=== PATIENT | female | born 1990 | race Caucasian/White ===

== ENCOUNTER 2019-12-15 12:15 | Inpatient (IN) | payer MEDICAID, SELFPAY ==
[2019-12-15] VITALS (44 sets, daily range): BP systolic 103–138; BP diastolic 57–97; PULSE 55–189; RESP 16; TEMP 36.6–37.8; O2SAT 84–100; BMI 25.1
--- NOTE | 2019-12-15 | PLAC_PTH ---
PATIENT: KYLE HILL LOC: WP U#:[id number] AGE/SX: 29/F ROOM: WP019 RE12/15/[address]: Dr. Steffany Ruano MD : 1990 BED: 1 DIS: 12/17/2019 SPEC #: [id number] RECD: 12/15/19 22:14 STATUS: CRISTIANE LAVERNE #: [id number] RADHA: 12/15/19 00:[address]: Steffany Ruano DEPT: SURGICAL PATHOLOGY RECD BY: Jose Raul Ocasio ENTERED: 12/16/19 12:04 SP TYPE: PLACENTA OTHR DR: No Primary Care Phys Tissues: Placenta, NOS Procedures: Surgery Specimen Level V HEADER OPERATION: Vaginal delivery PRE-OP DIAGNOSIS: Growth restriction of fetus TISSUE SUBMITTED: Placenta MICROSCOPIC DIAGNOSIS Reilly placenta (294 gm): Umbilical cord - trivascular with no inflammation. Placental membranes - no evidence of inflammation. Placental disc - Chichi-Lito change and intervillous congestion. AM:alexandra 12/17/19 MICROSCOPIC DESCRIPTION Slides are reviewed. GROSS DESCRIPTION SPECIMEN: PLACENTA / CLINICAL INFORMATION: A. Weight: 2.33 kg B. Gestational Age: 38 weeks C. Sex: Male PLACENTAL WEIGHT (POST FIXATION): 294 gm PLACENTAL DIMENSIONS: 17 x 12 x 2.5 cm PLACENTAL SHAPE: Usual ovoid, received in two fragments PLACENTAL WEIGHT FOR GESTATIONAL AGE: Under 10th percentile MEMBRANES - Present A. Insertion: Marginal B. Site of rupture from edge: At edge of placental disc C. Color of membrane: Machado-gabriel D. Abnormalities: None UMBILICAL CORD - Present A. Color: Machado-gabriel B. Insertion: Eccentric and received in two parts C. Length: 35 cm D. Diameter: 1 cm E. Number of vessels: Three F. Abnormalities: None PLACENTAL DISC - Present A. Color of surface: Machado-gabriel B. surface abnormalities: None C. Maternal cotyledons: Intact with minimal tears D. Attached retro placental clot: No clot E. Cut surface: Dark red and spongy F. Lesions: None G. Separate clot: 4.5 x 5 x 1 cm SECTIONS SUBMITTED: 1. Umbilical cord ( end notched) 2. Umbilical cord, placental end 3. Membrane roll 4. Placental disc, and maternal surfaces 5. Placental disc, and maternal surfaces 6. Placental disc, and maternal surfaces AM:alexandra 12/16/19 TC:5 CPT: 39896
[2019-12-15] MEDS: Lactated Ringers 1,000 ML 999 ML IV (12:45)
[2019-12-15] MEDS: Oxytocin 30 units/NS 500 ml 30 UNITS/500 ML IV.SOLN IV (13:15)
[2019-12-15 13:34] LABS: Absolute Lymphocyte Count 1.96 X10^3/uL (0.83-4.51); Absolute Neutrophil Count 11.1 X10^3/uL (2.0-7.7); Basophil# 0.05 X10^3/uL; Basophil% 0.3 % (0-1); Eosinophil# 0.17 X10^3/uL; Eosinophils% 1.2 % (0-5); Hematocrit 38.7 % (37-47); Hemoglobin 12.6 g/dL (12.0-15.0); Lymphocyte # 1.96 X10^3/ul (4.0); Lymphocyte % 13.5 % (19-41); Mean Corp Hgb Conc 32.6 g/dL (32-36); Mean Corpuscular Hgb 30.6 pg (27.0-32.0); Mean Corpuscular Volume 93.9 fL (81-99); Mean Platelet Vol. 11.4 fl (6.2-12.0); Monocyte# 0.94 X10^3/uL; Monocyte% 6.5 % (0-10); NRBC Flagged by Analyzer 0 % (0-5); Neutrophil # 11.09 X10^3/uL (2.7-7.7); Neutrophil % 76.7 % (47-70); Platelet Count 177 K/mm3 (150-450); RBC Distribution Width CV 14.3 % (11.6-14.6); RBC Distribution Width SD 48.9 fl (35.1-43.9); Red Blood Count 4.12 M/mm3 (4.2-5.4); White Blood Count 14.5 K/mm3 (4.4-11.0)
[2019-12-15 13:51] LABS: Amphetamine Urine VISTA NEGATIVE (<1000 ng/mL); Barbiturate Urine VISTA NEGATIVE (< 200 ng/mL); Benzodiazepine Urine VISTA NEGATIVE (< 200 ng/mL); Cocaine Urine VISTA NEGATIVE (< 300 ng/mL); Ecstacy Urine VISTA NEGATIVE (< 500 ng/mL); Methadone Urine VISTA NEGATIVE (< 300 ng/mL); PCP Urine VISTA NEGATIVE (< 25 ng/mL); THC Urine VISTA NEGATIVE (< 50 ng/mL); Vista UDS pH Range 7
[2019-12-15] MEDS: Lactated Ringers 500 ML 999 ML IV (14:40)
[2019-12-15] MEDS: fentaNYL-bupivacaine (epidural) 100 ML BAG EPIDURAL ×2 (15:44→19:52)
[2019-12-15] MEDS: Lactated Ringers 1,000 ML 200 ML IV (16:07)
--- NOTE | 2019-12-15 17:49 | PCM.HP.OB ---
History Date of Admission: 10/29/15 Final MASON: 12/29/19 Final MASON Source: US <20 weeks Gestational age: 38 Weeks and 0 Days History of this : This is a 29 year-old, 4 para 2-0-1-2 at 38 weeks gestation with intrauterine growth restriction, estimated weight approximately 6 percentile by ultrasound. She denies any vaginal bleeding or leaking of fluid. She has good movement. is complicated to date by late care, tobacco use in , history of previous small for gestational age , abnormal Pap smear. Allergies azithromycin [From Zithromax] Allergy (Verified 12/15/19 12:40) Itching sulfamethoxazole [From Bactrim] Allergy (Verified 02/18/17 15:08) Itching trimethoprim [From Bactrim] Allergy (Verified 02/18/17 15:08) Itching Smoking Status: Current every day smoker Alcohol: None Number of Fetus(es): 1 NST - FHR Rate Baby A Baseline: normal Variability:: Moderate Accelerations:: 15 x 15 Decelerations:: None NST Reactive:: Yes FHR Category:: Category I Uterine Activity:: irreg History Past Pregnancies: Past Pregnancies Delivery Date Name GA/ Weeks Outcome Route Wt Sex Labor Length Anesthesia Delivery Location Provider FOB Expected Delivery Method: Spontaneous Vaginal Review of Systems Constitutional: Denies: Chills, Fever Eyes: Denies: Blurred vision Cardiovascular: Denies: Chest Pain Respiratory: Denies: Cough, Shortness of Breath Genitourinary: Denies: Dysuria Skin: Denies: Pruritis, Rash Neurological: Denies: Blurred vision, Change in Speech Physical Exam Vitals: Vital Signs Temp Pulse BP Pulse Ox 98.0 F 60 104/67 99 12/15/19 15:58 12/15/19 17:02 12/15/19 17:00 12/15/19 17:02 General: Alert, Cooperative, No apparent distress Cardiovascular: Regular rate Lungs: Normal air movement Abdomen: Soft, Non Tender, Gravid Neurological: Cranial nerves II-XII grossly intact Estimated gestational size: Appropriate for gestational size Presentation: Cephalic Cervix Dilation (cm): 3 Station: -3 Effacement (%): 60 Assessment/Plan All Active Problems Pyelonephritis (Acute) This is a 29 year-old 4 para 2-0-1-2 at 38 weeks gestation with intrauterine growth restriction. Risk benefits and alternatives to induction were discussed with the patient her questions were answered to her satisfaction she desires to proceed. Pelvis clinically adequate to expect vaginal delivery. May have epidural as needed for pain control. Recent COVID-19 test was negative. Patient strongly desires tubal ligation before being discharged home. She understands this is permanent, irreversible risk of failure and regret. Will attempt to schedule this in the OR tomorrow if acuity of the unit does not allow it to be done tonight.
[2019-12-15] MEDS: Oxytocin 30 units/NS 500 ml 30 UNITS/500 ML IV.SOLN 334 UNITS IV (21:28)
--- NOTE | 2019-12-15 21:42 | PCM.OPRPT ---
Vaginal Delivery Maternal Presentation: Medically Indicated Induction Method of Induction: Pitocin, Amniotomy Medical Reason for Induction: - - IUGR Amniotic Membrane Rupture Type: Artificial Amniotic Fluid Description: Clear Final MASON: 12/29/19 Final MASON Source: US <20 weeks Gestational age: 38 Weeks and 0 Days Date of Procedure: 12/15/19 Pre-Operative Diagnosis: labor Post-Operative Diagnosis: same Surgery/ Procedure Performed: Spontaneous Vaginal Delivery Type of Anesthesia: Epidural Description of Procedure: A vigorous female was delivered KELI over a small first-degree perineal laceration. The remainder the infant was delivered with maternal pushing and gentle traction only in less than 15 seconds. The Pitocin infusion was initiated for active management of the third stage. The cord was clamped and cut after 1 minute. The infant was attended to by the waiting nursing staff. The placenta was delivered spontaneously and intact. The cervix and vagina were intact. Laceration was not repaired. Sponge and needle counts were correct. A vaginal sweep was completed by me. Presentation: KELI Placental Delivery Description: Spontaneous Placenta Disposition: [facility] Cord Vessel Description: 3 Vessels Cord Entanglement: None Drain: Hernandes to straight drain Estimated Blood Loss: 300 A gender: Female - Migdalia (1 minute): 8 (5 minute): 9 Episiotomy Description: None Laceration: 1st degree - perineal, < 1 cm, not repaired Medications given after delivery: IV Pitocin Complications: None
[2019-12-15 22:18] LABS: Pathology Specimen OB SEE PATHOLOGY REPORT
[2019-12-16] VITALS (18 sets, daily range): BP systolic 112–157; BP diastolic 60–91; PULSE 51–68; RESP 16–18; TEMP 36.3–37.1; O2SAT 96–100
--- NOTE | 2019-12-16 | FALS_PTH ---
PATIENT: KYLE HILL LOC: WP U#:[id number] AGE/SX: 29/F ROOM: WP019 RE12/15/[address]: Dr. Steffany Ruano MD : 1990 BED: 1 DIS: 12/17/2019 SPEC #: [id number] RECD: 12/16/19 14:36 STATUS: CRISTIANE LAVERNE #: [id number] RADHA: 12/16/19 00:[address]: Steffany Ruano DEPT: SURGICAL PATHOLOGY RECD BY: Jose Raul Ocasio ENTERED: 12/16/19 14:36 SP TYPE: FALL TUBES OTHR DR: No Primary Care Phys Tissues: Fallopian tube Procedures: Surgery Specimen Level II HEADER OPERATION: bilateral tubal occlusion PRE-OP DIAGNOSIS: Sterilization TISSUE SUBMITTED: Bilateral fallopian tubes MICROSCOPIC DIAGNOSIS Bilateral fallopian tubes, salpingectomy: Bilateral fallopian tubes including fimbrial ends, no pathologic diagnosis. CAT:alexandra 7/31/20 MICROSCOPIC DESCRIPTION Slides are reviewed. GROSS DESCRIPTION Received in fixative is one container labeled with the patient's name and designated bilateral fallopian tubes. The specimen consists of bilateral fallopian tubes including fimbrial ends measuring 7 cm in length and 0.5 cm in diameter and 8 cm in length and 0.5 cm in diameter. The fallopian tubes are not identified as right or left. Sections reveal unremarkable cut surfaces. Mathematics Academic Chair sections are submitted in two cassettes as follows: 1 - first fallopian tube, 2?-?second fallopian tube. / CAT:alexandra 12/16/19 TC:4 CPT: 95869 x2
[2019-12-16] MEDS: Acetaminophen 500 MG Tablet 1000 MG PO (03:50)
[2019-12-16] MEDS: Naproxen 250 MG Tablet 500 MG PO (05:12)
[2019-12-16 05:54] LABS: Hematocrit 35.7 % (37-47); Hemoglobin 11.9 g/dL (12.0-15.0); Mean Corp Hgb Conc 33.3 g/dL (32-36); Mean Corpuscular Hgb 30.4 pg (27.0-32.0); Mean Corpuscular Volume 91.3 fL (81-99); Platelet Count 144 K/mm3 (150-450); RBC Distribution Width CV 13.9 % (11.6-14.6); RBC Distribution Width SD 46.2 fl (35.1-43.9); Red Blood Count 3.91 M/mm3 (4.2-5.4)
[2019-12-16] MEDS: 0.9% Saline Lock 10 ML Syringe IV ×3 (07:53→12:13)
[2019-12-16] MEDS: Lactated Ringers 500 ML 999 ML IV (08:28)
--- NOTE | 2019-12-16 08:35 | NURSING ---
Ordered received for no SCDs. Pt to receive 500 cc LR IV bolus pre-op per telephone call with OR charge nurse as of 08 on 12/16/2019.
[2019-12-16] MEDS: Lactated Ringers 1,000 ML 100 ML IV ×2 (09:13→09:30)
--- NOTE | 2019-12-16 09:32 | NURSING ---
0828: Pt informed of orders received for pre-op. IV site intact and IV bolus initiated. Pre-op checklist started and completed. 0845: Report given to NUTRITIONAL YEAST SUPERVISOR, assuming care. IV observed at this time to be infiltrated. IV bolus stopped. NUTRITIONAL YEAST SUPERVISOR to change IV site per NUTRITIONAL YEAST SUPERVISOR. Pt to OR for tubal as scheduled. Baby to nursery at this time due to no support person present.
--- NOTE | 2019-12-16 10:34 | OP.PCM_ITS ---
Report of Operation Date of Procedure: 12/16/19 Pre-Operative Diagnosis: sterilization request Post-Operative Diagnosis: same Surgery/Procedure Performed:: bilateral salpingectomy Description of Surgical Findings:: normal tubes and ovaries senior technical project manager: Jackelyn Genao Type of Anesthesia:: General Anesthesiologist: Orlando Judd Special Medications: none Specimen's removed: bilateral fallopian tubes Drains: none Estimated Blood Loss (mL): 10 Fluids Replaced: 800 cc Description of Procedure: The patient was taken the operating room where she is prepped and draped in dorsal supine position. Her epidural was not adequate so general anesthetic had been initiated. A 3 cm subumbilical incision was made with the scalpel and carried through to underlying layer fascia with a scalpel. The fascia was gras ped with Allis clamps and tented up and entered sharply with a scalpel. Peritoneum was tented up between hemostats and entered with Metzenbaum scissors. The patient was tilted to the left and the right tube was identified and followed out to the fimbriated end. The LigaSure device was used to clamp, seal, and transect the tube along the antimesenteric portion to the insertion at the cornua. The tube was amputated with the cornea with the LigaSure device. The pedicles were hemostasis. Same procedure was performed on the contralateral side. The fascia was closed with 0 Vicryl suture in a running standard fashion. The skin was reapproximated with full suture in a subcuticular fashion and skin glue was placed over the incision. She was awakened taken recovery room in stable condition. All sponge and needle counts were correct. I performed the entire procedure with assistance. Grafts/Implants Used: none - Complications none - Admit VTE Documentation VTE Present on Admission: No VTE Mechan Device Prophylaxis: SCD's VTE Pharm Prophylaxis ordered?: No Reason prophylaxis not ordered:: Treatment Not Indicated
--- NOTE | 2019-12-16 19:05 | CASEMGMT ---
Social Work Assessment Labor and Delivery Unit Date of Referral: 12/16/2019 Date of Intervention: 12/16/2019 Time of Intervention: 19:05 Reason for Referral: Substance Use, positive THC early on in . History obtained from: MEDICAL RECORD, MOTHER OF BABY (MOB) Household composition: MOB, FOB-Jacques Miranda, son-Duy Miranda age 4 and Jacques?s son, Renny. Educational Status: High School Graduate Financial Status: Limited. MOB reports Jacques is currently not working and is currently admitted to ICU here at [facility]. MOB states she is on maternity leave from [employer]. Infant Supplies: MOB reports has all needed supplies for baby including clothes, crib, car seat, diapers, wipes. Childcare/Caregiver(s): MOB reports will be main caregiver for baby Migdalia ham. Transportation: MOB denies any issues with transportation Programs/Agencies Involved: S, [facility] Children Services/Legal Issues: MOB reports history of children services involvement with her first child, Ben Lindsay who is now age 9. MOB reports Ben has lived with his father for the last 3 years. Behavioral Health Issues: Mental Health History: MOB denies any history of mental health. Substance Use History: MOB reported is a ? pack a day smoker. MOB reports she and FOB do not smoke in the home. MOB admits to marijuana use early on in . MOB states care did not begin until she was 3 months into . MOB?s tox screen was negative upon admission. Baby?s urine tox screen was negative. Awaiting meconium results. Family/Social Stressors: MOB reports found FOB unresponsive last week and he is been in ICU on life support. MOB states today FOB was extubated, and she was able to speak with him. MOB states has had good support from family. Support Systems: MOB reports good support from both her family and FOB?s family. Depression/Shaken Baby/Safe Sleeping Reviewed and resources provided. ASSESSMENT: Met with MOB in room. Introduced role and reason for referral. MOB holding baby Migdalia ham upon entering the room. MOB discussed use of marijuana and believes last use was very early on in . MOB states would use marijuana recreationally and denies plan to continue use. MOB was aware of positive tox screen for THC during . MOB reports did not have care until she was 3 months along. Informed MOB will need to follow up on baby girls meconium results. MOB verbalized understanding. MOB reports is a ? pack a day smoker and states does not smoke in the home. MOB denies any other substance use. Discuss FOB?s current status as MOB reported FOB is admitted to ICU and was extubated today. MOB states was able to speak with FOB and updated on the of their daughter. MOB denies any history of mental health for self or FOB. MOB reports is not aware of any substance use for FOB. MOB reports feels safe in the home and is looking forward to going home. MOB reports good support from family. MOB denies any needs for resources and states already called WIC this day to get baby established. MOB was provided with list of resources for [facility]. Updated nursing on this worker?s assessment. Anticipate discharge tomorrow, 12/17/2019 PLAN: HOME WITH RESOURCES PROVIDED. No other services requested or indicated. -Leonarda Mccarthy, SPANISH INTERPRETER/TRANSLATOR, TENNIS BALL COVER CEMENTER
[2019-12-17 01:18] VITALS: BP 135/74; PULSE 48
[2019-12-17 01:25] VITALS: BP 135/74; PULSE 70; RESP 18; TEMP 36.6
--- NOTE | 2019-12-17 07:45 | PCM.PN.OB ---
Subjective: Patient seen at bedside. Requesting to be discharged home as soon as possible. Pain is controlled. Incision from tubal ligation is well approximated, not red or edematous. Bottle feeding infant. - Physical Exam Vitals/I&O's: Vital Signs Temp Pulse Resp BP Pulse Ox 97.9 F 70 18 135/74 H 98 12/17/19 01:25 12/17/19 01:25 12/17/19 01:25 12/17/19 01:25 12/16/19 12:51 Oxygen Flow Rate (L/min) 2 Oxygen Delivery Method Room Air Weight: 165 lb 6.4 oz Body Mass Index (BMI) 25.1 Intake and Output for Last 24 Hours 12/15/19 12/16/19 12/17/19 23:59 23:59 23:59 Intake Total 3479.75 / 3812.75 1553.00 / 1553.00 Output Total 1400 / 1400 1000 / 1000 Balance 2079.75 / 2412.75 553.00 / 553.00 General: Alert, Oriented x3 Neck: Supple Lungs: Normal air movement Cardiovascular: Regular rate Abdomen: Soft, Non Tender, Passing Flatus Skin: No rashes Neurological: Cranial nerves II-XII grossly intact Psych/Mental Status: Normal Affect, Appropriate Current Medications Acetaminophen (Tylenol) 1,000 mg PO Q8H PRN PRN PRN Reason: Pain Score 1-3/10 Last Admin: 12/16/19 03:50 Dose: 1,000 mg Documented by: Bisacodyl (Dulcolax) 10 mg RECTAL UD PRN PRN Reason: If no BM Dibucaine (Dibucaine) 1 applic TOPICAL TID PRN PRN; Protocol PRN Reason: Discomfort Hydrocortisone (Hytone) 1 applic TOPICAL TID PRN PRN; Protocol PRN Reason: Discomfort Methylergonovine Maleate (Methergine) 0.2 mg IM X1 PRN PRN Reason: Excess bleeding/uterine atony Naproxen (Naprosyn) 500 mg PO Q8H PRN PRN PRN Reason: Pain Score 1-3/10 Last Admin: 12/16/19 05:12 Dose: 500 mg Documented by: Ondansetron HCl (Zofran) 4 mg IV Q4H PRN PRN PRN Reason: Nausea Oxycodone HCl (Oxyir) 5 - 10 mg PO Q4H PRN PRN PRN Reason: Pain Score 4-10/10 Senna/Docusate Sodium (Senokot-S, Sandra-Colace) 1 - 2 tablet PO DAILY PRN PRN PRN Reason: Constipation Simethicone (Mylicon) 80 mg PO PCHS PRN PRN Reason: Indigestion/Stomach pain Sodium Chloride () 5 - 15 ml IV UD PRN PRN Reason: SALINE FLUSH Last Admin: 12/16/19 12:13 Dose: 10 ml Documented by: Medical Necessity - Tobacco Use Smoking Status: Current every day smoker Assessment/Plan All Active Problems Pyelonephritis (Acute) PPD 2 intact perinium Post op bilateral tubal ligation Routine care Discharge home today
[2019-12-17 07:51] VITALS: BP 119/62; PULSE 56; RESP 18; TEMP 37.1; O2SAT 98
[2019-12-17 07:52] VITALS: PULSE 64; O2SAT 98
--- NOTE | 2019-12-17 07:56 | DCINST_ITS ---
Discharge Diet: No Restrictions Discharge Activity: Return to Normal Activity Allergies/Adverse Reactions: Allergies azithromycin [From Zithromax] Allergy (Verified 12/15/19 12:40) Itching sulfamethoxazole [From Bactrim] Allergy (Verified 02/18/17 15:08) Itching trimethoprim [From Bactrim] Allergy (Verified 02/18/17 15:08) Itching Medications to take at Discharge Oxycodone [Oxyir] 5 - 10 mg PO Q4H PRN PRN 3 Days #8 tablet 12/17/19 The following prescriptions were given: Oxycodone [Oxyir] 5 - 10 mg PO Q4H PRN PRN 3 Days #8 tablet PRN Reason: Pain Score 4-10/10 Transmission Status: Sent to [id number] Primary Care Physician: Care Physician,No Primary [Primary Care Provider] - Test Results: Test results from this visit will be discussed in further detail at your follow- up appointment, if applicable. Proposed Discharge Date: 12/17/19
[2019-12-17 07:57] VITALS: BP 119/62; PULSE 56; RESP 18; TEMP 37.1; O2SAT 98
--- NOTE | 2019-12-17 07:58 | DCINST_ITS ---
Discharge Diet: No Restrictions Discharge Activity: Return to Normal Activity Additional Instructions: If you experience any of the following, contact your healthcare provider. * Bleeding that soaks a pad every hour for 2 hours * Fever 100.4 or higher * Unrelieved incision or abdominal pain * Swelling, redness, discharge or bleeding from your incision or episiotomy site * Your incision begins to separate * Problems urinating (including inability to urinate or burning while urinating). * Visual changes * Severe headache * Flu-like symptoms * Pain or redness in one of both of your breasts * Pain, warmth, tenderness or swelling in your legs, especially the calf area * Frequent nausea and vomiting * Symptoms of depression or anxiety If you experience any of the following, call 911 or go to the nearest Emergency Room. * Chest pain * Problems breathing * Seizure activity * Partial or complete paralysis of a body part, slurred speech, weakness or drooping of the face, or a sudden inability to walk or hold your balance Allergies/Adverse Reactions: Allergies azithromycin [From Zithromax] Allergy (Verified 12/15/19 12:40) Itching sulfamethoxazole [From Bactrim] Allergy (Verified 02/18/17 15:08) Itching trimethoprim [From Bactrim] Allergy (Verified 02/18/17 15:08) Itching Medications to take at Discharge Oxycodone [Oxyir] 5 - 10 mg PO Q4H PRN PRN 3 Days #8 tablet 12/17/19 The following prescriptions were given: Oxycodone [Oxyir] 5 - 10 mg PO Q4H PRN PRN 3 Days #8 tablet PRN Reason: Pain Score 4-10/10 Transmission Status: Sent to [id number] Please Follow Up With: Steffany Ruano MD When: 2 weeks virtual and 6 weeks in office Primary Care Physician: Care Physician,No Primary [Primary Care Provider] - Test Results: Test results from this visit will be discussed in further detail at your follow- up appointment, if applicable. Proposed Discharge Date: 12/17/19
--- NOTE | 2019-12-17 07:58 | PCM.DCVAG ---
Discharge Diet: No Restrictions Discharge Activity: Return to Normal Activity Additional Instructions: If you experience any of the following, contact your healthcare provider. Bleeding that soaks a pad every hour for 2 hours Fever 100.4 or higher Unrelieved incision or abdominal pain Swelling, redness, discharge or bleeding from your incision or episiotomy site Your incision begins to separate Problems urinating (including inability to urinate or burning while urinating). Visual changes Severe headache Flu-like symptoms Pain or redness in one of both of your breasts Pain, warmth, tenderness or swelling in your legs, especially the calf area Frequent nausea and vomiting Symptoms of depression or anxiety If you experience any of the following, call 911 or go to the nearest Emergency Room. Chest pain Problems breathing Seizure activity Partial or complete paralysis of a body part, slurred speech, weakness or drooping of the face, or a sudden inability to walk or hold your balance Allergies/Adverse Reactions: Allergies azithromycin [From Zithromax] Allergy (Verified 12/15/19 12:40) Itching sulfamethoxazole [From Bactrim] Allergy (Verified 02/18/17 15:08) Itching trimethoprim [From Bactrim] Allergy (Verified 02/18/17 15:08) Itching Medications to take at Discharge Oxycodone [Oxyir] 5 - 10 mg PO Q4H PRN PRN 3 Days #8 tablet 12/17/19 The following prescriptions were given: Oxycodone [Oxyir] 5 - 10 mg PO Q4H PRN PRN 3 Days #8 tablet PRN Reason: Pain Score 4-10/10 Transmission Status: Sent to [id number] Please Follow Up With: Steffany Ruano MD When: 2 weeks virtual and 6 weeks in office Primary Care Physician: Care Physician,No Primary [Primary Care Provider] - Test Results: Test results from this visit will be discussed in further detail at your follow-up appointment, if applicable. Proposed Discharge Date: 12/17/19
--- NOTE | 2019-12-20 10:50 | CASEMGMT ---
SOCIAL WORK Report called to Danae with [facility] regarding MOB's use of THC during and FOB's reported use of meth. Will fax meconium results once received. Radha Mccarthy, ENVIRONMENTAL HEALTH AND SAFETY MANAGER, CAGE TENDER
== END 2019-12-17 10:20 | disposition home or self-care (01) | DRG 541 ==
PROVIDERS: Obstetrics & Gynecology; Admitting Provider Obstetrics & Gynecology; Referring Provider Obstetrics & Gynecology; Visit Provider Obstetrics & Gynecology
PROC: 0UL70ZZ Occlusion of Bilateral Fallopian Tubes, Open Approach (ICD-10-PCS; principal; 2019-12-16 09:25)
DX: O36.5930 Maternal care for other known or suspected poor fetal growth, third trimester, not applicable or unspecified (principal); O70.0 First degree perineal laceration during delivery; O99.334 Smoking (tobacco) complicating childbirth; F17.200 Nicotine dependence, unspecified, uncomplicated; Z3A.38 38 weeks gestation of pregnancy; Z37.0 Single live birth; Z30.2 Encounter for sterilization
CPT/HCPCS: 59025; 59050; 80307; 85025; 85027; 86850; 86900; 86901; 87635; 88302; 88307; 94799; 99218; J7120; A4216; G0378; J2405; U0003

== ENCOUNTER 2023-10-21 09:01 | Emergency (ER) | payer MEDICAID, SELFPAY ==
[2023-10-21 09:02] VITALS: BP 115/74; PULSE 76; RESP 16; TEMP 35.9; O2SAT 100; BMI 17.4
--- NOTE | 2023-10-21 09:29 | ED.VIS.DENTA ---
HPI History of Present Illness Chief Complaint: Dental Detail of Chief Complaint: Dental pain Narrative Narrative: Patient presents with right lower dental pain that started 2 days ago. She describes some swelling to her gum. He denies fevers or chills or sweats. Patient does not have primary care physician or dentist currently. She denies any trauma to her teeth. PFSH PFSH Home Medications ?Medication ?Instructions ?Recorded ?Last Taken ?Type clindamycin HCl 300 mg capsule 300 mg PO Q6H #40 CAPSULES 10/21/23 Unknown Rx (Cleocin HCl) naproxen 500 mg tablet 500 mg PO BID #20 tabs 10/21/23 Unknown Rx Allergy/AdvReac Type Severity Reaction Status Date / Time azithromycin (From Zithromax) Allergy Itching Verified 12/15/19 12:40 sulfamethoxazole (From Allergy Itching Verified 02/18/17 15:08 Bactrim) trimethoprim (From Bactrim) Allergy Itching Verified 02/18/17 15:08 Social History Smoking Status: Current every day smoker tobacco type: cigarettes ROS ROS ED Review of Systems ROS Unobtainable: other Constitutional Constitutional ED: Reports lethargy; Denies chills, fever(s), sweats or weight loss Eyes Eyes: Denies blurry vision, change in vision or diplopia ENT ENT ED: Reports other Details: Dental pain ; Denies rhinorrhea or sore throat Cardiovascular Cardiovascular: Denies chest pain, orthopnea or racing heartbeat Respiratory/Chest Respiratory/Chest: Denies cough, dyspnea, dyspnea on exertion, orthopnea or sputum Gastrointestinal Gastrointestinal: Denies abdominal pain, diarrhea, nausea or vomiting Genitourinary Genitourinary ED: Denies dysuria, hematuria or urinary frequency Musculoskeletal Musculoskeletal: Denies arthralgias, back pain, myalgias or neck pain Integumentary Denies abscess, Abrasions or rash Neurologic Neurologic: Denies headache(s) or weakness Psychiatric Psychiatric: Denies anxiety, depression or suicidal thoughts Endocrine Endocrinology: Denies polydipsia, polyphagia or polyuria Hematologic/Lymphatic Hematologic/Lymphatic: Denies easy bleeding, easy bruising or lymphadenopathy Allergic/Immunologic Allergic/Immunologic ED: Denies mouth swelling, tongue swelling or urticaria EXAM Physical Exam Const Vital Signs: 10/21/23 09:02 Temperature 96.7 F L Temperature Source Temporal Pulse Rate 76 Respiratory Rate 16 Blood Pressure 115/74 Blood Pressure Mean 87 Pulse Ox 100 Oxygen Delivery Method Room Air Positive well nourished and well developed General Appearance ED: well developed and NAD HEENT Reports TM's clear and moist mucous membranes HEENT Narrative: Dentition-patient has tenderness palpation over right lower molar #31. I do not appreciate any gingival erythema or abscess. No trismus on exam. No facial erythema or cellulitic changes noted. normocephalic and atraumatic; Negative for trauma or tenderness Tympanic Membrane ED: Yes TM's clear Eyes PERRL and EOMs intact bilaterally General Eye ED: Negative for pale conjunctiva or scleral icterus Neck no lymphadenopathy, supple and no JVD General: Negative for tenderness Chest Wall inspection of chest normal and palpation of chest normal Chest: Negative for tenderness Resp normal respiratory effort and clear to auscultation bilaterally Effort and Inspection: Negative for respiratory distress or pain with movement Auscultation: Negative for rhonchi, wheezes or diminished lung sounds Cardio regular rate, regular rhythm, S1 normal heart sound, S2 normal heart sound and no murmurs Peripheral Pulses: pulses 2+ throughout GI normal to inspection, nondistended, normoactive bowel sounds, soft to palpation, non-tender, non-distended and no masses Back/Spine no CVA tenderness and no thoracic nor lumbar tenderness Extremity normal to inspection General Extremety ED: Negative for edema General Extremity: Negative for edema Neuro oriented x3, CN's II-XII intact bilaterally, no sensory deficits noted and gait normal Sensorium / Orientation: awake, alert, oriented to person, oriented to place and oriented to time Motor Exam: strength 5/5 throughout and strength abnormal Psych mental status grossly normal Skin no rashes or lesions noted and no wounds MDM MDM MDM Narrative Medical decision making narrative: Patient with dental pain without evidence of fever or significant swelling. Will start on clindamycin. She does have a broken and carry tooth #31 that is tender to palpation. Will give her naproxen for discomfort. Refer to dentist for follow-up. Discharge Plan Triage Chief Complaint: Dental ED Provider: Gabriel Mitchell Dx/Rx/DC Orders Clinical Impression: Pain, dental Instructions: ED Dental Pain Prescriptions: New clindamycin HCl [Cleocin HCl] 300 mg capsule 300 mg PO Q6H Qty: 40 0RF naproxen 500 mg tablet 500 mg PO BID Qty: 20 0RF Primary Care Provider: Care Physician,No Primary Referrals: Care Physician,No Primary [Primary Care Provider] - Activity Restrictions/Additional Instructions: Follow-up with the dentist at earliest possible time. Print Language: Albanian Disposition Disposition: Home, Self Care
[2023-10-21] MEDS: Clindamycin HCl 150 MG Capsule 300 MG PO (09:42)
[2023-10-21 09:46] VITALS: BP 115/75; PULSE 82; RESP 16; TEMP 36.4; O2SAT 98
== END 2023-10-21 09:47 | disposition home or self-care (01) ==
PROVIDERS: Emergency Provider Emergency Medicine; Visit Provider Emergency Medicine
DX: K08.89 Other specified disorders of teeth and supporting structures (principal); F17.210 Nicotine dependence, cigarettes, uncomplicated
CPT/HCPCS: 99282

== ENCOUNTER 2023-11-04 08:39 | Emergency (ER) | payer MEDICAID, SELFPAY ==
[2023-11-04 08:39] VITALS: BP 111/74; PULSE 62; RESP 14; TEMP 36.1; O2SAT 100; BMI 17.7
--- NOTE | 2023-11-04 08:52 | EDS_ITS ---
HPI History of Present Illness Chief Complaint: Complaint Detail of Chief Complaint: Dysuria x 3 days Informant: patient Onset/Context/Timing Onset: Days (Onset 3 days ago) Context: Sudden Onset Timing: Intermittent Quality: Burning sensation Location: Urethra Current Severity: Gone Maximum Severity: Severe Worsened by: Urination Associated Symptoms Associated Symptoms: Nausea and vomiting x 1 this morning Narrative Narrative: Patient is a 32-year-old female who presents with dysuria for the past 3 days. She denies hematuria or frequency. She states she was seen at the urgent care 1 month ago and told she does not have a bladder infection but had a yeast infection. Patient states she did have no vaginal rash or discharge or itching. She is status post bilateral salpingectomy. She has 3 kids. Patient states her menses are irregular. Last menses was last month. She has no symptoms of . Patient denies fever, chills or night sweats. She does complain of lower back pain. She states she has had problems with infections since age of 6. She has never seen a urologist. 1. She has allergy to sulfa and macrolides with itching. She denies history of STI. She denies history ovarian cyst or endometriosis. Prior similar symptoms: Yes Recent Illness/Hospitalization: Yes PFSH PFSH Home Medications ?Medication ?Instructions ?Recorded ?Last Taken ?Type clindamycin HCl 300 mg capsule 300 mg PO Q6H #40 CAPSULES 10/21/23 Unknown Rx (Cleocin HCl) naproxen 500 mg tablet 500 mg PO BID #20 tabs 10/21/23 Unknown Rx cephalexin 500 mg capsule 500 mg PO Q6 #40 CAPSULES 11/04/23 Unknown Rx phenazopyridine 200 mg tablet 200 mg PO TID 6 doses #7 tabs 11/04/23 Unknown Rx (Pyridium) Allergy/AdvReac Type Severity Reaction Status Date / Time azithromycin (From Zithromax) Allergy Itching Verified 11/04/23 08:40 sulfamethoxazole (From Allergy Itching Verified 11/04/23 08:40 Bactrim) trimethoprim (From Bactrim) Allergy Itching Verified 11/04/23 08:40 Social History (Updated 11/04/23 @ 08:[address] Matt Romero MD) household members: children Smoking Status: Current every day smoker tobacco type: cigarettes substance use type: does not use ROS ROS ED Constitutional Constitutional ED: Denies chills, fever(s), subjective or sweats Eyes Eyes: Denies blurry vision ENT ENT ED: Denies ear pain, rhinorrhea or sore throat Gastrointestinal Gastrointestinal: Reports nausea and vomiting; Denies abdominal pain, constipation, diarrhea or melena Genitourinary Genitourinary ED: Reports dysuria and LMP (females 10-50) Details: Comment: (End of last month); Denies hematuria or urinary frequency Musculoskeletal Musculoskeletal: Reports back pain Integumentary Denies rash Neurologic Neurologic: Denies weakness Hematologic/Lymphatic Hematologic/Lymphatic: Denies anemia, easy bleeding or easy bruising EXAM Physical Exam Const Vital Signs: 11/04/23 08:39 Temperature 96.9 F L Temperature Source Temporal Pulse Rate 62 Respiratory Rate 14 Blood Pressure 111/74 Blood Pressure Mean 86 Pulse Ox 100 Oxygen Delivery Method Room Air Positive well nourished and well developed General Appearance ED: well developed and NAD; Negative for pallor HEENT Reports moist mucous membranes HEENT Narrative: Head is atraumatic normocephalic. Ears normal. Nares patent. Mucosa moist. Eyes PERRL and EOMs intact bilaterally General Eye ED: Negative for pale conjunctiva or scleral icterus Resp normal respiratory effort and clear to auscultation bilaterally Cardio regular rate, regular rhythm, S1 normal heart sound, S2 normal heart sound and no murmurs GI normal to inspection, nondistended, normoactive bowel sounds, non-distended and no masses; Negative for non-tender or hepatosplenomegaly Palpation: soft and tender suprapubic Back/Spine General Back: CVA tenderness left Extremity normal to inspection Neuro oriented x3 and CN's II-XII intact bilaterally Sensorium / Orientation: alert Psych mental status grossly normal Skin no rashes or lesions noted, no wounds and skin turgor normal General Skin Exam: Negative for jaundice or pallor MDM MDM MDM Narrative Medical decision making narrative: Differential diagnosis would include STI, urinary tract infection, interstitial cystitis doubt yeast infection based on patient's symptoms and comments. Will obtain UA. History & Record Review Additional record(s) reviewed:: Prior ED visit (October 2023 for dental pain, February 2017 for acute cystitis without hematuria and October 2015 for pyelonephritis) and Prior labs Lab Data Attestation: I reviewed the patient's lab results. Lab results narrative: UA would indicate a contaminated specimen. Patient does have symptoms consistent with urinary tract infection and concern for French since she has left CVA tenderness. Will treat with cephalexin. Culture was not sent. She was referred to Dr. Lin since she does not have a urologist in town. Labs: Laboratory Results - last 24 hr 11/04/23 09:00 Urine Color Yellow Urine Clarity Cloudy Urine pH 6.0 Ur Specific [place] 1.025 Urine Protein 30 H Urine Glucose (UA) Normal Urine Ketones Negative Urine Occult Blood 25 H Urine Nitrite Negative Urine Bilirubin Negative Urine Urobilinogen Normal Ur Leukocyte Esterase 100 H Urine RBC 0-5 SEEN Urine WBC 10-25 SEEN Ur Squamous Epith Cells 10-25 SEEN Urine Bacteria 1+ Urine Mucus 1+ Discharge Plan Triage Chief Complaint: Complaint ED Provider: Matt Romero Dx/Rx/DC Orders Clinical Impression: Pyelonephritis, Nausea & vomiting Instructions: ED Pyelonephritis, Female (Adult) Prescriptions: New cephalexin 500 mg capsule 500 mg PO Q6 Qty: 40 0RF phenazopyridine [Pyridium] 200 mg tablet 200 mg PO TID Qty: 7 0RF No Action clindamycin HCl [Cleocin HCl] 300 mg capsule 300 mg PO Q6H Qty: 40 0RF naproxen 500 mg tablet 500 mg PO BID Qty: 20 0RF Primary Care Provider: Care Physician,No Primary Referrals: Ofe Lin MD [Med Staff - Active Staff] - 5-7 Days Care Physician,No Primary [Primary Care Provider] - Activity Restrictions/Additional Instructions: 1. Contact Dr. Ofe Lin's office for follow-up. Print Language: Tajik Disposition Disposition: Home, Self Care
[2023-11-04 09:06] LABS: Color, Urine Yellow (Yellow); Glucose, Dipstick Normal (Normal); Ketone-Dipstick Negative (Negative); Leukocyte Esterase-Dipstick 100 /ul (Negative); Nitrite-Dipstick Negative (Negative); Occult Blood-Urine 25 /ul (Negative); Protein-Dipstick 30 mg/dl (Negative); Specific Gravity, Urine 1.025 (1.002-1.030); Urine Bilirubin Dipstick Negative (Negative); Urine Clarity Cloudy (Clear); Urine Urobilinogen Normal (Normal)
[2023-11-04 09:14] LABS: Bacteria 1+ /hpf (None Seen); Mucous, Urine 1+ /hpf (<or=2+); Red Blood Cells-Urine 0-5 SEEN /hpf (0-5); Squamous Epithelial Cells - UA 10-25 SEEN /hpf (5-10); White Blood Cells 10-25 SEEN /hpf (0-5)
[2023-11-04] MEDS: Phenazopyridine 95 MG Tablet 190 MG PO (09:29)
[2023-11-04] MEDS: Cephalexin 500 MG Capsule PO (09:29)
== END 2023-11-04 09:33 | disposition home or self-care (01) ==
LOC: ED 09:21
PROVIDERS: Emergency Provider Emergency Medicine; Referring Provider Emergency Medicine; Visit Provider Emergency Medicine
DX: N12 Tubulo-interstitial nephritis, not specified as acute or chronic (principal); F17.210 Nicotine dependence, cigarettes, uncomplicated; R11.2 Nausea with vomiting, unspecified
CPT/HCPCS: 81001; 99283

== ENCOUNTER 2024-03-08 07:56 | Emergency (ER) | payer MEDICAID, SELFPAY ==
[2024-03-08 07:57] VITALS: BP 109/62; PULSE 80; RESP 16; TEMP 36.4; O2SAT 100; BMI 16.9
--- NOTE | 2024-03-08 08:07 | EX.ED.DYSGE1 ---
HPI History of Present Illness Chief Complaint: Complaint Informant: patient Onset/Context/Timing Onset: Month(s) Context: Gradual Onset Timing: Continuous Quality: Burning Location: Suprapubic area, right adnexal area, and right lower back Worsened by: Nothing Relieved by: Nothing Narrative Narrative: Patient presents with dysuria that has been constant for the past few months. Patient states it feels like she has burning whenever she urinates. Patient states her pain is mainly over the suprapubic and right adnexal area. Patient states it radiates into her back. Patient admits to some nausea and vomiting. Patient denies any fevers or chills. Patient states nothing makes her symptoms worse and nothing makes them better. PFSH PFSH Medical History no medical history no medical history Home Medications ?Medication ?Instructions ?Recorded ?Last Taken ?Type clindamycin HCl 300 mg capsule 300 mg PO Q6H #40 CAPSULES 10/21/23 Unknown Rx (Cleocin HCl) naproxen 500 mg tablet 500 mg PO BID #20 tabs 10/21/23 Unknown Rx cephalexin 500 mg capsule 500 mg PO Q6 #40 CAPSULES 11/04/23 Unknown Rx phenazopyridine 200 mg tablet 200 mg PO TID 6 doses #7 tabs 11/04/23 Unknown Rx (Pyridium) nitrofurantoin 100 mg PO Q12 #10 CAPSULES 03/08/24 Unknown Rx monohydrate/macrocrystals 100 mg capsule Allergy/AdvReac Type Severity Reaction Status Date / Time azithromycin (From Zithromax) Allergy Itching Verified 03/08/24 07:57 sulfamethoxazole (From Allergy Itching Verified 03/08/24 07:57 Bactrim) trimethoprim (From Bactrim) Allergy Itching Verified 03/08/24 07:57 Surgical History (Updated 03/08/24 @ 08:[address] Velasquez Shah DO) History of bilateral salpingectomy Social History household members: children Smoking Status: Current every day smoker tobacco type: cigarettes substance use type: does not use ROS ROS ED Constitutional Constitutional ED: Denies chills or fever(s) Eyes Eyes: Denies blurry vision or change in vision ENT ENT ED: Denies rhinorrhea or sore throat Cardiovascular Cardiovascular: Denies chest pain or palpitations Respiratory/Chest Respiratory/Chest: Denies cough or dyspnea Gastrointestinal Gastrointestinal: Reports nausea and vomiting Genitourinary Genitourinary ED: Reports dysuria; Denies hematuria or urinary frequency Musculoskeletal Musculoskeletal: Reports back pain; Denies neck pain Integumentary Denies abscess or rash Neurologic Neurologic: Denies headache(s) or weakness Allergic/Immunologic Allergic/Immunologic ED: Denies mouth swelling or urticaria EXAM Physical Exam Const Vital Signs: 03/08/24 07:57 Temperature 97.5 F L Temperature Source Oral Pulse Rate 80 Respiratory Rate 16 Blood Pressure 109/62 Blood Pressure Mean 77 Pulse Ox 100 Oxygen Delivery Method Room Air Positive well nourished and well developed General Appearance ED: well developed and NAD HEENT Reports moist mucous membranes Neck supple and no JVD Resp normal respiratory effort and clear to auscultation bilaterally Cardio regular rate and regular rhythm GI non-distended Palpation: soft and tender RLQ and suprapubic; Negative for guarding or rebound tenderness present Extremity normal to inspection Neuro oriented x3, CN's II-XII intact bilaterally and no sensory deficits noted Sensorium / Orientation: alert Motor Exam: strength 5/5 throughout Psych mental status grossly normal MDM MDM MDM Narrative Medical decision making narrative: Differential diagnosis includes urinary tract infection, ectopic , ovarian cyst, and pyelonephritis. Urinalysis will be obtained to assess for urinary tract infection and hematuria. Urine hCG will be obtained to assess for . Lab Data Attestation: I reviewed the patient's lab results. Lab results narrative: Urinalysis was reviewed. Leukocyte esterase was 100 with 50-100 white blood cells. Occult blood was 50 there were 0 red blood cells noted. Urine hCG was reviewed and was negative. Labs: Laboratory Results - last 24 hr 03/08/24 08:26 Urine Color Yellow Urine Clarity Sl. Cloudy Urine pH 6.0 Ur Specific [place] 1.015 Urine Protein 30 H Urine Glucose (UA) Normal Urine Ketones Negative Urine Occult Blood 50 H Urine Nitrite Negative Urine Bilirubin Negative Urine Urobilinogen Normal Ur Leukocyte Esterase 100 H Urine RBC 0 SEEN Urine WBC 50-100 SEEN Ur Squamous Epith Cells 5-10 SEEN Urine Bacteria 0 SEEN Urine Mucus 0 SEEN Urine Test Negative Treatment and Re-Evaluation :: Patient was advised of her findings. Urine culture was ordered. Patient was given a prescription for Macrobid. Patient was given her first dose here. Patient was instructed to drink plenty of fluids. Patient was instructed to follow-up with her primary care physician in 5 to 7 days for further evaluation. Patient understood and was agreeable with the plan. All questions were answered. Discharge Plan Triage Chief Complaint: Complaint ED Provider: Velasquez Shah Dx/Rx/DC Orders Clinical Impression: Urinary tract infection, Tobacco use Instructions: ED UTIs Women Prescriptions: New nitrofurantoin monohyd/m-cryst 100 mg capsule 100 mg PO Q12 Qty: 10 0RF No Action clindamycin HCl [Cleocin HCl] 300 mg capsule 300 mg PO Q6H Qty: 40 0RF naproxen 500 mg tablet 500 mg PO BID Qty: 20 0RF cephalexin 500 mg capsule 500 mg PO Q6 Qty: 40 0RF phenazopyridine [Pyridium] 200 mg tablet 200 mg PO TID Qty: 7 0RF Primary Care Provider: Care Physician,No Primary Referrals: Gary Mead MD [Med Staff - Booster Pump Operator] - 5-7 Days Care Physician,No Primary [Primary Care Provider] - Print Language: [place] African Disposition Disposition: Home, Self Care
[2024-03-08 08:31] LABS: Bacteria 0 SEEN /hpf (None Seen); Mucous, Urine 0 SEEN /hpf (<or=2+); Red Blood Cells-Urine 0 SEEN /hpf (0-5)
[2024-03-08 08:39] LABS: Color, Urine Yellow (Yellow); Glucose, Dipstick Normal (Normal); Ketone-Dipstick Negative (Negative); Leukocyte Esterase-Dipstick 100 /ul (Negative); Nitrite-Dipstick Negative (Negative); Occult Blood-Urine 50 /ul (Negative); Protein-Dipstick 30 mg/dl (Negative); Specific Gravity, Urine 1.015 (1.002-1.030); Urine Bilirubin Dipstick Negative (Negative); Urine Clarity Sl. Cloudy (Clear); Urine Urobilinogen Normal (Normal)
[2024-03-08 08:48] LABS: Squamous Epithelial Cells - UA 5-10 SEEN /hpf (5-10)
[2024-03-08 08:49] LABS: Internal QC Validated? YES +Cl - CLEAR BKGD; Pregnancy, Urine Negative Negative; White Blood Cells 50-100 SEEN /hpf (0-5)
[2024-03-08] MEDS: Nitrofurantoin Macrocrystals 100 MG Capsule PO (09:07)
== END 2024-03-08 09:08 | disposition home or self-care (01) ==
PROVIDERS: Emergency Provider Emergency Medicine; Visit Provider Emergency Medicine
DX: N39.0 Urinary tract infection, site not specified (principal); Z88.1 Allergy status to other antibiotic agents; Z88.2 Allergy status to sulfonamides; F17.210 Nicotine dependence, cigarettes, uncomplicated
CPT/HCPCS: 81001; 81025; 99282

== ENCOUNTER 2024-03-17 07:58 | Emergency (ER) | payer MEDICAID, SELFPAY ==
[2024-03-17 07:58] VITALS: BP 121/77; PULSE 68; RESP 16; TEMP 36.7; O2SAT 99; BMI 16.1
[2024-03-17 08:01] VITALS: BP 121/77; PULSE 68; RESP 16; TEMP 36.7; O2SAT 98
[2024-03-17 08:18] LABS: Mucous, Urine 0 SEEN /hpf (<or=2+)
[2024-03-17 08:36] LABS: Color, Urine Yellow (Yellow); Glucose, Dipstick Normal (Normal); Ketone-Dipstick Negative (Negative); Leukocyte Esterase-Dipstick 500 /ul (Negative); Nitrite-Dipstick Positive (Negative); Occult Blood-Urine 250 /ul (Negative); Protein-Dipstick 30 mg/dl (Negative); Specific Gravity, Urine 1.015 (1.002-1.030); Urine Clarity Sl. Cloudy (Clear); Urine Urobilinogen 4 mg/dl (Normal); Urine pH 6.5 (5.0 - 8.0)
[2024-03-17 08:37] LABS: Urine Bilirubin Dipstick 1 mg/dL (Negative)
[2024-03-17 08:44] LABS: Squamous Epithelial Cells - UA 5-10 SEEN /hpf (5-10); White Blood Cells 25-50 SEEN /hpf (0-5)
[2024-03-17 08:45] LABS: Bacteria 1+ /hpf (None Seen); Red Blood Cells-Urine 25-50 SEEN /hpf (0-5)
[2024-03-17 08:46] LABS: Internal QC Validated? YES +Cl - CLEAR BKGD; Pregnancy, Urine Negative Negative
--- NOTE | 2024-03-17 09:01 | EX.ED.DYSGE1 ---
HPI History of Present Illness Chief Complaint: Complaint Informant: patient Onset/Context/Timing Onset: Weeks Context: Gradual Onset Timing: Continuous Quality: Pressure Location: Suprapubic Worsened by: Urination Relieved by: Nothing Narrative Narrative: Patient presents with dysuria and pelvic pressure that has been getting worse over the past couple weeks. Patient was seen here recently for this. Patient was diagnosed with a urinary tract infection and was given a prescription for Macrobid. Patient states she completed the course of Macrobid. Patient states she did not feel any improvement with the Macrobid. Patient states her symptoms have gotten progressively worse. Patient admits to some subjective chills. Patient denies any fevers. Patient admits to some pain radiating into her back. Patient admits to some nausea but denies any vomiting. PFSH PFSH Medical History no medical history no medical history Home Medications ?Medication ?Instructions ?Recorded ?Last Taken ?Type clindamycin HCl 300 mg capsule 300 mg PO Q6H #40 CAPSULES 10/21/23 Unknown Rx (Cleocin HCl) naproxen 500 mg tablet 500 mg PO BID #20 tabs 10/21/23 Unknown Rx cephalexin 500 mg capsule 500 mg PO Q6 #40 CAPSULES 11/04/23 Unknown Rx nitrofurantoin 100 mg PO Q12 #10 CAPSULES 03/08/24 Unknown Rx monohydrate/macrocrystals 100 mg capsule ciprofloxacin HCl 500 mg tablet 500 mg PO BID #14 TABLETS 03/17/24 Unknown Rx phenazopyridine 200 mg tablet 200 mg PO TID 6 doses #6 tabs 03/17/24 Unknown Rx (Pyridium) Allergy/AdvReac Type Severity Reaction Status Date / Time azithromycin (From Zithromax) Allergy Itching Verified 03/17/24 07:58 sulfamethoxazole (From Allergy Itching Verified 03/17/24 07:58 Bactrim) trimethoprim (From Bactrim) Allergy Itching Verified 03/17/24 07:58 Surgical History History of bilateral salpingectomy Social History household members: children Smoking Status: Current every day smoker tobacco type: cigarettes substance use type: does not use ROS ROS ED Constitutional Constitutional ED: Reports chills and subjective; Denies fever(s) Eyes Eyes: Denies blurry vision or change in vision ENT ENT ED: Denies rhinorrhea or sore throat Cardiovascular Cardiovascular: Denies chest pain or palpitations Respiratory/Chest Respiratory/Chest: Denies cough or dyspnea Gastrointestinal Gastrointestinal: Reports nausea; Denies vomiting Genitourinary Genitourinary ED: Reports dysuria; Denies hematuria Musculoskeletal Musculoskeletal: Reports back pain; Denies neck pain Integumentary Denies abscess or rash Neurologic Neurologic: Denies headache(s) or weakness Allergic/Immunologic Allergic/Immunologic ED: Denies mouth swelling or urticaria EXAM Physical Exam Const Vital Signs: 03/17/24 07:58 03/17/24 08:01 03/17/24 09:58 Temperature 98.1 F 98.1 F Temperature Source Oral Oral Pulse Rate 68 68 54 L Respiratory Rate 16 16 16 Blood Pressure 121/77 H 121/77 H 98/66 Blood Pressure Mean 91 91 76 Pulse Ox 99 98 96 Oxygen Delivery Method Room Air Room Air Room Air 03/17/24 11:00 Temperature Temperature Source Pulse Rate 74 Respiratory Rate 15 Blood Pressure 105/62 Blood Pressure Mean 76 Pulse Ox 97 Oxygen Delivery Method Room Air Positive well nourished and well developed General Appearance ED: well developed and NAD HEENT Reports moist mucous membranes Neck supple and no JVD Resp normal respiratory effort and clear to auscultation bilaterally Cardio regular rate and regular rhythm GI non-distended Palpation: soft and tender suprapubic; Negative for guarding or rebound tenderness present Neuro oriented x3, CN's II-XII intact bilaterally and no sensory deficits noted Sensorium / Orientation: alert Motor Exam: strength 5/5 throughout Psych mental status grossly normal MDM MDM MDM Narrative Medical decision making narrative: Differential diagnosis includes urinary tract infection, pyelonephritis, sexually transmitted infection, and candidiasis. CBC will be obtained to assess for leukocytosis and anemia. Basic metabolic profile will be obtained to assess for electrolyte abnormality and renal function. Urinalysis will be obtained to assess for urinary tract infection and hematuria. Urine hCG will be obtained to assess for . GC and Chlamydia PCR will be obtained to assess for sexually transmitted infection. CT scan of the abdomen pelvis will be obtained to assess for pyelonephritis. Urine culture will be obtained to assess for urinary tract infection. Lab Data Attestation: I reviewed the patient's lab results. Lab results narrative: Urinalysis was reviewed. Leukocyte esterase was 500 with positive nitrates. There were 25-50 white blood cells and 25-50 red blood cells. Occult blood was 250. There is 1+ bacteria. Urine hCG was reviewed and was negative. CBC was reviewed and was within normal limits. Basic metabolic profile was reviewed and was within normal limits. GC and Chlamydia PCR was reviewed and was negative. Labs: Laboratory Results - last 24 hr 03/17/24 03/17/24 08:14 09:38 WBC 10.7 RBC 4.57 Hgb 13.7 Hct 42.5 MCV 93.0 MCH 30.0 MCHC 32.2 RDW Std Deviation 46.3 H RDW Coeff of Jared 13.5 Plt Count 192 MPV 9.8 Immature Gran % (Auto) 0.500 Neut % (Auto) 77.1 H Lymph % (Auto) 14.6 L [place] % (Auto) 6.3 Eos % (Auto) 1.1 Baso % (Auto) 0.4 Absolute Neuts (auto) 8.2 H Absolute Lymphs (auto) 1.56 Nucleated RBC % 0 Sodium 140 Potassium 4.2 Chloride 110 H Carbon Dioxide 27.0 Anion Gap 3 L BUN 13 Creatinine 0.80 Estim Creat Clear Calc 75.92 Est GFR (MDRD) Af Amer 106 Est GFR (MDRD) Non-Af 87 BUN/Creatinine Ratio 16.2 Glucose 84 Calcium 8.9 Urine Color Yellow Urine Clarity Sl. Cloudy Urine pH 6.5 Ur Specific [place] 1.015 Urine Protein 30 H Urine Glucose (UA) Normal Urine Ketones Negative Urine Occult Blood 250 H Urine Nitrite Positive H Urine Bilirubin 1 H Urine Urobilinogen 4 H Ur Leukocyte Esterase 500 H Urine RBC 25-50 SEEN Urine WBC 25-50 SEEN Ur Squamous Epith Cells 5-10 SEEN Urine Bacteria 1+ Urine Mucus 0 SEEN Urine Test Negative Radiography Diagnostic Testing: Clinical Impression(s) from Imaging Studies Abdomen/Pelvis CT 03/17/24 09:09 IMPRESSION: Mild stranding adjacent to the urinary bladder, may be secondary to cystitis. Bilateral L5 pars defects. Levoscoliosis of the thoracolumbar spine. Electronically Signed: Sinai Eisenberg MD at 10:28 EDT , CT scan of the abdomen pelvis was obtained. There is mild stranding adjacent to the urinary bladder secondary to cystitis. There is no acute abnormality noted. There is no free air or free fluid. This was interpreted by the radiologist was also independently reviewed by myself. Treatment and Re-Evaluation :: Patient was given a dose of Rocephin here. Patient was feeling better on reevaluation. Patient was advised of her findings. Patient was given prescription for Pyridium and ciprofloxacin. Patient was instructed to follow-up with her primary care physician in 5 to 7 days for culture results and reevaluation. 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 Patient was given a referral for a primary care physician. Patient was instructed to return if worse in any way. Patient understood and was agreeable with the plan. All questions were answered. Discharge Plan Triage Chief Complaint: Complaint ED Provider: Velasquez Shah Dx/Rx/DC Orders Clinical Impression: Urinary tract infection, Pelvic pain Instructions: ED Cystitis Female Adult Prescriptions: New ciprofloxacin HCl 500 mg tablet 500 mg PO BID Qty: 14 0RF Continued phenazopyridine [Pyridium] 200 mg tablet 200 mg PO TID Qty: 6 0RF No Action nitrofurantoin monohyd/m-cryst 100 mg capsule 100 mg PO Q12 Qty: 10 0RF clindamycin HCl [Cleocin HCl] 300 mg capsule 300 mg PO Q6H Qty: 40 0RF naproxen 500 mg tablet 500 mg PO BID Qty: 20 0RF cephalexin 500 mg capsule 500 mg PO Q6 Qty: 40 0RF Primary Care Provider: Care Physician,No Primary Referrals: Care Physician,No Primary [Primary Care Provider] - Print Language: Divehi Disposition Disposition: Home, Self Care
--- NOTE | 2024-03-17 09:09 | CT_ITS ---
INDICATION: Pelvic pain EXAMINATION: CT ABDOMEN AND PELVIS WITHOUT CONTRAST - CT Abdomen And Pelvis W/O Contrast Injection TECHNIQUE: Helically acquired images were obtained of the abdomen and pelvis without oral or IV contrast. The protocol utilizes one or more of the following dose reduction techniques: automated exposure control, adjustment of mA and/or kV according to patient size,and/or use of iterative reconstruction technique. IV Contrast dosage and agent: None. Oral contrast: None. RADIATION DOSAGE (If Supplied By Facility): CTDIvol = ( 6.05 ) mGy, DLP = ( 291.63 ) mGycm COMPARISON: No relevant prior comparison study available FINDINGS: LOWER CHEST: Lung bases are clear. No cardiomegaly or pericardial effusion. The lack of intravenous contrast limits evaluation of solid visceral organs. LIVER: Homogeneous. No focal mass. GALLBLADDER AND BILIARY TREE: No calcified gallstones. No gallbladder distension or wall edema. No intra- or extrahepatic biliary ductal dilation. PANCREAS: No focal cystic or solid mass. SPLEEN: Normal size without focal cystic or solid mass. ADRENAL GLANDS: No nodules. KIDNEYS AND URETERS: Normal renal size and position. No hydronephrosis. PERITONEUM: No ascites or free air. No other fluid collection. BOWEL: No evidence of acute appendicitis. No stomach or bowel distension. No focal inflammatory change. LYMPH NODES: No enlarged mesenteric or retroperitoneal lymph nodes. VESSELS: Aorta is non-dilated. URINARY BLADDER: There is mild stranding adjacent to the urinary bladder. REPRODUCTIVE ORGANS: No pelvic masses. ABDOMINAL WALL: No discrete abdominal or pelvic wall hernia. BONES: There is a levoscoliosis of the thoracolumbar spine. There are bilateral L5 pars defects. CT/Abdomen/Pelvis without Cont IMPRESSION: Mild stranding adjacent to the urinary bladder, may be secondary to cystitis. Bilateral L5 pars defects. Levoscoliosis of the thoracolumbar spine. Electronically Signed: Sinai Eisenberg MD at 10:28 EDT ,
[2024-03-17 09:46] LABS: Absolute Lymphocyte Count 1.56 X10^3/uL (0.83-4.51); Absolute Neutrophil Count 8.2 X10^3/uL (2.0-7.7); Basophil# 0.04 X10^3/uL; Basophil% 0.4 % (0-1); Eosinophil# 0.12 X10^3/uL; Eosinophils% 1.1 % (0-5); Hematocrit 42.5 % (37-47); Hemoglobin 13.7 g/dL (12.0-15.0); Lymphocyte # 1.56 X10^3/ul (0.83-4.51); Lymphocyte % 14.6 % (19-41); Mean Corp Hgb Conc 32.2 g/dL (32-36); Mean Platelet Vol. 9.8 fl (6.2-12.0); Monocyte# 0.67 X10^3/uL; Monocyte% 6.3 % (0-10); NRBC Flagged by Analyzer 0 % (0-5); Neutrophil # 8.24 X10^3/uL (2.7-7.7); Neutrophil % 77.1 % (47-70); Platelet Count 192 K/mm3 (150-450); RBC Distribution Width CV 13.5 % (11.6-14.6); RBC Distribution Width SD 46.3 fl (35.1-43.9); Red Blood Count 4.57 M/mm3 (4.2-5.4); White Blood Count 10.7 K/mm3 (4.4-11.0)
[2024-03-17 09:57] LABS: Anion Gap 3 (5-15); BUN 13 mg/dL (7-18); BUN/Creat Ratio 16.2 RATIO (10-20); Calcium,Total 8.9 mg/dL (8.5-10.1); Chloride 110 mmol/L (98-107); EST Glomerular Filtration Rate 87 mL/min (>60); Est Glom Filt Rate - Afr Amer 106 mL/min (>60); Estimated Creatinine Clearance 75.92 ml/min; Glucose 84 mg/dL (74-106); Potassium 4.2 mmol/L (3.5-5.1); Sodium Level 140 mmol/L (136-145)
[2024-03-17 09:58] VITALS: BP 98/66; PULSE 54; RESP 16; O2SAT 96
[2024-03-17 11:00] VITALS: BP 105/62; PULSE 74; RESP 15; O2SAT 97
[2024-03-17] MEDS: Ciprofloxacin 500 MG Tablet PO (12:16)
[2024-03-17] MEDS: Phenazopyridine 95 MG Tablet 190 MG PO (12:16)
== END 2024-03-17 12:29 | disposition home or self-care (01) ==
PROVIDERS: Emergency Medicine; Emergency Provider Emergency Medicine; Visit Provider Emergency Medicine
DX: N39.0 Urinary tract infection, site not specified (principal); R10.2 Pelvic and perineal pain; F17.210 Nicotine dependence, cigarettes, uncomplicated; Z88.2 Allergy status to sulfonamides; Z88.1 Allergy status to other antibiotic agents
CPT/HCPCS: 74176; 80048; 81001; 81025; 85025; 87077; 87086; 87088; 87186; 87491; 87591; 99283; A4216

== ENCOUNTER 2024-06-30 12:25 | Emergency (ER) | payer MEDICAID, SELFPAY ==
[2024-06-30 12:26] VITALS: BP 116/58; PULSE 72; RESP 18; TEMP 36.8; O2SAT 100; BMI 17.6
[2024-06-30 13:58] LABS: Color, Urine Yellow (Yellow); Glucose, Dipstick Normal (Normal); Ketone-Dipstick Negative (Negative); Leukocyte Esterase-Dipstick 25 /ul (Negative); Nitrite-Dipstick Negative (Negative); Occult Blood-Urine 10 /ul (Negative); Protein-Dipstick 15 mg/dl (Negative); Urine Bilirubin Dipstick Negative (Negative); Urine Clarity Sl. Cloudy (Clear); Urine Urobilinogen 1 mg/dl (Normal)
[2024-06-30 14:10] LABS: Red Blood Cells-Urine 0-5 SEEN /hpf (0-5); Squamous Epithelial Cells - UA 10-25 SEEN /hpf (5-10); White Blood Cells 5-10 SEEN /hpf (0-5)
[2024-06-30 14:11] LABS: Bacteria RARE /hpf (None Seen); Mucous, Urine 1+ /hpf (<or=2+)
--- NOTE | 2024-06-30 14:17 | ED.VIS.FEGU ---
HPI HPI - Female History of Present Illness Chief Complaint: Complaint Narrative Narrative: 33-year-old female past medical history of frequent UTIs, last being a few months ago presents with dark urine and dysuria that she has had for the last few weeks. She states that she tends to let her symptoms go for a while. She denies any fevers or chills, no nausea or vomiting. She does have low back pain but denies any flank pain. She is concerned that she may have another urinary tract infection. PFSH PFSH Home Medications ?Medication ?Instructions ?Recorded ?Last Taken ?Type clindamycin HCl 300 mg capsule 300 mg PO Q6H #40 CAPSULES 10/21/23 Unknown Rx (Cleocin HCl) naproxen 500 mg tablet 500 mg PO BID #20 tabs 10/21/23 Unknown Rx cephalexin 500 mg capsule 500 mg PO Q6 #40 CAPSULES 11/04/23 Unknown Rx nitrofurantoin 100 mg PO Q12 #10 CAPSULES 03/08/24 Unknown Rx monohydrate/macrocrystals 100 mg capsule ciprofloxacin HCl 500 mg tablet 500 mg PO BID #14 TABLETS 03/17/24 Unknown Rx phenazopyridine 200 mg tablet 200 mg PO TID 6 doses #6 tabs 03/17/24 Unknown Rx (Pyridium) Allergy/AdvReac Type Severity Reaction Status Date / Time azithromycin (From Zithromax) Allergy Itching Verified 06/30/24 12:28 sulfamethoxazole (From Allergy Itching Verified 06/30/24 12:28 Bactrim) trimethoprim (From Bactrim) Allergy Itching Verified 06/30/24 12:28 Surgical History History of bilateral salpingectomy Social History (Updated 06/30/24 @ 12:32 by Heather White) household members: children housing: house Smoking Status: Current every day smoker tobacco type: cigarettes substance use type: does not use ROS ROS ED ROS Narrative Constitutional: No fever, no chills. HEENT: No sore throat. No neck pain. No loss of vision. No rhinorrhea. Cardiovascular: No chest pain. No palpitations. No pedal edema. Respiratory: No cough, no shortness of breath. Abdominal: No abdominal pain. No nausea. No vomiting. Genitourinary: Positive dysuria. Positive dark urine. Musculoskeletal: Low back pain. No flank pain. EXAM Physical Exam Narrative Exam Narrative: Afebrile prior to vital signs noted. Nontoxic-appearing. Cardiovascular examination regular rate and rhythm. Lungs clear to auscultation bilaterally. Abdomen soft nontender with positive bowel sounds. No CVA tenderness to percussion bilaterally. Neurological examination nonfocal and nonlateralizing. Const Vital Signs: 06/30/24 12:26 06/30/24 14:26 06/30/24 14:57 Temperature 98.2 F 98.3 F Temperature Source Oral Pulse Rate 72 69 69 Respiratory Rate 18 16 Blood Pressure 116/58 L 128/36 H 128/36 H Blood Pressure Mean 77 66 66 Pulse Ox 100 99 99 Oxygen Delivery Method Room Air MDM MDM MDM Narrative Medical decision making narrative: Differential diagnosis includes but not limited to cystitis versus dysuria without infection versus pyelonephritis. I have low clinical suspicion for pyelonephritis. She is not febrile here. Additionally, she had bilateral tubal ligation and her abdomen is nontender, but protocol labs were started and UA was sent as well as urine . Review of her urinalysis shows negative ketones, occult blood at 10 with RBC 0-5, within normal limits but 5-10 WBCs. There are 10-25 squamous epithelial cells with rare bacteria and 1+ mucus. With her symptoms ongoing for a few weeks, I do feel this is probably more of a contaminated specimen. Her urine will be sent for culture. I discussed this with the patient and she is agreeable to waiting for antibiotics until urine culture results return. Urine test is negative. I feel she can be discharged and that she does not require observation or admission. Return instructions reviewed. Disposition is discharged home in stable condition. History & Record Review Discussion w/independent historian: Patient Lab Data Attestation: I reviewed the patient's lab results. Labs: Laboratory Results - last 24 hr 06/30/24 12:42 Urine Color Yellow Urine Clarity Sl. Cloudy Urine pH 6.0 Ur Specific [place] 1.020 Urine Protein 15 H Urine Glucose (UA) Normal Urine Ketones Negative Urine Occult Blood 10 H Urine Nitrite Negative Urine Bilirubin Negative Urine Urobilinogen 1 H Ur Leukocyte Esterase 25 H Urine RBC 0-5 SEEN Urine WBC 5-10 SEEN Ur Squamous Epith Cells 10-25 SEEN Urine Bacteria RARE Urine Mucus 1+ Urine Test Negative Discharge Plan Triage Chief Complaint: Complaint ED Provider: Reodica,Victor M Dx/Rx/DC Orders Clinical Impression: Dysuria, UTI symptoms Instructions: ED Dysuria, Uncertain Cause (Adult), ED Symptoms Uncertain Cause Prescriptions: No Action nitrofurantoin monohyd/m-cryst 100 mg capsule 100 mg PO Q12 Qty: 10 0RF clindamycin HCl [Cleocin HCl] 300 mg capsule 300 mg PO Q6H Qty: 40 0RF naproxen 500 mg tablet 500 mg PO BID Qty: 20 0RF cephalexin 500 mg capsule 500 mg PO Q6 Qty: 40 0RF ciprofloxacin HCl 500 mg tablet 500 mg PO BID Qty: 14 0RF phenazopyridine [Pyridium] 200 mg tablet 200 mg PO TID Qty: 6 0RF Stand Alone Forms: ED Work / School Excuse Primary Care Provider: Care Physician,No Primary Referrals: Aminata Hernandez MD [Med Staff - [employer]] - As soon as possible Care Physician,No Primary [Primary Care Provider] - Activity Restrictions/Additional Instructions: Follow-up with your primary care provider. Return with increased pain, fever, new or worsening symptoms. Print Language: Yakut Disposition Disposition: Home, Self Care
[2024-06-30 14:26] VITALS: BP 128/36; PULSE 69; O2SAT 99
[2024-06-30 14:57] VITALS: BP 128/36; PULSE 69; RESP 16; TEMP 36.8; O2SAT 99
[2024-06-30 15:33] LABS: Internal QC Validated? YES +Cl - CLEAR BKGD; Pregnancy, Urine Negative Negative
== END 2024-06-30 15:53 | disposition home or self-care (01) ==
PROVIDERS: Emergency Provider Emergency Medicine; Visit Provider Emergency Medicine
DX: R30.0 Dysuria (principal); R39.89 Other symptoms and signs involving the genitourinary system; F17.210 Nicotine dependence, cigarettes, uncomplicated; Z88.2 Allergy status to sulfonamides; Z88.1 Allergy status to other antibiotic agents; Z87.440 Personal history of urinary (tract) infections
CPT/HCPCS: 81001; 81025; 87077; 87086; 87088; 87186; 99282

== ENCOUNTER 2025-04-21 05:48 | Day surgery (SDC) | payer MEDICAID, SELFPAY ==
--- NOTE | 2025-04-19 10:29 | PCM.HP.BLA ---
History and Physical Date of Admission: 04/21/25 Expand All Collapse All Pre-Op History and Physical HPI: The patient is a 34 year old female presenting for pre-operative visit. She is scheduled for LEEP, for GLORIA 3 on 04/21/25. Procedure discussed along with risks, benefits and complications. Other alternatives discussed for management. Consent form signed? Yes. Past Medical History PAST MEDICAL HISTORY Diagnosis Date ? Abnormal Pap smear of cervix ? HSIL (high grade squamous intraepithelial lesion) on Pap smear of cervix 06/17/2018 ? 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 LIGATE FALLOPIAN TUBE 2019 ? PAST SURGICAL HISTORY OF wIsdom teeth CURRENT MEDICATIONS No current outpatient medications on file. No current facility-administered medications for this visit. ALLERGIES: Azithromycin, Bactrim [Sulfamethoxazole-Trimethoprim], Sulfamethoxazole, and Trimethoprim PERSONAL HISTORY: [Social History] [Social History] Tobacco Use ? Smoking status: Former Types: Cigarettes ? Smokeless tobacco: Never ? Tobacco comments: 4-5 cigarettes per day Vaping Use ? Vaping status: Some Days Substance Use Topics ? Alcohol use: Yes Comment: not while ? Drug use: No FAMILY HISTORY: Family History FAMILY HISTORY Problem Relation Age of Onset ? other (Cervical Cancer at age 45) Mother ? Heart disease Father REVIEW OF SYMPTOMS: negative except as noted above PHYSICAL EXAMINATION: VITALS: Blood pressure 94/58, weight 51.7 kg (114 lb), last menstrual period 03/28/2025. GENERAL: The patient is well nourished, well hydrated in no acute distress. , The patient is oriented to time, place, and person. NECK: Supple. No lynphadenopathy, normal thyroid, no thyromegaly. LUNGS: Clear to auscultation bilaterally. no wheezes, rhonchi or rales HEART: Regular rate and rhythm, Normal heart sounds, and No murmurs or gallops IMPRESSION: 34yo with CIN3 - Cervical Dysplasia PLAN: LEEP Pt has been counseled on risks/benefits and alternatives of surgery including but not limited to anesthesia, bleeding, infection, thermal injury to pelvic structures including bowel, bladder, and vessels. Pt wishes to proceed with surgery at this time. Pre and post op instructions reviewed I have reviewed and updated past medical and surgical history, medications and allergies Ami Albarado MD Office Visit on 04/12/2025 Note shared with patient
[2025-04-21] VITALS (10 sets, daily range): BP systolic 86–97; BP diastolic 52–66; PULSE 52–59; RESP 16–18; TEMP 36.3–37; O2SAT 100; BMI 17.4
--- OUTSIDE RECORDS SUMMARY | 2025-04-21 05:52 | XMS RPT_ITS | CCD ---
Author Organization [facility] ion [facility] Care Team Providers Care Tray Checker Name Role Phone AIYANA SALGUERO MD Admitting Unavailable AIYANA SALGUERO MD Primary Care Unavailable AIYANA SALGUERO MD Attending Unavailable NO, DOCTOR ON Consulting Unavailable SANIYA, DOCTOR ON Consulting Unavailable DONG MEEHAN DO Admitting Unavailable DONG MEEHAN DO Primary Care Unavailable DONG MEEHAN DO Attending Unavailable Unavailable Primary Care Provider Unavailabl e Unavailable Primary Care Provider Unavailabl e Romero, Matt Attending Unavailable Care Physician, No Primary Primary Care Unava ilable Romero, Matt Referring Unavailable Care Physician, No Primary Primary Care Unava ilable Ungur, Remus Attending Unavailable Care Physician, No Primary Primary Care Unava ilable ReVictor M almaguer Attending Unavailable Care Physician, No Primary Primary Care Unava ilable Velasquez Shah Attending Unavailable Care Physician, No Primary Primary Care Unava ilable Velasquez Shah Attending Unavailable ANIYAH BREEN Attending Unavailable CRISTIANA PARSONS Attending Unavailable CRISTIANA PARSONS Referring Unavailable VEDA LEWIS Attending Unavailable ANIYAH BREEN Attending Unavailable WING GUERRERO Attending Unavailable Allergies Allergy Classification Reported Allergen(s) Allergy Type Date of Onset Reaction(s) Facility (1 source) Azithromycin Drug Allergy [facility] Repository (1 source) Sulfamethoxazole / Trimethoprim Drug Allergy [facility] Repository (20 sources) Azithromycin; Translations: [AZITHROMYCIN] Drug Allergy 0 Hives [facility] Work Phone: (20 sources) Sulfamethoxazole / Trimethoprim; Translations: [SULFAMETHOXAZOLE-TR IMETHOPRIM] Drug Allergy 5 [facility] (1 source) Azithromycin Drug Allergy 5 [facility] Repository (2 sources) Sulfamethoxazole; Translations: [SULFAMETHOXAZOLE] Drug Allergy 4 [facility] Repository (2 sources) Trimethoprim; Translations: [TRIMETHOPRIM] Drug Allergy 4 [facility] Repository (3 sources) Sulfamethoxazole Drug Allergy 4 Itching [facility] (3 sources) Trimethoprim Drug Allergy 4 Itching [facility] Medications Current Medications Medication Drug Class(es) Dates Sig (Normalized) Sig (Original) acetaminophen 500 mg oral tablet (1 source) Start: 06-14-2023 End: 06-28-2023 take 1 tablet by mouth every six hours as needed acetaminophen (TYLENOL EXTRA STRENGTH) 500 mg tablet Take 1 tablet by mouth every 6 hours as needed for pain for up to 14 days. 56 tablet 0 06/14/2023 06/28/2023 Active Comment on above: Take 1 tablet by yvonne every 6 hours as needed for pain for up to 14 days. amoxicillin 500 mg oral capsule (1 source) Penicillin-class Antibacterial Start: 06-14-2023 End: 06-24-2023 take 1 capsule by mouth twice daily amoxicillin (AMOXIL) 500 mg capsule Indications: Strep throat Take 1 capsule by mouth two times a day for 10 days. 20 capsule 0 06/14/2023 06/24/2023 Active Comment on above: Take 1 capsule by mo [facility] two times a day for 10 days. benzonatate 100 mg oral capsule (2 sources) Non-narcotic Antitussive Start: 12-09-2024 End: 12-16-2024 take 1 capsule by mouth every eight hours as needed benzonatate (TESSALON PERLE) 100 mg capsule Take 1 capsule by mouth three times a day as needed for cough for up to 7 days. 21 capsule 12/09/2024 12/16/2024 Active fluconazole 150 mg oral tablet (7 sources) Azole Antifungal Start: 02-02-2025 End: 02-02-2025 take 1 tablet by mouth once fluconazole (DIFLUCAN) 150 mg tablet Take 1 tablet by mouth one time only for 1 dose. 1 tablet 02/02/2025 02/02/2025 Active Start: 11-12-2024 End: 11-12-2024 fluconazole (DIFLUCAN) 150 m g tablet Take 1 tablet by mouth one time only for 1 dose. If no Improvement in 72 hours take another dose. 2 tablet 11/12/2024 11/12/2024 Active Start: 02-19-2024 End: 02-19-2024 fluconazole (DIFLUCAN) 150 m g tablet Indications: Vaginal yeast infection Take 1 tablet by mouth one time only for 1 dose. Repeat in 3 days as needed. 2 tablet 02/19/2024 02/19/2024 Active Start: 01-22-2024 End: 01-23-2024 take 1 tablet by mouth once daily fluconazole (DIFLUCAN) 150 mg tablet Take 1 tablet by mouth once daily for 1 day. 1 tablet 01/22/2024 01/23/2024 Start: 09-05-2023 End: 09-06-2023 take 1 tablet by mouth once daily fluconazole (DIFLUCAN) 150 mg tablet Take 1 tablet by mouth once daily for 1 day. 1 tablet 0 09/05/2023 09/06/2023 Active Comment on above: Take 1 tablet by yvonne once daily for 1 day. metroNIDAZOLE 500 mg oral tablet (5 sources) Nitroimidazole Antimicrobial Start: 11-13-19 End: 11-20-19 take 1 tablet by mouth twice daily metroNIDAZOLE (FLAGYL) 500 mg tablet Take 1 tablet by mouth two times a day for 7 days. 14 tablet 11/12/2024 11/19/2024 Active Start: 02-19-2024 End: 02-26-2024 take 1 tablet by mouth twice daily metroNIDAZOLE (FLAGYL) 500 mg tablet Indications: BV (bacterial vaginosis) Take 1 tablet by mouth two times a day for 7 days. 14 tablet 02/19/2024 02/26/2024 Active Start: 01-23-2024 End: 01-30-2024 take 1 tablet by mouth twice daily metroNIDAZOLE (FLAGYL) 500 mg tablet Take 1 tablet by mouth two times a day for 7 days. 14 tablet 01/23/2024 01/30/2024 Active phenazopyridine hydrochloride 200 mg oral tablet (6 sources) Start: 02-02-2025 take 1 tablet by mouth every eight hours as needed phenazopyridine (PYRIDIUM) 200 mg tablet Take 1 tablet by mouth three times a day as needed. 6 tablet 02/02/2025 Active Start: 06-17-2023 End: 01-23-2024 take 1 tablet by mouth every eight hours as needed phenazopyridine (PYRIDIUM) 200 mg tablet Take 1 tablet by mouth three times a day as needed. 6 tablet 06/17/2023 01/23/2024 Discontinued Comment on above: Take 1 tablet by yvonne th three times a day as needed. Completed/Discontinued Medications Medication Drug Class(es) Dates Sig (Normalized) Sig (Original) PNV no.95/ferrous fum/folic ac ( ORAL) (6 sources) End: 01-23-2024 PNV no.95/ferrous fum/folic ac ( ORAL) Take by mouth. 01/23/2024 Discontinued PNV no.95/ferrou s fum/folic ac ( ORAL) Take by mouth. Active PNV no.95/ferrou s fum/folic ac ( ORAL) Take by mouth. 0 Active Comment on above: Take by mouth. Problems Active Problems Problem Classification Problem Date Documented Date Episodic/Chronic Contraceptive and procreative management (17 sources) Patient encounter status; Translations: [Encounter for sterilization] Onset: 07-28-2015 Resolved: 06-17-2018 05-14-2021 Episodic Genitourinary symptoms and ill-defined conditions (6 sources) Scalding pain on urination ; Translations: [Dysuria] Onset: 07-15-2024 09-04-2023 Episodic Immunizations and screening for infectious disease (2 sources) Encounter for screening for human papillomavirus (HPV); Translations: [Encounter for screening for infections with a predominantly sexual mode of transmission] Onset: 02-02-2025 Episodic Inflammatory diseases of female pelvic organs (2 sources) Bacterial vaginosis; Translations: [Acute vaginitis] 02-19-2024 Episodic Mycoses (2 sources) Candidiasis of vagina; Translations: [Vaginal yeast infection] 02-19-2024 Episodic Other female genital disorders (1 source) Vaginal discharge; Translations: [Other specified noninflammatory disorders of vagina] 01-22-2024 Episodic Other female genital disorders (1 source) Pruritus of vagina; Translations: [Other specified noninflammatory disorders of vagina] 11-11-2024 Episodic Other female genital disorders (2 sources) Other specified noninflammatory disorders of vagina; Translations: [Vaginal discharge] Onset: 11-11-2024 Episodic Other nutritional; endocrine; and metabolic disorders (1 source) Abnormal weight loss; Translations: [Losing weight] Onset: 02-21-2025 Episodic Other nutritional; endocrine; and metabolic disorders (1 source) Body mass index (BMI) 19.9 or less, adult; Translations: [Body mass index (BMI) less than 16.5] Onset: 02-21-2025 Episodic Other screening for suspected conditions (not mental disorders or infectious disease) (1 source) Encounter for screening for malignant neoplasm of cervix; Translations: [Screening for cervical cancer] Onset: 02-21-2025 Episodic Other upper respiratory infections (1 source) Acute upper respiratory infection; Translations: [Acute upper respiratory infection, unspecified] 01-22-2024 Episodic Unclassified (1 source) Derm Problem Onset: 09-08-2024 Viral infection (4 sources) Viral disease; Translations: [Viral infection, unspecified] Onset: 12-09-2024 03-31-2024 Episodic Past or Other Problems Problem Classification Problem Date Documented Date Episodic/Chronic Cancer of cervix (20 sources) High grade squamous intraepithelial lesion on cervical Papanicolaou smear; Translations: [High grade squamous intraepithelial lesion on cytologic smear of cervix (HGSIL)] Onset: 03-27-2015 Resolved: 06-17-2018 06-17-2018 Episodic Disorders of teeth and jaw (1 source) Other specified disorders of teeth and supporting structures; Translations: [Other specified disorders of teeth and supporting structures] Onset: 10-30-2023 Episodic Other complications of (19 sources) Maternal tobacco use; Translations: [Smoking (tobacco) complicating , second trimester] Onset: 03-13-2015 08-10-2019 Episodic Other complications of (19 sources) History of fourth degree perineal laceration; Translations: [Supervision of with other poor reproductive or obstetric history, second trimester] Onset: 05-24-2015 07-13-2019 Episodic Other complications of (15 sources) Venereal disease in mother complicating , childbirth AND/OR puerperium; Translations: [Other infections with a predominantly sexual mode of transmission complicating , unspecified trimester] Onset: 03-13-2015 Resolved: 06-09-2018 05-14-2021 Episodic Other complications of (15 sources) High risk ; Translations: [Supervision of other high risk pregnancies, second trimester] Onset: 03-13-2015 Resolved: 10-31-2015 10-31-2015 Episodic Residual codes; unclassified (19 sources) Past history of small for gestational age baby; Translations: [Personal history of other complications of , childbirth and the puerperium] Onset: 07-13-2019 07-13-2019 Episodic Sexually transmitted infections (not HIV or hepatitis) (19 sources) Human papillomavirus deoxyribonucleic acid test positive, high risk on cervical specimen; Translations: [Cervical high risk human papillomavirus (HPV) DNA test positive] Onset: 03-27-2015 03-27-2015 Episodic Short gestation; low weight; and growth retardation (19 sources) Gaycu-yqw-pdwve baby; Translations: [ small for gestational age, unspecified weight] Onset: 11-26-2019 11-26-2019 Episodic Results Test Name Value Interpretation Reference Range Facility [facility] ([id number]) 1990 F Date Time Provider Department 02/22/25 CRISTIANA PARSONS During your visit today, we recorded the following information about you: Patricia Forbes RN 02/22/2025 11:20 AM Signed Patient calling regarding lab results from yesterday's appointment. Reviewed positive BV result. She is questioning blood work results too if anything further needs done. She is aware CP is back in the office tomorrow and will review then. She declined wanting antibiotic today for BV, wants to wait for CP to return. YENI Christina Trisha, RN 02/22/2025 3:49 PM Signed RM reviewed +BV and antibiotic sent. Patient notified. Aware CP returns tomorrow to review blood work results and recommendations. YENI Christina Trisha, RN 02/23/2025 10:27 AM Signed CP reviewed blood work results and sent patient mychart message under 02/22/25 results follow-up encounter. Patricia Forbes RN Allergies As of Date: 02/22/2025 Noted Allergy Reaction AZITHROMYCIN 07/13/2019 4 - Hives BACTRIM (SULFAMETHOXAZOLE-TRIME TH*03/13/2015 9 - Itching SULFAMETHOXAZOLE 11/04/2023 9 - Itching TRIMETHOPRIM 11/04/2023 9 - Itching Date Reviewed: 02/21/2025 Reviewed by: Kim Manzanares LPN - Fully Assessed Reason for Visit: Results [95] Prescriptions as of 02/23/2025 - metroNIDAZOLE (FLAGYL) 500 mg tablet Take 1 tablet by mouth two times a day for 7 days. Problem List As Of Date 02/22/2025 Noted Resolved Genital warts complicating [O98.319, *03/13/2015 06/09/2018 Supervision of other high risk pregnancies, sec*03/13/2015 10/31/2015 Maternal tobacco use in second trimester (HCC) *03/13/2015 02/21/2025 Pap smear of cervix with ASCUS, cannot exclude *03/27/2015 06/17/2018 Cervical high risk HPV (human papillomavirus) t*03/27/2015 Encounter for sterilization [Z30.2] 07/28/2015 06/17/2018 HSIL (high grade squamous intraepithelial lesio*06/17/2018 02/21/2025 History of prior with SGA [Z8*07/13/2019 02/21/2025 SGA (small for gestational age) [P05.10] 11/26/2019 Body mass index (BMI) less than 16.5 [Z68.1] 02/21/2025 Losing weight [R63.4] 02/21/2025 Encounter Status:Closed by PATRICIA FORBES on 02/23/25 Normal [facility] BACTERIAL VAGINOSIS NAATon 1 0 Lactobacillus crispatus+gasseri+j ensenii + Gardnerella vaginalis + Atopobium vaginae rRNA YAIR+probe Ql (Vag fld) Detected Abnormal Not detected [facility] Comment on above: Order Comment: Speci men Type: SWABOrdering Facility: [facility] Address: [address] [place] [address] Performed By: #### B VAMP, 56236-1 ####[facility] LABCLIA [id number] [place] [address] [place] C. trachomatis+N. gonorrhoea e DNA YAIR+probe Ql (Unsp spec)on 02-21-2025 C. trachomatis rRNA YAIR+probe Ql (Unsp spec) Not detected Normal Not detected [facility] Comment on above: Order Comment: Speci men Type: SWABOrdering Facility: [facility] Address: [address] [place] [address] Performed By: #### B VAMP, 84896-2 ####[facility] LABCLIA [id number] [address] [place] N. gonorrhoeae rRNA YAIR+probe Ql (Unsp spec) Not detected Normal Not detected [facility] Comment on above: Order Comment: Speci men Type: SWABOrdering Facility: [facility] Address: [address] [place] [address] Performed By: #### B VAMP, 27411-3 ####[facility] LABCLIA [id number] [place] [address] [place] SANTOS/TRICHOMONAS NAATon 1 C. glabrata RNA YAIR+probe Ql (Vag fld) Not detected Normal Not detected [facility] Comment on above: Order Comment: Speci men Type: SWABOrdering Facility: [facility] Address: [address] [place] [address] Performed By: #### C VTV ####[facility] LABCLIA [id number] [place] [address] [place] Santos sp DNA YAIR+probe Ql (Vag fld) Not detected Normal Not detected [facility] Comment on above: Order Comment: Speci men Type: SWABOrdering Facility: [facility] Address: [address] [place] [address] Result Comment: The Santos species group target includes C. albicans, C. tropicalis, C. parapsilosis, and C. dubliniensis. Performed By: #### C VTV ####[facility] LABCLIA [id number] [address] T. vaginalis DNA YAIR+probe Ql (Unsp spec) Not detected Normal Not detected [facility] Comment on above: Order Comment: Speci men Type: SWABOrdering Facility: [facility] Address: [address] [place] [address] Performed By: #### C VTV ####[facility] LABIA [id number] [place] [address] [place] CBC W Auto Differential pane l (Bld)on 02-21-2025 Basophils (Bld) [#/Vol] 0.04 10*3/uL Normal <0.11 [facility] Comment on above: Order Comment: Speci men Type: BLOOD SPECIMENOrdering Facility: [facility] Address: [address] [place] [address] Performed By: #### 5 7021-8 ####[facility] CENTERHOLLYA [id number] [address] STATES OF [facility] Basophils/100 WBC (Bld) 0.5 % Normal [facility] Comment on above: Order Comment: Speci men Type: BLOOD SPECIMENOrdering Facility: [facility] Address: [address] [place] [address] Performed By: #### 5 7021-8 ####[facility]ENTERNCHENRIA [id number] [address] STATES [facility] Differential cell count method Nom (Bld) Auto Normal [facility] Comment on above: Order Comment: Speci men Type: BLOOD SPECIMENOrdering Facility: [facility] Address: [address] [place] [address] Performed By: #### 5 7021-8 ####[facility]ENTERHOLLYA [id number] [place] [address] [place] Eosinophils (Bld) [#/Vol] 0.19 10*3/uL Normal <0.46 [facility] Comment on above: Order Comment: Speci men Type: BLOOD SPECIMENOrdering Facility: [facility] Address: [address] [place] [address] Performed By: #### 5 7021-8 ####[facility] RIVERSIDEA [id number] [place] [address] [place] Eosinophils/100 WBC (Bld) 2.3 % Normal [facility] Comment on above: Order Comment: Speci men Type: BLOOD SPECIMENOrdering Facility: [facility] Address: [address] [place] [address] Performed By: #### 5 7021-8 ####[facility] [id number] [place] [address] [place] Erythrocyte distribution width (RBC) [Ratio] 13.2 % Normal 11.5-15.0 [facility] Comment on above: Order Comment: Speci men Type: BLOOD SPECIMENOrdering Facility: [facility] Address: [address] [place] [address] Performed By: #### 5 7021-8 ####[facility] [id number] [place] [address] [place] Hematocrit (Bld) [Volume fraction] 38.7 % Normal 36.0-46.0 [facility] Comment on above: Order Comment: Speci men Type: BLOOD SPECIMENOrdering Facility: [facility] Address: [address] [place] [address] Performed By: #### 5 7021-8 ####[facility] [id number] [place] [address] [place] Hemoglobin (Bld) [Mass/Vol] 13.0 g/dL Normal 11.5-15.5 [facility] Comment on above: Order Comment: Speci men Type: BLOOD SPECIMENOrdering Facility: [facility] Address: [address] [place] [address] Performed By: #### 5 7021-8 ####[facility] [id number] [place] [address] [place] Immature granulocytes (Bld) [#/Vol] 0.03 10*3/uL Normal <0.10 [facility] Comment on above: Order Comment: Speci men Type: BLOOD SPECIMENOrdering Facility: [facility] Address: [address] [place] [address] Performed By: #### 5 7021-8 ####[facility] [id number] [place] [address] [place] Immature granulocytes/100 WBC (Bld) 0.4 % Normal [facility] Comment on above: Order Comment: Speci men Type: BLOOD SPECIMENOrdering Facility: [facility] Address: [address] [place] [address] Performed By: #### 5 7021-8 ####[facility] [id number] [place] [address] [place] Lymphocytes (Bld) [#/Vol] 2.54 10*3/uL Normal 1.00-4.00 [facility] Comment on above: Order Comment: Speci men Type: BLOOD SPECIMENOrdering Facility: [facility] Address: [address] [place], [place] [address] Performed By: #### 5 7021-8 ####[facility] [id number] [place] [address] [place] Lymphocytes/100 WBC (Bld) 31.4 % Normal [facility] Comment on above: Order Comment: Speci men Type: BLOOD SPECIMENOrdering Facility: [facility] Address: [address] [place] [address] Performed By: #### 5 7021-8 ####[facility] AIDAMARY CARMENLIA [id number] [address] [place] [facility] MCH (RBC) [Entitic mass] 30.7 pg Normal 26.0-34.0 [facility] Comment on above: Order Comment: Speci men Type: BLOOD SPECIMENOrdering Facility: [facility] Address: [address] [place] [address] Performed By: #### 5 7021-8 ####[facility] [id number] [place] [address] [place] MCHC (RBC) [Mass/Vol] 33.6 g/dL Normal 30.5-36.0 [facility] Comment on above: Order Comment: Speci men Type: BLOOD SPECIMENOrdering Facility: [facility] Address: [address] [place] [address] Performed By: #### 5 7021-8 ####[facility] [id number] [place] [address] [place] MCV (RBC) [Entitic vol] 91.3 fL Normal 80.0-100.0 [facility] Comment on above: Order Comment: Speci men Type: BLOOD SPECIMENOrdering Facility: [facility] Address: [address] [place] [address] Performed By: #### 5 7021-8 ####[facility] CENTERORLANDOLIA [id number] [place] [address] [place] Monocytes (Bld) [#/Vol] 0.59 10*3/uL Normal <0.87 [facility] Comment on above: Order Comment: Speci men Type: BLOOD SPECIMENOrdering Facility: [facility] Address: [address] [place] [address] Performed By: #### 5 7021-8 ####[facility]ENTERORLANDOOR[facility] [id number] [place] [address] [place] Monocytes/100 WBC (Bld) 7.3 % Normal [facility] Comment on above: Order Comment: Speci men Type: BLOOD SPECIMENOrdering Facility: [facility] Address: [address] [place] [address] Performed By: #### 5 7021-8 ####[facility] [id number] [place] [address] [place] Neutrophils (Bld) [#/Vol] 4.70 10*3/uL Normal 1.45-7.50 [facility] Comment on above: Order Comment: Speci men Type: BLOOD SPECIMENOrdering Facility: [facility] Address: [address] [place] [address] Performed By: #### 5 7021-8 ####[facility] [id number] [place] [address] [place] Neutrophils/100 WBC (Bld) 58.1 % Normal [facility] Comment on above: Order Comment: Speci men Type: BLOOD SPECIMENOrdering Facility: [facility] Address: [address] [place] [address] Performed By: #### 5 7021-8 ####[facility] [id number] [place] [address] [place] Nucleated RBC (Bld) [#/Vol] 10*3/uL Normal <0.01 [facility] Comment on above: Order Comment: Speci men Type: BLOOD SPECIMENOrdering Facility: [facility] Address: [address] [place] [address] Performed By: #### 5 7021-8 ####[facility] [id number] [place] [address] [place] Nucleated RBC/100 WBC (Bld) [Ratio] 0.0 /100 WBC Normal [facility] Comment on above: Order Comment: Speci men Type: BLOOD SPECIMENOrdering Facility: [facility] Address: [address] [place] [address] Performed By: #### 5 7021-8 ####[facility] AIDANEW HOLLANDNCFRANCIS [id number] [place] [address] [place] Platelet mean volume (Bld) [Entitic vol] 9.8 fL Normal 9.0-12.7 [facility] Comment on above: Order Comment: Speci men Type: BLOOD SPECIMENOrdering Facility: [facility] Address: [address] [place] [address] Performed By: #### 5 7021-8 ####[facility] [id number] [place] [address] [place] Platelets (Bld) [#/Vol] 195 10*3/uL Normal 150-400 [facility] Comment on above: Order Comment: Speci men Type: BLOOD SPECIMENOrdering Facility: [facility] Address: [address] [place] [address] Performed By: #### 5 7021-8 ####[facility] CENTERNCA [id number] [place] [address] [place] RBC (Bld) [#/Vol] 4.24 10*6/uL Normal 3.90-5.20 [facility] Comment on above: Order Comment: Speci men Type: BLOOD SPECIMENOrdering Facility: THE [facility] Address: [address] [place] [address] Performed By: #### 5 7021-8 ####[facility] [id number] [place] [address] [place] WBC (Bld) [#/Vol] 8.09 10*3/uL Normal 3.70-11.00 [facility] Comment on above: Order Comment: Speci men Type: BLOOD SPECIMENOrdering Facility: [facility] Address: [address] [place] [address] Performed By: #### 5 7021-8 ####[facility] DEMARCO BROWN [id number] [place], [place] [id number] [place] [address] [place] CNOVon 02-21-2025 CNOV Office Visit (OBGYWM ) BECKY HILL ([id number]) 1990 F Date Time Provider Department 02/21/25 2:00 PM CRISTIANA PARSONS OBGYWM During your visit today, we recorded the following information about you: Blood pressure Weight Height Last Period 110/62 49.4 kg 1.727 m 02/08/25 Cristiana Parsons APRN.CNM 02/21/2025 2:49 PM Signed Becky is a 34 year old who presents for an annual gynecologic exam with complaints, vaginal discharge. C/O losing weight and inability to gain weight over the past couple of years. Requesting lab work. No PCP. Still get period: Yes LMP: 02/08/2025 Menses: cycles IRREGULAR and 5 TO 6 days of flow Menstrual flow: Heavy Bleeding amount bothersome: Yes Bleeding between periods: Yes Period symptoms: Breast tenderness, Cramps, and Mood change Sexually active: Yes Contraception: Tubal Ligation Contraception frequency: Always HPV vaccine: No HPV:positive Last pap smear: 07/13/2019 History of abnormal pap: Yes- has not been here since 2019- Colposcopy: No. Leep: No. Cone biopsy: No. Bothersome pelvic pain: No Last mammogram: never OB History Gravida4 Para3 Term3 Preterm0 AB1 Living3 SAB0 IAB1 Ectopic0 Multiple0 Live Births3 Comment: Fourth degree laceration w/ first delivery. Forceps delivery after 3 pop offs w/ vacuum. Steffany Ruano MD Magazine Journalist History LMP: 12/09/2024 (Exact Date), Having periods Age at Menarche: Age at First : Age at Menopause: Magazine Journalist History Comments: Sexual Activity: Yes; Male Contraception: Condom PAST MEDICAL HISTORY Diagnosis Date Abnormal Pap smear of cervix PAST SURGICAL HISTORY Procedure Laterality Date PAST SURGICAL HISTORY OF wosdom teeth FAMILY HISTORY Problem Relation Age of Onset Cancer Mother 45 SOCIAL HISTORY Social History Tobacco Use Smoking status: Every Day Smokeless tobacco: Never Tobacco comments: 4-5 cigarettes per day Vaping Use Vaping status: Never Used Substance Use Topics Alcohol use: Yes Comment: not while Drug use: No REVIEW OF SYSTEMS Abdomen: No abdominal pain, nausea, vomiting, diarrhea, or constipation. No bloating, early satiety, indigestion, or increased flatulence. Bladder: No dysuria, gross hematuria, urinary frequency, urinary urgency, or incontinence. Breast: No breast lumps, nipple d/c, overlying skin changes, redness or skin retraction and positive for nipple sensitivity. Allergies and current medication updated:Yes SENSITIVE EXAM: The sensitive examination was discussed with the Patient or Patient's Authorized Cloth Inspector. As applicable, any other physician, advance practice provider, medical student, or other health professional student that will be observing or involved in the sensitive examination for educational or training purposes was discussed with the Patient or Authorized Cloth Inspector. The Patient or Authorized Cloth Inspector has agreed to proceed with the sensitive examination. (Sensitive examination includes inspection and/or palpation of the breasts, pelvis, prostate and anorectal regions). EXAM: BP 110/62 Ht 5' 8 (1.73m) Wt 109 lb (49.4kg) LMP 02/08/2025 BMI 16.58 kg/(m2). GENERAL: pleasant, female in no apparent distress HEENT: Normocephalic NECK: Supple and full range of motion DERMATOLOGY: Normal and without lesions BREAST: soft, symmetric, no dominant mass, normal nipple-areolar complex, no lymphadenopathy, no nipple discharge, and fibrocystic changes CHEST: Normal inspiratory effort ABDOMEN: soft, non-tender, and no masses PELVIC: external genitalia normal, normal Bartholin's glands, urethra, [place]'s glands, no vulvar lesions, no cervical lesions, good vaginal support, physiologic discharge present, normal appearing perineal body and perianal region BIMANUAL: uterus normal size, shape and consistency, no adnexal masses, non-tender, and no cervical motion tenderness RECTOVAGINAL: deferred. NEURO: alert and oriented x3,exam grossly non-focal EXTREMITIES: normal ASSESSMENT/PLAN: 1) Health maintenance: Pap done with HPV. 2) Contraception: tubal sterilization. Contraceptive options reviewed and information provided. 3) STD screening: Accepted STI check for Gonorrhea and Chlamydia. 4) CBC- TSH- encouraged finding PCP and establishing care 5) Reports mother of cervical cancer in 40's - stressed importance of PAP/screenings Will notify patient of results Follow up one year or sooner as needed Cristiana Parsons APRN.CNM Allergies As of Date: 02/21/2025 Noted Allergy Reaction AZITHROMYCIN 07/13/2019 4 - Hives BACTRIM (SULFAMETHOXAZOLE-TRIME TH*03/13/2015 9 - Itching SULFAMETHOXAZOLE 11/04/2023 9 - Itching TRIMETHOPRIM 11/04/2023 9 - Itching Date Reviewed: 02/21/2025 Reviewed by: Kim Manzanares LPN - Fully Assessed Reason for Visit: Well Woman [146 (more content not included)... Normal [facility] HIGH RISK HUMAN PAPILLOMA MARCELL (HPV), PCR FOR DETECTION AND GENOTYPINGon 02-21-2025 HPV 16 Ag Ql (Unsp spec) Detected Abnormal Not detected [facility] Comment on above: Order Comment: Speci men Type: FLUID SPECIMENOrdering Facility: [facility] Address: [address] [place] [address] Performed By: #### H PVHRT ####[facility] [id number] [place] [address] [place] HPV 18 Ag Ql (Unsp spec) Not detected Normal Not detected [facility] Comment on above: Order Comment: Speci men Type: FLUID SPECIMENOrdering Facility: [facility] Address: [address] [place] [address] Performed By: #### H PVHRT ####[facility] LABCLIA [id number] [place] [address] [place] HPV 31+33+35+39+45+51+5 2+56+58+59+66+68 DNA YAIR+probe Ql (Cvx) Detected Abnormal Not detected [facility] Comment on above: Order Comment: Speci men Type: FLUID SPECIMENOrdering Facility: [facility] Address: [address] [place] [address] Result Comment: High Risk HPV Other Type includes HPV types 31, 33, 35, 39, 45, 51, 52, 56, 58, 59, 66 and 68. Performed By: #### H PVHRT ####[facility] LABCL[facility] [id number] [place] [address] [place] PAP TESTon 02-21-2025 ADEQUACY Normal [facility] Comment on above: Order Comment: Speci men Type: FLUID SPECIMENOrdering Facility: [facility] Address: [address] [place] [address] Result Comment: Sati sfactory for interpretation. Transformation zone present Performed By: #### L [id number] ####[facility] LABCLIA [id number] [address] LABORATORYCLIA [id number] [employer] [address] [place] CASE REPORT Normal [facility] Comment on above: Order Comment: Speci men Type: FLUID SPECIMENOrdering Facility: [facility] Address: [address] [place] [address] Result Comment: Gyne cologic Cytology Report Case: [id number] Authorizing Provider: Cristiana Parsons APRN.CNM Collected: 02/21/2025 02:49 PM Ordering Location: OB/Gynecology Received: 02/21/2025 04:38 PM First Screen: Nicky Rivas CT, ASCP Pathologist: Cherry Rangel MD Specimen: Pap Test, ThinPrep, Cervix Performed By: #### L [id number] ####[facility] LABCLIA [id number] [place] [id number] [facility]ORYCLIA [id number] [place] [address], [address] [place] [address] [place] CLINICAL HISTORY, CYTOLOGY, DENTOFACIAL ORTHOPEDICS DENTIST Routine Exam Normal [facility] Comment on above: Order Comment: Speci men Type: FLUID SPECIMENOrdering Facility: [facility] Address: [address] [place] [address] Performed By: #### L [id number] ####[facility] LABCLIA [id number] [place] [id number] [facility]ORATORYCLIA [id number] [place] [address], [address] [place], [place] [id number] [place] FINAL PERFORMING LAB Normal [facility] Comment on above: Order Comment: Speci men Type: FLUID SPECIMENOrdering Facility: [facility] Address: [address] [place] [address] Result Comment: Tech nical component, surgical elastic knitter hand frame screening performed at: [facility], [address] [place] [address], [address] [place] [address] CLIA: [id number] Diagnostic interpretation performed at: [facility], [address] [place] [address], [facility] [place] [address] CLIA# [id number] Part Maker: Srinivas Andrade MD Performed By: #### L [id number] ####[facility] LABCLIA [id number] [place] [id number] [facility]ORYCLIA [id number] [place] [address], [address] [place], [place] [id number] [place] INTERPRETATION, CYTOLOGY, DENTOFACIAL ORTHOPEDICS DENTIST Abnormal [facility] Comment on above: Order Comment: Speci men Type: FLUID SPECIMENOrdering Facility: [facility] Address: [address] [place] [address] Result Comment: High grade squamous intraepithelial lesion (HSIL). at 1514 EDT Performed By: #### L [id number] ####[facility] LABCLIA [id number] [address] [place] [address] [facility]ORATORYCLIA [id number] [address] [address] [place] LMP 02/08/2025 Normal [facility] Comment on above: Order Comment: Speci men Type: FLUID SPECIMENOrdering Facility: [facility] Address: [address] [place] [address] Performed By: #### L [id number] ####[facility] LABCLIA [id number] [address] [address] [facility]ORATORYCLIA [id number] [address] [address] [place] PAP DISCLAIMER COMMENT The Pap Smear is a screening test for cervical cancer. False negative results occur with all screening tests, emphasizing the need for rescreening at recommended intervals, and clinical correlation. Normal [facility] Comment on above: Order Comment: Speci men Type: FLUID SPECIMENOrdering Facility: [facility] Address: [address] [place] [address] Performed By: #### L [id number] ####[facility] LABCLIA [id number] [place] [address] [facility] LABORATORYCLIA [id number] [address] [address] [place] PAP GENERAL CATEGORIZATION Epithelial Cell Abnormality Normal [facility] Comment on above: Order Comment: Speci men Type: FLUID SPECIMENOrdering Facility: [facility] Address: [address] [place], [place] [address] Performed By: #### L [id number] ####[facility] LABCLIA [id number] [address] [place] [address] [facility] LABORATORYCLIA [id number] [place] [address], [address] [place] [address], [place] [address] [place] PAP TECHNOLOGY CONSULTANT COMMENT This specimen has be en analyzed by the FDA-approved [employer] Digital [employer]TM System, which uses digital imaging and an enhanced artificial intelligence image analysis algorithm to identify sahu of interest on the microscopic slide, to assist the ultrasound technologist sonographer and pathologist in evaluating cells on ThinPrep Pap tests. Following analysis, sahu of interest on the microscopic slide selected by the algorithm are reviewed by a ultrasound technologist sonographer. If a sample requires hierarchical review, the pathologist will review the same sahu of interest selected by the algorithm prior to final interpretation. Normal [facility] Comment on above: Order Comment: Speci men Type: FLUID SPECIMENOrdering Facility: [facility] Address: [address] [place] [address] Performed By: #### L [id number] ####[facility] LABCLIA [id number] [place] [address] [place] [facility] LABORATORYCLIA [id number] [address] [place] TSH SerPl-aCncon 02-21-2025 TSH Qn 2.590 m[IU]/L Normal 0.270-4.200 [facility] Comment on above: Order Comment: Speci paris Type: BLOOD SPECIMENOrdering Facility: [facility] Address: [address] [place] [address] Result Comment: If t he patient is , TSH reference range varies by gestational period: First Trimester (weeks 9-12): 0.180-2.990 mIU/L Second Trimester: 0.110-3.980 mIU/L Third Trimester: 0.480-4.710 mIU/L Dany Hickman et al. A Practical Approach for the Verifications and Determination of Site- and Trimester-Specific Reference Intervals for Thyroid Function tests in . Thyroid, 2019:29:3:412-420. Gregory E, et al. 2017 Guidelines of the [place] Thyroid Association for the Diagnosis and Management of Thyroid Disease during and the . Thyroid, 2017:27:3:315-389. Performed By: #### 3 016-3 ####[facility] LABCLIA [id number] [place] [id number] [place] BACTERIAL VAGINOSIS NAATon 0 02-02-2025 Interpretation and review of laboratory results Abnormal [facility] Lactobacillus crispatus+gasseri+j ensenii + Gardnerella vaginalis + Atopobium vaginae rRNA YAIR+probe Ql (Vag fld) Detected Abnormal Not detected [facility] Lactobacillus crispatus+gasseri+j ensenii + Gardnerella vaginalis + Atopobium vaginae rRNA YAIR+probe Ql (Vag fld) Detected Abnormal Not detected [facility] Comment on above: Order Comment: Speci men Type: SWABOrdering Facility: [facility] Address: [address] [place] [address] Performed By: #### B VAMP, 24714-9 ####[facility] LABCLIA [id number] [place] [address] [place] Bacteria Ur Culton Bacteria identified Cx Nom (U) ORGANISM ID: 1 <10,000 CFU/ml Normal urogenital kash Normal [facility] Comment on above: Performed By: #### 6 30-4 ####[facility] LABCLIA [id number] [place] [address] [place] C. trachomatis+N. gonorrhoea e DNA YAIR+probe Ql (Unsp spec)on 02-02-2025 C. trachomatis rRNA YAIR+probe Ql (Unsp spec) Not detected Normal Not detected [facility] Comment on above: Order Comment: Speci men Type: SWABOrdering Facility: [facility] Address: [address] [place] [address] Performed By: #### B VAMP, 68589-3 ####[facility] LABCLIA [id number] [place] [address] [place] N. gonorrhoeae rRNA YAIR+probe Ql (Unsp spec) Not detected Normal Not detected [facility] Comment on above: Order Comment: Speci men Type: SWABOrdering Facility: [facility] Address: [address] [place] [address] Performed By: #### B VAMP, 12159-5 ####[facility] LABCLIA [id number] [place] [address] [place] SANTOS/TRICHOMONAS NAATon 0 02-02-2025 C. glabrata RNA YAIR+probe Ql (Vag fld) Detected Abnormal Not detected [facility] Santos sp DNA YAIR+probe Ql (Vag fld) Not detected Not detected [facility] Comment on above: The Santos species group target includes C. albicans, C. tropicalis, C. parapsilosis, and C. dubliniensis. Interpretation and review of laboratory results Abnormal [facility] T. vaginalis DNA YAIR+probe Ql (Unsp spec) Not detected Not detected [facility] C. glabrata RNA YAIR+probe Ql (Vag fld) Detected Abnormal Not detected [facility] Comment on above: Order Comment: Speci men Type: SWABOrdering Facility: [facility] Address: [address] [place] [address] Performed By: #### C VTV ####[facility] LABIA [id number] [address] [place] Santos sp DNA YAIR+probe Ql (Vag fld) Not detected Normal Not detected [facility] Comment on above: Order Comment: Speci men Type: SWABOrdering Facility: [facility] Address: [address] [place] [address] Result Comment: The Santos species group target includes C. albicans, C. tropicalis, C. parapsilosis, and C. dubliniensis. Performed By: #### C VTV ####[facility] LABCLIA [id number] [place] [address] [place] T. vaginalis DNA YAIR+probe Ql (Unsp spec) Not detected Normal Not detected [facility] Comment on above: Order Comment: Speci men Type: SWABOrdering Facility: [facility] Address: [address] [place] [address] Performed By: #### C VTV ####[facility] LABCLIA [id number] [place] [address] [place] CNOVon 02-02-2025 CNOV Office Visit (WOUCA) BECKY HILL ([id number]) 1990 F Date Time Provider Department 02/02/25 11:45 AM ANIYAH BREEN During your visit today, we recorded the following information about you: Temperature Pulse Respiration Blood pressure 97.3 degrees 62/minute 18/minute 102/72 Weight 50.3 kg Aniyah Breen APRN.[facility] 02/02/2025 12:33 PM Signed [facility] Subjective Becky Pruitt Van is a 34 year old female. Patient presents with: burning with urination: Burning with urination and some itching x 2 days HPI The patient is a 34-year-old female presenting with dysuria. Dysuria: - Onset a few days ago, with increased intensity this morning. - Describes burning sensation during urination. - Denies urinary frequency, urgency, vaginal discharge, or bleeding. - Currently on the last day of menstruation. - Denies nausea or emesis. - Sexually active; denies concerns for STIs. - History of similar symptoms; reports frequent consumption of coffee and soda. - Requests Pyridium for symptom relief. PAST MEDICAL HISTORY Diagnosis Date Abnormal Pap smear of cervix PAST SURGICAL HISTORY Procedure Laterality Date PAST SURGICAL HISTORY OF wosdom teeth ALLERGIES Azithromycin, Bactrim [Sulfamethoxazole-Trime thoprim], Sulfamethoxazole, and Trimethoprim MEDICATIONS fluconazole (DIFLUCAN) 150 mg tablet Take 1 tablet by mouth one time only for 1 dose. phenazopyridine (PYRIDIUM) 200 mg tablet Take 1 tablet by mouth three times a day as needed. FAMILY HISTORY Problem Relation Age of Onset Cancer Mother 45 SOCIAL HISTORY[1] Review of Systems Gastrointestinal: (-) nausea, (-) vomiting Genitourinary: (+) dysuria, (-) urinary frequency, (-) vaginal discharge, (-) vaginal bleeding Objective BP 102/72 Pulse 62 Temp 36.3 ?C (97.3 ?F) (Tympanic) Resp 18 Wt 50.3 kg (110 lb 14.3 oz) LMP 12/09/2024 (Exact Date) SpO2 99% BMI 16.62 kg/m? Physical Exam Vitals and nursing note reviewed. Constitutional: General: She is not in acute distress. Appearance: Normal appearance. She is normal weight. She is not ill-appearing, toxic-appearing or diaphoretic. HENT: Head: Normocephalic and atraumatic. Right Ear: Ear canal and external ear normal. Left Ear: Ear canal and external ear normal. Nose: Nose normal. No congestion or rhinorrhea. Mouth/Throat: Mouth: Mucous membranes are moist. Pharynx: No oropharyngeal exudate or posterior oropharyngeal erythema. Eyes: General: Right eye: No discharge. Left eye: No discharge. Extraocular Movements: Extraocular movements intact. Conjunctiva/sclera: Conjunctivae normal. Pupils: Pupils are equal, round, and reactive to light. Cardiovascular: Rate and Rhythm: Normal rate and regular rhythm. Pulses: Normal pulses. Heart sounds: Normal heart sounds. No murmur heard. No friction rub. Pulmonary: Effort: Pulmonary effort is normal. No respiratory distress. Breath sounds: Normal breath sounds. No stridor. No wheezing, rhonchi or rales. Chest: Chest wall: No tenderness. Abdominal: General: Abdomen is flat. There is no distension. Palpations: Abdomen is soft. There is no mass. Tenderness: There is no abdominal tenderness. There is no right CVA tenderness, left CVA tenderness, guarding or rebound. Hernia: No hernia is present. Genitourinary: Comments: Deferred Musculoskeletal: General: No swelling, tenderness, deformity or signs of injury. Normal range of motion. Cervical back: Normal range of motion and neck supple. No rigidity. Right lower leg: No edema. Left lower leg: No edema. Lymphadenopathy: Cervical: No cervical adenopathy. Skin: General: Skin is warm and dry. Capillary Refill: Capillary refill takes less than 2 seconds. Coloration: Skin is not jaundiced or pale. Findings: No bruising, erythema, lesion or rash. Neurological: General: No focal deficit present. Mental Status: She is alert and oriented to person, place, and time. Cranial Nerves: No cranial nerve deficit. Sensory: No sensory deficit. Motor: No weakness. Coordination: Coordination normal. Gait: Gait normal. Psychiatric: Mood and Affect: Mood normal. Behavior: Behavior normal. Thought Content: Thought content normal. Judgment: Judgment normal. { 1. Burning with urination (R30.0) 2. Candidal vulvovaginitis (B37.31) - Acute onset of dysuria without frequency or urgency; urinalysis unremarkable. - Most likely candidal vulvovaginitis; differential includes bacterial vaginosis. - Urine sent for culture Swabs obtained to rule out STI - Start Pyridium for symptomatic relief. - Discussed pH balance and potential contributing factors. - Results will be communicated via phone or MyChart. 3. Encounter for screening for bacterial sexually transmitted disease (Z11.3) and Recording using Cumed software for Layer (more content not included)... Normal [facility] UA DIP, URINE (POC)on 2024 BILIRUBIN UA (POCT) Negative Negative [facility] CLARITY UA (POCT) Clear [facility] COLOR UA (POCT) Yellow [facility] GLUCOSE UA (POCT) Negative Negative mg/dL [facility] Hemoglobin Ql (U) Negative Negative [facility] KETONE UA (POCT) Negative Negative mg/dL [facility] LEUKOCYTES UA (POCT) Negative Negative [facility] NITRITE UA (POCT) Negative Negative [facility] PH UA (POCT) 5.5 4.5 - 8.0 [facility] Protein Ql (U) Negative Negative mg/dL [facility] SPECIFIC GRAVITY UA (POCT) >=1.030 1.005 - 1.030 [facility] UROBILINOGEN UA (POCT) 0.2 Normal E.U./dL [facility] Location:[facility], [address] [place] [address], [place], [address] [facility] POINT OF CARE [facility] CNOVon 12-09-2024 CNOV Office Visit (WORAYNE) BECKY HILL ([id number]) 1990 F Date Time Provider Department 12/09/24 8:15 AM WING GUERRERO During your visit today, we recorded the following information about you: Temperature Pulse Respiration Blood pressure 97 degrees 63/minute 18/minute 95/64 Weight Last Period 51 kg 12/09/24 Wing Guerrero APRN.CAP MACHINE OPERATOR 12/09/2024 8:33 AM Signed [facility] Pruitt Van is a 34 year old female. Patient presents with: Chest Congestion: Cough, headache, sore throat, chest tightness and pressure, chills, low grade temp, headache, deep chest cough x 2 days Headache was x 4 HPI Nontoxic-appearing 34-year-old female presents urgent care chief complaint URI-like symptoms. Duration of symptoms 3 to 4 days. Associated symptoms cough body aches chills fatigue sinus pressure headache. Headache started first. Daughter was sick similar signs symptoms. OTC medications none. Body aches and chills started last night. Did have a few episodes of loose stool no blood. Denies any chest pain hemoptysis or pleuritic pain today. Some chest pain last night with coughing. No high fevers. Is not . Past medical history prescription medications allergies reviewed Review of Systems Constitutional: Positive for chills and fatigue. Negative for diaphoresis and fever. HENT: Positive for congestion, sinus pressure and sore throat. Negative for drooling, ear discharge, ear pain, rhinorrhea, sinus pain, sneezing and trouble swallowing. Eyes: Negative for pain, discharge, redness, itching and visual disturbance. Respiratory: Positive for cough. Negative for chest tightness, shortness of breath and wheezing. Cardiovascular: Negative for chest pain. Gastrointestinal: Negative for abdominal distention, abdominal pain, blood in stool, constipation, diarrhea, nausea and vomiting. Genitourinary: Negative for difficulty urinating and dysuria. Musculoskeletal: Negative for arthralgias, joint swelling, neck pain and neck stiffness. Skin: Negative for rash. Neurological: Positive for headaches. Negative for dizziness, weakness and numbness. Objective BP 95/64 Pulse 63 Temp 36.1 ?C (97 ?F) Resp 18 Wt 51 kg (112 lb 7 oz) LMP 12/09/2024 (Exact Date) SpO2 100% BMI 16.85 kg/m? Physical Exam Constitutional: Appearance: Normal appearance. HENT: Head: Normocephalic. Jaw: No trismus, tenderness, swelling or pain on movement. Nose: No congestion. Mouth/Throat: Mouth: Mucous membranes are moist. Pharynx: Oropharynx is clear. Uvula midline. No oropharyngeal exudate or posterior oropharyngeal erythema. Eyes: Conjunctiva/sclera: Conjunctivae normal. Cardiovascular: Rate and Rhythm: Normal rate. Pulmonary: Effort: Pulmonary effort is normal. Breath sounds: Normal breath sounds. No wheezing, rhonchi or rales. Abdominal: Palpations: Abdomen is soft. Tenderness: There is no abdominal tenderness. There is no guarding or rebound. Musculoskeletal: General: Normal range of motion. Cervical back: Normal range of motion and neck supple. No edema, erythema or rigidity. No pain with movement. Normal range of motion. Lymphadenopathy: Cervical: No cervical adenopathy. Skin: General: Skin is warm. Findings: No rash. Neurological: General: No focal deficit present. Mental Status: She is alert and oriented to person, place, and time. Mental status is at baseline. {ASSESSMENT/PLAN: 1. Viral illness - ICD9: 079.99, ICD10: B34.9 - Discussed viral etiology and rationale for treatment. - Symptomatic treatment with prn analgesia - Supportive care with fluids and rest - COVID AND INFLUENZA A/B AND RSV PCR, ROUTINE No evidence of bacterial infection on today's assessment. Treat as viral etiology. Patient was educated on supportive therapies. Patient will follow up with primary care provider as needed. Patient was instructed to immediately proceed to emergency room for any new, worsening, or symptoms lasting longer than anticipated. The patient's clinical presentation is otherwise unremarkable at this time. Based on exam and clinical finding, the patient is stable for discharge. Plan of care was discussed with patient. Patient verbalizes understanding and agrees to plan of care. This note was generated using [employer] software. It may contain errors in wording, punctuation, or spelling. Wing Guerrero APRN.CAP MACHINE OPERATOR History and Record Review Clinical information obtained from an independent historian. History obtained from or confirmed by: parent. External record(s) reviewed: prior outpatient record. Disposition The patient was discharged. OTC Medications were advised: Procedures Allergies As of Date: 12/09/2024 Noted Allergy Reaction AZITHROMYCIN 07/13/2019 4 - Hives BACTRIM (SULFAMETHOXAZOLE-TRIME TH*03/13/2015 9 - Itching SUL (more content not included)... Normal [facility] BACTERIAL VAGINOSIS NAATon 0 11-11-2024 Lactobacillus crispatus+gasseri+j ensenii + Gardnerella vaginalis + Atopobium vaginae rRNA YAIR+probe Ql (Vag fld) Detected Abnormal Not detected [facility] Comment on above: Order Comment: Speci men Type: SWABOrdering Facility: [facility] Address: [address] [place] [address] Performed By: #### B VAMP, 11823-9 ####[facility] LABCLIA [id number] [place] [address] [place] Bacteria Ur Culton 5 Bacteria identified Cx Nom (U) CULTURE, URINE: No growth (<1,000 CFU/ml) Normal [facility] Comment on above: Performed By: #### 6 30-4 ####[facility] LABCLIA [id number] [place] [address] [place] C. trachomatis+N. gonorrhoea e DNA YAIR+probe Ql (Unsp spec)on 11-11-2024 C. trachomatis rRNA YAIR+probe Ql (Unsp spec) Not detected Normal Not detected [facility] Comment on above: Order Comment: Speci men Type: SWABOrdering Facility: [facility] Address: [address] [place] [address] Performed By: #### B VAMP, 75221-8 ####[facility] LABCLIA [id number] [place] [address] [place] N. gonorrhoeae rRNA YAIR+probe Ql (Unsp spec) Not detected Normal Not detected [facility] Comment on above: Order Comment: Speci men Type: SWABOrdering Facility: [facility] Address: [address] [place] [address] Performed By: #### B VAMP, 11204-5 ####[facility] LABCLIA [id number] [place] [address] [facility] [place] SANTOS/TRICHOMONAS NAATon 0 11-11-2024 C. glabrata RNA YAIR+probe Ql (Vag fld) Detected Abnormal Not detected [facility] Comment on above: Order Comment: Speci men Type: SWABOrdering Facility: [facility] Address: [address] [place] [address] Performed By: #### C VTV ####[facility] LABIA [id number] [address] [place] Santos sp DNA YAIR+probe Ql (Vag fld) Not detected Normal Not detected [facility] Comment on above: Order Comment: Speci men Type: SWABOrdering Facility: [facility] Address: [address] [place] [address] Result Comment: The Santos species group target includes C. albicans, C. tropicalis, C. parapsilosis, and C. dubliniensis. Performed By: #### C VTV ####[facility] LABIA [id number] [address] [place] T. vaginalis DNA YAIR+probe Ql (Unsp spec) Not detected Normal Not detected [facility] Comment on above: Order Comment: Speci men Type: SWABOrdering Facility: [facility] Address: [address] [place] [address] Performed By: #### C VTV ####[facility] LABIA [id number] [place] [address] [place] CNOVon 11-11-2024 CNOV Office Visit ([facility] ) BECKY [id number]) 1990 F Date Time Provider Department 11/11/24 9:45 AM VEDA LEWIS [facility] During your visit today, we recorded the following information about you: Temperature Pulse Respiration Blood pressure 98 degrees 75/minute 18/minute 100/62 Weight 51.7 kg Veda Lewis PA 11/11/2024 10:01 AM Signed [facility] Subjective Becky Hill is a 33 year old female. Patient presents with: Urinary Problem: Possible uti, burning with urination x 2 days HPI Dysuria: - Dysuria x2 days, worsening today. - Denies hematuria, increased urinary frequency, or urgency. - Currently menstruating. No concern . + tubal ligation. Pruritus: - Vaginal pruritus; denies discharge. - Denies concern for STIs. 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 - Improved today. - Denies abdominal pain, fevers, or emesis. Review of Systems Constitutional: (-) fever Gastrointestinal: (-) abdominal pain, (-) vomiting Genitourinary: (+) dysuria, (+) vaginal pruritus, (-) urinary frequency, (-) vaginal discharge Objective BP 100/62 Pulse 75 Temp 36.7 ?C (98 ?F) Resp 18 Wt 51.7 kg (113 lb 15.7 oz) LMP 02/02/2024 (Approximate) SpO2 99% BMI 17.08 kg/m? Physical Exam Vitals and nursing note reviewed. Constitutional: General: She is not in acute distress. Appearance: Normal appearance. She is not toxic-appearing. HENT: Mouth/Throat: Mouth: Mucous membranes are moist. Cardiovascular: Rate and Rhythm: Normal rate and regular rhythm. Pulmonary: Effort: Pulmonary effort is normal. Breath sounds: Normal breath sounds. Abdominal: General: Abdomen is flat. Palpations: Abdomen is soft. Tenderness: There is no abdominal tenderness. There is no right CVA tenderness, left CVA tenderness, guarding or rebound. Genitourinary: Comments: Deferred Skin: General: Skin is warm and dry. Neurological: Mental Status: She is alert. {1. Burning with urination (R30.0) - Hematuria noted on urinalysis, likely secondary to menstruation. - No evidence of infection on initial urinalysis; urine culture ordered to confirm. - No antibiotics prescribed at this time. 2. Vaginal itching (N89.8) - Differential diagnosis includes yeast infection and bacterial vaginosis. - Ordered vaginal swabs for yeast infection, bacterial vaginosis, chlamydia, and gonorrhea. - Patient to perform self-swabbing; results to be communicated in a few days. Recording using [employer] software for draft documentation of the visit was discussed with the patient/authorized hr representative; all questions welcomed and answered. Patient/authorized hr representative agreed to proceed History and Record Review External record(s) reviewed: prior outpatient record. Differential Diagnoses - Vaginitis is more likely for the following reason(s): suggested by HANDP - UTI is less likely for the following reason(s): HANDP not suggestive and laboratory studies not suggestive Disposition The patient was discharged. Procedures Allergies As of Date: 11/11/2024 Noted Allergy Reaction AZITHROMYCIN 07/13/2019 4 - Hives BACTRIM (SULFAMETHOXAZOLE-TRIME TH*03/13/2015 9 - Itching Date Reviewed: 11/11/2024 Reviewed by: Mar Multani MA - Fully Assessed Reason for Visit: Urinary Problem [252] Cmt: Possible uti, burning with urination x 2 days Primary Visit Diagnosis:Burning with urination [R30.0] Other Visit Diagnosis:Vaginal itching [N89.8] Order(s):UA DIP, URINE (POC) [2645717] Order #: [id number]. #:[id number] BACTERIAL CULTURE, URINE [SQURCUL] Order #: [id number]. #:[id number] SANTOS/TRICHOMONAS NAAT [SQCVTV] Order #: [id number]. #:[id number] BACTERIAL VAGINOSIS NAAT [SQBVAMP] Order #: [id number]. #:[id number] GONORRHEA/CHLAMYDIA NAAT [SQGCCT] Order #: [id number] FUTURE GONORRHEA/CHLAMYDIA NAAT [SQGCCT] Order #: [id number]. #:[id number] Problem List As Of Date 11/11/2024 Noted Resolved Genital warts complicating [O98.319, *03/13/2015 06/09/2018 Supervision of other high risk pregnancies, sec*03/13/2015 10/31/2015 Maternal tobacco use in second trimester [O99.3*03/13/2015 Pap smear of cervix with ASCUS, cannot exclude *03/27/2015 06/17/2018 Cervical high risk HPV (human papillomavirus) t*03/27/2015 Hx of maternal laceration, 4th degree, currentl*05/24/2015 Encounter for sterilization [Z30.2] 07/28/2015 06/17/2018 HSIL (high grade squamous intraepithelial lesio*06/17/2018 History of prior with SGA [Z8*07/13/2019 SGA (small for gestational age) [P05.10] 11/26/2019 Letter Text Encounter Status:Closed by VEDA LEWIS on 11/11/24 Normal [facility] UA DIP, URINE (POC)on 2024 BILIRUBIN UA (POCT) Negative Negative [facility] CLARITY UA (POCT) Clear [facility] COLOR UA (POCT) Yellow [facility] GLUCOSE UA (POCT) Negative Negative mg/dL [facility] Hemoglobin Ql (U) Large Abnormal Negative [facility] Interpretation and review of laboratory results Abnormal [facility] KETONE UA (POCT) Negative Negative mg/dL [facility] LEUKOCYTES UA (POCT) Negative Negative [facility] NITRITE UA (POCT) Negative Negative [facility] PH UA (POCT) 6.5 4.5 - 8.0 [facility] Protein Ql (U) Negative Negative mg/dL [facility] SPECIFIC GRAVITY UA (POCT) 1.015 1.005 - 1.030 [facility] UROBILINOGEN UA (POCT) 0.2 Normal E.U./dL [facility] Location:[facility], [address] [place] [address], [place], [address] [facility] CNOVon 09-08-2024 CNOV Office Visit ([facility] ) BECKY HILL ([id number]) 1990 F Date Time Provider Department 09/08/24 2:30 PM ANIYAH BREEN [facility] During your visit today, we recorded the following information about you: Temperature Pulse Respiration Blood pressure 97.6 degrees 68/minute 18/minute 98/62 Weight 53.1 kg Aniyah Breen APRN.CAP MACHINE OPERATOR 09/08/2024 3:06 PM Signed [facility] Subjective Becky Sonal Van is a 33 year old female. Patient presents with: Derm Problem: Hard bump on face x 2 days 33 year old female with no significant PMH presents for skin complaints Acute onset 2 days ago Cheek near nasal region Denies fever or chills Denies malaise or fatigue Denies URI sx The history is provided by the patient. No traffic engineering technician was used. Abscess This is a new problem. Episode onset: 2 days ago. The problem occurs constantly. The problem has been unchanged. Pertinent negatives include no abdominal pain, anorexia, arthralgias, change in bowel habit, chest pain, chills, congestion, coughing, diaphoresis, fatigue, fever, headaches, joint swelling, myalgias, nausea, neck pain, numbness, rash, sore throat, swollen glands, urinary symptoms, vertigo, visual change, vomiting or weakness. Nothing aggravates the symptoms. She has tried nothing for the symptoms. The treatment provided no relief. PAST MEDICAL HISTORY Diagnosis Date Abnormal Pap smear of cervix PAST SURGICAL HISTORY Procedure Laterality Date PAST SURGICAL HISTORY OF wosdom teeth ALLERGIES Azithromycin and Bactrim [Sulfamethoxazole-Trime thoprim] MEDICATIONS doxycycline (VIBRA-TABS) 100 mg tablet Take 1 tablet by mouth two times a day for 7 days. FAMILY HISTORY Problem Relation Age of Onset Cancer Mother 45 Social History Tobacco Use Smoking status: Every Day Smokeless tobacco: Never Tobacco comments: 4-5 cigarettes per day Vaping Use Vaping status: Never Used Substance Use Topics Alcohol use: Yes Comment: not while Drug use: No Review of Systems Constitutional: Negative for chills, diaphoresis, fatigue and fever. HENT: Negative for congestion and sore throat. Respiratory: Negative for cough. Cardiovascular: Negative for chest pain. Gastrointestinal: Negative for abdominal pain, anorexia, change in bowel habit, nausea and vomiting. Musculoskeletal: Negative for arthralgias, joint swelling, myalgias and neck pain. Skin: Negative for rash. Neurological: Negative for vertigo, weakness, numbness and headaches. Objective BP 98/62 Pulse 68 Temp 36.4 ?C (97.6 ?F) (Tympanic) Resp 18 Wt 53.1 kg (117 lb 1 oz) LMP 02/02/2024 (Approximate) BMI 17.54 kg/m? Physical Exam Vitals and nursing note reviewed. Constitutional: General: She is not in acute distress. Appearance: Normal appearance. She is normal weight. She is not ill-appearing, toxic-appearing or diaphoretic. HENT: Head: Normocephalic and atraumatic. Right Ear: Ear canal and external ear normal. Left Ear: Ear canal and external ear normal. Nose: Nose normal. No congestion or rhinorrhea. Mouth/Throat: Mouth: Mucous membranes are moist. Pharynx: No oropharyngeal exudate or posterior oropharyngeal erythema. Eyes: General: Right eye: No discharge. Left eye: No discharge. Extraocular Movements: Extraocular movements intact. Conjunctiva/sclera: Conjunctivae normal. Pupils: Pupils are equal, round, and reactive to light. Cardiovascular: Rate and Rhythm: Normal rate and regular rhythm. Pulses: Normal pulses. Heart sounds: Normal heart sounds. No murmur heard. No friction rub. Pulmonary: Effort: Pulmonary effort is normal. No respiratory distress. Breath sounds: Normal breath sounds. No stridor. No wheezing, rhonchi or rales. Chest: Chest wall: No tenderness. Abdominal: General: Abdomen is flat. There is no distension. Palpations: Abdomen is soft. There is no mass. Tenderness: There is no abdominal tenderness. There is no right CVA tenderness, left CVA tenderness, guarding or rebound. Hernia: No hernia is present. Musculoskeletal: General: No swelling, tenderness, deformity or signs of injury. Normal range of motion. Cervical back: Normal range of motion and neck supple. No rigidity. Right lower leg: No edema. Left lower leg: No edema. Lymphadenopathy: Cervical: No cervical adenopathy. Skin: General: Skin is warm and dry. Coloration: Skin is not jaundiced or pale. Findings: No bruising, erythema, lesion or rash. Neurological: General: No focal deficit present. Mental Status: She is alert and oriented to person, place, and time. Cranial Nerves: No cranial nerve deficit. Sensory: No sensory deficit. Motor: No weakness. Coordination: Coordination normal. Gait: Gait normal. Psychiatric: Mood and Affect: Mood normal. Behavior: Behavior normal. Thought Content: Though (more content not included)... Normal [facility] CNOVon 07-26-2024 CNOV Office Visit ([facility] ) BECKY HILL ([id number]) 1990 F Date Time Provider Department 07/26/24 8:30 AM RACHEL MADRID [facility] During your visit today, we recorded the following information about you: Temperature Pulse Respiration Blood pressure 97.2 degrees 68/minute 16/minute 96/60 Weight 54.3 kg Rachel Madrid APRN.CAP MACHINE OPERATOR 07/26/2024 9:04 AM Signed [facility] Subjective Becky Hill is a 33 year old female. Patient presents with: Headache: diarrhea x this am Headache Associated symptoms include nausea. Pertinent negatives include no fever and no vomiting. Becky Hill is a 33 year old female who presents with a scratchy throat, diarrhea, and headache for the past 2 hours. She notes exposure to her kids who were sick for 2 or 3 days but were not evaluated for their illnesses. She took tylenol this morning for a headache. Review of Systems Constitutional: Negative for chills and fever. HENT: Positive for sore throat (scratchy). Respiratory: Negative for cough. Cardiovascular: Negative. Gastrointestinal: Positive for diarrhea and nausea. Negative for vomiting. Neurological: Positive for headaches. Objective BP 96/60 Pulse 68 Temp 36.2 ?C (97.2 ?F) Resp 16 Wt 54.3 kg (119 lb 11.4 oz) LMP 02/02/2024 (Approximate) SpO2 100% BMI 17.94 kg/m? PAST MEDICAL HISTORY Diagnosis Date - Abnormal Pap smear of cervix PAST SURGICAL HISTORY Procedure Laterality Date - PAST SURGICAL HISTORY OF wosdom teeth ALLERGIES Azithromycin and Bactrim [Sulfamethoxazole-Trime thoprim] MEDICATIONS No prescriptions on file. FAMILY HISTORY Problem Relation Age of Onset - Cancer Mother 45 Social History Tobacco Use - Smoking status: Every Day - Smokeless tobacco: Never - Tobacco comments: 4-5 cigarettes per day Vaping Use - Vaping status: Never Used Substance Use Topics - Alcohol use: Yes Comment: not while - Drug use: No Physical Exam Vitals and nursing note reviewed. Constitutional: General: She is not in acute distress. Appearance: Normal appearance. She is not ill-appearing. HENT: Nose: Nose normal. Mouth/Throat: Mouth: Mucous membranes are moist. Pharynx: Oropharynx is clear. No oropharyngeal exudate or posterior oropharyngeal erythema. Cardiovascular: Rate and Rhythm: Normal rate and regular rhythm. Heart sounds: Normal heart sounds. Pulmonary: Effort: Pulmonary effort is normal. No respiratory distress. Breath sounds: Normal breath sounds. No wheezing or rales. Lymphadenopathy: Cervical: No cervical adenopathy. Skin: General: Skin is warm and dry. Findings: No erythema or rash. Neurological: Mental Status: She is alert. ASSESSMENT/PLAN: 1. Viral illness - ICD9: 079.99, ICD10: B34.9 - Discussed viral etiology and rationale for treatment. - Symptomatic treatment with prn analgesia - Supportive care with fluids and rest - INFLUENZA AANDB MOLECULAR (POC)- negative - COVID AND INFLUENZA A/B AND RSV PCR, ROUTINE Office Visit on 07/26/2024 Component Date Value Ref Range Status - Flu A (POCT) 07/26/2024 Negative Negative Final - Flu B (POCT) 07/26/2024 Negative Negative Final - Procedural Control 07/26/2024 Valid Final - Follow-up with your PCP in 3-5 days if symptoms have not improved or sooner if symptoms worsen - Discussed red flags and need for immediate medical evaluation if any occur. - Discussed supportive care treatment with fluids, rest and analgesia. - Discussed expected course of illness Rachel Madrid APRN.CAP MACHINE OPERATOR Differential Diagnoses - viral illness is more likely for the following reason(s): suggested by HANDP - influenza is less likely for the following reason(s): laboratory studies not suggestive and HANDP not suggestive Disposition The patient was discharged. Procedures Rachel Madrid APRN.TORSTEN 07/26/2024 9:04 AM Signed ASSESSMENT/PLAN: 1. Viral illness - ICD9: 079.99, ICD10: B34.9 - Discussed viral etiology and rationale for treatment. - Symptomatic treatment with prn analgesia - Supportive care with fluids and rest - INFLUENZA AANDB MOLECULAR (POC)- negative - COVID AND INFLUENZA A/B AND RSV PCR, ROUTINE Office Visit on 07/26/2024 Component Date Value Ref Range Status Flu A (POCT) 07/26/2024 Negative Negative Final Flu B (POCT) 07/26/2024 Negative Negative Final Procedural Control 07/26/2024 Valid Final - Follow-up with your PCP in 3-5 days if symptoms have not improved or sooner if symptoms worsen - Discussed red flags and need for immediate medical evaluation if any occur. - Discussed supportive care treatment with fluids, rest and analgesia. - Discussed expected course of illness Rachel Madrid APRN.CAP MACHINE OPERATOR Treatment for Viral Upper Respiratory Tract Infections Your body will kill off the virus by itself. Additionally, you can prime yo (more content not included)... Normal [facility] INFLUENZA A&B MOLECULAR (POC )on 07-26-2024 Flu A (POCT) Negative Negative [facility] Flu B (POCT) Negative Negative [facility] Procedural Control Valid [facility] Location:[facility], [facility], [place], [address] [facility] C[facility] Urine Cultureon 07-02-2024 [facility] Streptococcus group B [place] Count 25,000-50,000 Streptococcus group B: REACTION Ampicillin Islt RACHEL <=0.25 Cefotaxime Islt RACHEL <=0.12 S cefTRIAXone Islt RACHEL <=0.12 S Clindamycin Islt RACHEL >=1 R Linezolid Islt RACHEL <=2 S Vancomycin Islt RACHEL 0.5 S Normal [facility] Comment on above: Performed By: #### M [id number] #### [facility] [address] [place], [place], [address] Emergency Department Summary on 06-30-2024 Emergency Department Summary [facility] Medical Records Department [address] [place] [address] Emergency Department Summary 06/30/24 MR#: [id number] Acct: [id number] Name: BECKY HILL Rep #: [id number] : 1990 33 From: Victor M Max MD PCP: Care Physician,No Primary Status:REG ER Location: ED HPI HPI - Female History of Present Illness Chief Complaint: Complaint Narrative Narrative: 33-year-old female past medical history of frequent UTIs, last being a few months ago presents with dark urine and dysuria that she has had for the last few weeks. She states that she tends to let her symptoms go for a while. She denies any fevers or chills, no nausea or vomiting. She does have low back pain but denies any flank pain. She is concerned that she may have another urinary tract infection. PFSH PFSH Home Medications ???Medication ???Instructions ???Recorded ???Last Taken ???Type clindamycin HCl 300 mg capsule 300 mg PO Q6H #40 CAPSULES 4 Unknown Rx (Cleocin HCl) naproxen 500 mg tablet 500 mg PO BID #20 tabs 10/21/23 Un known Rx cephalexin 500 mg capsule 500 mg PO Q6 #40 CAPSULES 11/04/23 Unknown Rx nitrofurantoin 100 mg PO Q12 #10 CAPSULES 4 Unknown Rx monohydrate/macrocrysta ls 100 mg capsule ciprofloxacin HCl 500 mg tablet 500 mg PO BID #14 TABLETS 03/17/24 Unknown Rx phenazopyridine 200 mg tablet 200 mg PO TID 6 doses #6 tabs 02/18 Unknown Rx (Pyridium) Allergy/AdvReac Type Severity Reaction Status Date / Time azithromycin (From Zithromax) Allergy Itching Verified 06/30/24 12:28 sulfamethoxazole (From Allergy Itching Verified 06/30/24 12:28 Bactrim) trimethoprim (From Bactrim) Allergy Itching Verified 06/30/24 12:28 Surgical History History of bilateral salpingectomy Social History (Updated 06/30/24 @ 12:32 by Heather Smart) household members: children housing: house Smoking Status: Current every day smoker tobacco type: cigarettes substance use type: does not use ROS ROS ED ROS Narrative Constitutional: No fever, no chills. HEENT: No sore throat. No neck pain. No loss of vision. No rhinorrhea. Cardiovascular: No chest pain. No palpitations. No pedal edema. Respiratory: No cough, no shortness of breath. Abdominal: No abdominal pain. No nausea. No vomiting. Genitourinary: Positive dysuria. Positive dark urine. Musculoskeletal: Low back pain. No flank pain. EXAM Physical Exam Narrative Exam Narrative: Afebrile prior to vital signs noted. Nontoxic-appearing. Cardiovascular examination regular rate and rhythm. Lungs clear to auscultation bilaterally. Abdomen soft nontender with positive bowel sounds. No CVA tenderness to percussion bilaterally. Neurological examination nonfocal and nonlateralizing. Const Vital Signs: 06/30/24 12:26 06/30/24 14:26 06/30/24 14:57 Temperature 98.2 F 98.3 F Temperature Source Oral Pulse Rate 72 69 69 Respiratory Rate 18 16 Blood Pressure 116/58 L 128/36 H 128/36 H Blood Pressure Mean 77 66 66 Pulse Ox 100 99 99 Oxygen Delivery Method Room Air MDM MDM MDM Narrative Medical decision making narrative: Differential diagnosis includes but not limited to cystitis versus dysuria without infection versus pyelonephritis. I have low clinical suspicion for pyelonephritis. She is not febrile here. Additionally, she had bilateral tubal ligation and her abdomen is nontender, but protocol labs were started and UA was sent as well as urine . Review of her urinalysis shows negative ketones, occult blood at 10 with RBC 0-5, within normal limits but 5-10 WBCs. There are 10-25 squamous epithelial cells with rare bacteria and 1+ mucus. With her symptoms ongoing for a few weeks, I do feel this is probably more of a contaminated specimen. Her urine will be sent for culture. I discussed this with the patient and she is agreeable to waiting for antibiotics until urine culture results return. Urine test is negative. I feel she can be discharged and that she does not require observation or admission. Return instructions reviewed. Disposition is discharged home in stable condition. History Record Review Discussion w/independent historian: Patient Lab Data Attestation: I reviewed the patient's lab results. Labs: Laboratory Results - last 24 hr 06/30/24 12:42 Urine Color Yellow Urine Clarity Sl. Cloudy Urine pH 6.0 Ur Specific [place] 1.020 Urine Protein 15 H Urine Glucose (UA) Normal Urine Ketones Negative Urine Occult Blood 10 H Urine Nitrite Negative Urine Bilirubin Negative Urine Urobilinogen 1 H Ur Leukocyte Esterase 25 H Urine RBC 0-5 SEEN Urine WBC 5-10 SEEN Ur Squamous Epith Cells 10-25 SEEN (more content not included)... Normal [facility] ,Urineon 06-30-2024 Beta HCG ( test) Ql (U) Negative Normal [facility] Comment on above: Result Comment: Very dilute urine specimens, as indicated by a low specific gravity, may not contain hr representative levels of hCG. If is still suspected, a first morning urine specimen should be collected 48 hours later and tested. Performed By: #### L 400.7600, L400.0001 #### [facility] [address] [place], [address] Urinalysis, Completeon 06-30 BACTERIA RARE Normal None Seen [facility] Comment on above: Order Comment: CLEAN CATCH Performed By: #### L 400.7600, [id number] #### [facility] [address] [place], [address] Mucus Ql (Urine sed) 1+ /hpf Normal [facility] Comment on above: Order Comment: CLEAN CATCH Performed By: #### L 400.7600, [id number] #### [facility] [address] [place], [address] EPI,SQUAMOUS 10-25 SEEN Normal 5-10 [facility] Comment on above: Order Comment: CLEAN CATCH Performed By: #### L 400.7600, [id number] #### [facility] [address] [place], [address] RBC 0-5 SEEN Normal 0-5 [facility] Comment on above: Order Comment: CLEAN CATCH Performed By: #### L 400.7600, [id number] #### [facility] [address] [place], [address] WBC 5-10 SEEN Normal 0-5 [facility] Comment on above: Order Comment: CLEAN CATCH Performed By: #### L 400.7600, [id number] #### [facility] [address] [place], [address] [facility] BECKY HILL ([id number]) 1990 F Date Time Provider Department 04/01/24 VEDA LEWIS [facility] During your visit today, we recorded the following information about you: Veda Lewis, PA 04/01/2024 7:08 AM Signed Negative COVID flu RSV Maria Luisa Vines LPN 04/01/2024 8:15 AM Signed Left message for patient to return call. ROSIE Antony Brandi, LPN 04/03/2024 8:54 AM Signed Patient given results and verbalized understanding of instructions given. Maria Luisa Vines LPN Allergies As of Date: 04/01/2024 Noted Allergy Reaction AZITHROMYCIN 07/13/2019 4 - Hives BACTRIM (SULFAMETHOXAZOLE-TRIME TH*03/13/2015 9 - Itching Date Reviewed: 03/31/2024 Reviewed by: Wing Guerrero APRN.CAP MACHINE OPERATOR - Fully Assessed Reason for Visit: Results [95] Problem List As Of Date 04/01/2024 Noted Resolved Genital warts complicating [O98.319, *03/13/2015 06/09/2018 Supervision of other high risk pregnancies, sec*03/13/2015 10/31/2015 Maternal tobacco use in second trimester [O99.3*03/13/2015 Pap smear of cervix with ASCUS, cannot exclude *03/27/2015 06/17/2018 Cervical high risk HPV (human papillomavirus) t*03/27/2015 Hx of maternal laceration, 4th degree, currentl*05/24/2015 Encounter for sterilization [Z30.2] 07/28/2015 06/17/2018 HSIL (high grade squamous intraepithelial lesio*06/17/2018 History of prior with SGA [Z8*07/13/2019 SGA (small for gestational age) [P05.10] 11/26/2019 Encounter Status:Closed by MARIA LUISA VINES on 04/03/24 [facility] CNOVon 03-31-2024 CNOV Office Visit ([facility] ) BECKY HILL ([id number]) 1990 F Date Time Provider Department 03/31/24 1:00 PM WING GUERRERO [facility] During your visit today, we recorded the following information about you: Temperature Pulse Respiration Blood pressure 96.9 degrees 88/minute 16/minute 92/60 Weight 50.5 kg Wing Guerrero APRN.CAP MACHINE OPERATOR 03/31/2024 12:55 PM Signed Subjective HPI Nontoxic-appearing female presents urgent care chief complaint nasal congestion chills vomiting fatigue. Vomited 3 times yesterday. None today. Been around cousin who was sick similar signs symptoms she was told she had a viral illness by the doctors. Denies any abdominal pain. No fevers. No chest pain or productive cough. Past medical history prescription medications allergies reviewed .Patient presents with: Congested: some congestion, chills and vomiting x 1 day PAST MEDICAL HISTORY Diagnosis Date Abnormal Pap smear of cervix PAST SURGICAL HISTORY Procedure Laterality Date PAST SURGICAL HISTORY OF wosdom teeth ALLERGIES Azithromycin and Bactrim [Sulfamethoxazole-Trime thoprim] MEDICATIONS No prescriptions on file. FAMILY HISTORY Problem Relation Age of Onset Cancer Mother 45 Social History Tobacco Use Smoking status: Every Day Smokeless tobacco: Never Tobacco comments: 4-5 cigarettes per day Vaping Use Vaping status: Never Used Substance Use Topics Alcohol use: Yes Comment: not while Drug use: No BP 92/60 Pulse 88 Temp 36.1 ?C (96.9 ?F) Resp 16 Wt 50.5 kg (111 lb 5.3 oz) LMP 02/02/2024 (Approximate) SpO2 95% BMI 16.68 kg/m? Review of Systems Constitutional: Positive for chills and malaise/fatigue. Negative for fever. HENT: Positive for congestion. Negative for ear discharge, ear pain, sinus pain and sore throat. Eyes: Negative for blurred vision, pain, discharge and redness. Respiratory: Negative for cough, hemoptysis, sputum production, shortness of breath, wheezing and stridor. Cardiovascular: Negative for chest pain. Gastrointestinal: Positive for vomiting. Negative for abdominal pain, diarrhea and nausea. Musculoskeletal: Positive for myalgias. Skin: Negative for itching and rash. Neurological: Negative for dizziness and headaches. Objective Physical Exam Constitutional: General: She is not in acute distress. Appearance: She is not diaphoretic. HENT: Head: Normocephalic. Jaw: No trismus, tenderness, swelling or pain on movement. Mouth/Throat: Mouth: Mucous membranes are moist. Pharynx: Oropharynx is clear. Uvula midline. No pharyngeal swelling, oropharyngeal exudate, posterior oropharyngeal erythema or uvula swelling. Eyes: Conjunctiva/sclera: Conjunctivae normal. Pupils: Pupils are equal, round, and reactive to light. Cardiovascular: Rate and Rhythm: Normal rate and regular rhythm. Heart sounds: Normal heart sounds. Pulmonary: Effort: Pulmonary effort is normal. No tachypnea, accessory muscle usage or respiratory distress. Breath sounds: Normal breath sounds. No stridor. No wheezing, rhonchi or rales. Abdominal: General: There is no distension. Palpations: Abdomen is soft. Tenderness: There is no abdominal tenderness. There is no guarding or rebound. Musculoskeletal: Cervical back: Normal range of motion and neck supple. No edema, erythema, rigidity or tenderness. No pain with movement. Normal range of motion. Lymphadenopathy: Cervical: No cervical adenopathy. Skin: General: Skin is warm and dry. Neurological: Mental Status: She is alert and oriented to person, place, and time. ASSESSMENT/PLAN: 1. Viral illness - ICD9: 079.99, ICD10: B34.9 - Discussed viral etiology and rationale for treatment. - Symptomatic treatment with prn analgesia - Supportive care with fluids and rest - COVID AND INFLUENZA A/B AND RSV PCR, ROUTINE Patient was educated on supportive therapies. Patient will follow up with primary care provider as needed. Patient was instructed to immediately proceed to emergency room for any new, worsening, or symptoms lasting longer than anticipated. The patient's clinical presentation is otherwise unremarkable at this time. Based on exam and clinical finding, the patient is stable for discharge. Plan of care was discussed with patient. Patient verbalizes understanding and agrees to plan of care. This note was generated using [employer] software. It may contain errors in wording, punctuation, or spelling. Wing Guerrero APRN.CAP MACHINE OPERATOR Allergies As of Date: 03/31/2024 Noted Allergy Reaction AZITHROMYCIN 07/13/2019 4 - Hives BACTRIM (SULFAMETHOXAZOLE-TRIME TH*03/13/2015 9 - Itching Date Reviewed: 03/31/2024 Reviewed by: Wing Guerrero APRN.CAP MACHINE OPERATOR - Fully Assessed Reason for Visit: Congested [91641] Cmt: some congestion, chills and vomiting x 1 day Primary Visit Diagnosis:Viral illness [B34.9 (more content not included)... Normal [facility] COVID AND INFLUENZA A/B AND RSV PCR, ROUTINEon 03-31-2024 SARS-CoV-2 (COVID-19) RNA YAIR+probe Ql (Unsp spec) SARS-COV-2 (AGENT OF COVID-19) RNA: Not detected INFLUENZA A RNA: Not detected INFLUENZA B RNA: Not detected RESPIRATORY SYNCYTIAL VIRUS (RSV) RNA: Not detected Normal [facility] Comment on above: Performed By: #### C VFLRS ####[facility] [id number] [place] [address] [place] Urine Cultureon 03-19-2024 [facility] Proteus mirabilis [place] Count >100,000 Proteus mirabilis: REACTION Ampicillin Islt RACHEL <=2 Ampicillin+Sulbac Islt RACHEL <=2 S ceFAZolin Islt RACHEL <=4 S Cefepime Islt RACHEL <=0.12 S cefTRIAXone Islt RACHEL <=0.25 S Ciprofloxacin Islt RACHEL <=0.25 S Gentamicin Islt RCAHEL <=1 S levoFLOXacin Islt RACHEL <=0.12 S Nitrofurantoin Islt RACHEL R Pip+Tazo Islt RACHEL <=4 S Tobramycin Islt RACHEL <=1 S TMP SMX Islt RACHEL <=20 S Normal [facility] Comment on above: Performed By: #### M 100.2200 #### [facility] [address] [place], [place], [address] Abdomen/Pelvis without Conto n 03-17-2024 Abdomen/Pelvis without Cont [facility] [address] [place], [place] [address] Abdomen/Pelvis without Cont MR#: [id number] Acct: [id number] Name: VANBECKY D Rep #: [id number] : 1990 F 33 From: Sinai Eisenberg MD PCP: Care Physician,No Primary Status: REG ER Study: Abdomen/Pelvis without Cont Date of Exam: 02/18 Exam# [id number] Ordering [place]: [place] [id number] INDICATION: Pelvic pain EXAMINATION: CT ABDOMEN AND PELVIS WITHOUT CONTRAST - CT Abdomen And Pelvis W/O Contrast Injection TECHNIQUE: Helically acquired images were obtained of the abdomen and pelvis without oral or IV contrast. The protocol utilizes one or more of the following dose reduction techniques: automated exposure control, adjustment of mA and/or kV according to patient size,and/or use of iterative reconstruction technique. IV Contrast dosage and agent: None. Oral contrast: None. RADIATION DOSAGE (If Supplied By Facility): CTDIvol = ( 6.05 ) mGy, DLP = ( 291.63 ) mGycm COMPARISON: No relevant prior comparison study available FINDINGS: LOWER CHEST: Lung bases are clear. No cardiomegaly or pericardial effusion. The lack of intravenous contrast limits evaluation of solid visceral organs. LIVER: Homogeneous. No focal mass. GALLBLADDER AND BILIARY TREE: No calcified gallstones. No gallbladder distension or wall edema. No intra- or extrahepatic biliary ductal dilation. PANCREAS: No focal cystic or solid mass. SPLEEN: Normal size without focal cystic or solid mass. ADRENAL GLANDS: No nodules. KIDNEYS AND URETERS: Normal renal size and position. No hydronephrosis. PERITONEUM: No ascites or free air. No other fluid collection. BOWEL: No evidence of acute appendicitis. No stomach or bowel distension. No focal inflammatory change. LYMPH NODES: No enlarged mesenteric or retroperitoneal lymph nodes. VESSELS: Aorta is non-dilated. URINARY BLADDER: There is mild stranding adjacent to the urinary bladder. REPRODUCTIVE ORGANS: No pelvic masses. ABDOMINAL WALL: No discrete abdominal or pelvic wall hernia. BONES: There is a levoscoliosis of the thoracolumbar spine. There are bilateral L5 pars defects. CT/Abdomen/Pelvis without Cont IMPRESSION: Mild stranding adjacent to the urinary bladder, may be secondary to cystitis. Bilateral L5 pars defects. Levoscoliosis of the thoracolumbar spine. Electronically Signed: Sinai Eisenberg MD at 10:28 EDT , CC: Dr. Velasquez Shah, DO; No Primary Care Physician Waxing Machine Operator: Signed Normal [facility] Basic Metabolic Profile (BMP )on 03-17-2024 BUN/CRE 16.2 RATIO Normal 03-07 [facility] Comment on above: Performed By: #### M 100.2200 #### [facility] [address] [place], [address] CA,Total 8.9 mg/dL Normal 8.5-10.1 [facility] Comment on above: Performed By: #### M 100.2200 #### [facility] [address] [place], [address] Chloride [Moles/Vol] 110 mmol/L High 98-107 [facility] Comment on above: Performed By: #### M 100.2200 #### [facility] [address] [place], [address] CO2 [Moles/Vol] 27.0 mmol/L Normal 21.0-32.0 [facility] Comment on above: Performed By: #### M 100.2200 #### [facility] [address] [place], [address] Creatinine [Mass/Vol] 0.80 mg/dL Normal 0.55-1.02 [facility] Comment on above: Result Comment: The validity of the calculated GFR GFRAA in patients over 70 years has not been determined. Clinical correlation is essential. Performed By: #### M 100.2200 #### [facility] [address] [place], [address] ECRCL 75.92 ml/min Normal [facility] Comment on above: Performed By: #### M 100.2200 #### [facility] [address] [place], [address] EST GFR - AA 106 mL/min Normal >60 [facility] Comment on above: Result Comment: Afri can Jordanian GFR Calc Performed By: #### M 100.2200 #### [facility] [address] [place], [address] GAP 3 Low 5-15 [facility] Comment on above: Performed By: #### M 100.2200 #### [facility] [address] [place], [address] GFR/1.73 sq M.predicted among non-blacks MDRD (S/P/Bld) [Vol rate/Area] 87 mL/min/{1.73_m2} Normal >60 [facility] Comment on above: Result Comment: Non- GFR Calc Performed By: #### M 100.2200 #### [facility] [address] [place], [address] Glucose [Mass/Vol] 84 mg/dL Normal 74-106 [facility] Comment on above: Performed By: #### M 100.2200 #### [facility] [address] [place], [address] Potassium [Moles/Vol] 4.2 mmol/L Normal 3.5-5.1 [facility] Comment on above: Performed By: #### M 100.2200 #### [facility] [address] [place], [address] Sodium [Moles/Vol] 140 mmol/L Normal 136-145 [facility] Comment on above: Performed By: #### M 100.2200 #### [facility] [address] [place], [address] Urea nitrogen [Mass/Vol] 13 mg/dL Normal 7-18 [facility] Comment on above: Performed By: #### M 100.2200 #### [facility] [address] [place], [address] CBC W/Diff, Automatedon 10-3 0-2024 Absolute Lymph 1.56 X10 3/uL Normal 0.83-4.51 [facility] Comment on above: Performed By: #### M 100.2200 #### [facility] [address] [place], [address] Absolute Neut 8.2 X10 3/uL High 2.0-7.7 [facility] Comment on above: Performed By: #### M 100.2200 #### [facility] [address] [place], [address] Basophils/100 WBC (Bld) 0.4 % Normal 0-1 [facility] Comment on above: Performed By: #### M 100.2200 #### [facility] [address] [place], [address] Eosinophils/100 WBC (Bld) 1.1 % Normal 0-5 [facility] Comment on above: Performed By: #### M 100.2200 #### [facility] [address] [place], [address] Erythrocyte distribution width (RBC) [Ratio] 13.5 % Normal 11.6-14.6 [facility] Comment on above: Performed By: #### M 100.2200 #### [facility] [address] [place], [address] Hematocrit (Bld) [Volume fraction] 42.5 % Normal 37-47 [facility] Comment on above: Performed By: #### M 100.2200 #### [facility] [address] [place], [address] Hemoglobin (Bld) [Mass/Vol] 13.7 g/dL Normal 12.0-15.0 [facility] Comment on above: Performed By: #### M 100.2200 #### [facility] [address] [place], [address] IG% 0.500 Normal 0.0-0.9 [facility] Comment on above: Result Comment: IG% - Immature Granulocytes (promyelocytes, myelocytes and metamyelocytes) > 1% indicates that a LEFT SHIFT is Present. Performed By: #### M 100.2200 #### [facility] [address] [place], [address] Lymphocytes/100 WBC (Bld) 14.6 % Low 19-41 [facility] Comment on above: Performed By: #### M 100.2200 #### [facility] [address] [place], [address] MCH (RBC) [Entitic mass] 30.0 pg Normal 27.0-32.0 [facility] Comment on above: Performed By: #### M 100.2200 #### [facility] [address] [place], [address] MCHC (RBC) [Mass/Vol] 32.2 g/dL Normal 32-36 [facility] Comment on above: Performed By: #### M 100.2200 #### [facility] [address] [place], [address] MCV (RBC) [Entitic vol] 93.0 fL Normal 81-99 [facility] Comment on above: Performed By: #### M 100.2200 #### [facility] [address] [place], [address] Monocytes/100 WBC (Bld) 6.3 % Normal 0-10 [facility] Comment on above: Performed By: #### M 100.2200 #### [facility] [address] [place], [address] Neutrophils/100 WBC (Bld) 77.1 % High 47-70 [facility] Comment on above: Performed By: #### M 100.2200 #### [facility] [address] [place], [address] Nucleated RBC (Bld) [#/Vol] 0 10*3/uL Normal 0-5 [facility] Comment on above: Performed By: #### M 100.2200 #### [facility] [address] [place], [address] Platelet mean volume (Bld) [Entitic vol] 9.8 fL Normal 6.2-12.0 [facility] Comment on above: Performed By: #### M 100.2200 #### [facility] [address] [place], [address] Platelets (Bld) [#/Vol] 192 10*3/uL Normal 150-450 [facility] Comment on above: Performed By: #### M 100.2200 #### [facility] [address] [place], [address] RBC (Bld) [#/Vol] 4.57 10*6/uL Normal 4.2-5.4 [facility] Comment on above: Performed By: #### M 100.2200 #### [facility] [address] [place], [address] RDW SD 46.3 fl High 35.1-43.9 [facility] Comment on above: Performed By: #### M 100.2200 #### [facility] [address] [place], [address] WBC (Bld) [#/Vol] 10.7 10*3/uL Normal 4.4-11.0 [facility] Comment on above: Performed By: #### M 100.2200 #### [facility] [address] [place], [place], [address] Emergency Department Summary on 03-17-2024 Emergency Department Summary [facility] Medical Records Department [address] [place] [address] Emergency Department Summary 03/17/24 MR#: [id number] Acct: [id number] Name: BECKY HILL Rep #: [id number] : 1990 33 From: Velasquez Shah DO PCP: Care Physician,No Primary Status:DEP ER Location: ED HPI History of Present Illness Chief Complaint: Complaint Informant: patient Onset/Context/Timing Onset: Weeks Context: Gradual Onset Timing: Continuous Quality: Pressure Location: Suprapubic Worsened by: Urination Relieved by: Nothing Narrative Narrative: Patient presents with dysuria and pelvic pressure that has been getting worse over the past couple weeks. Patient was seen here recently for this. Patient was diagnosed with a urinary tract infection and was given a prescription for Macrobid. Patient states she completed the course of Macrobid. Patient states she did not feel any improvement with the Macrobid. Patient states her symptoms have gotten progressively worse. Patient admits to some subjective chills. Patient denies any fevers. Patient admits to some pain radiating into her back. Patient admits to some nausea but denies any vomiting. PFSH PFSH Medical History no medical history no medical history Home Medications ???Medication ???Instructions ???Recorded ???Last Taken ???Type clindamycin HCl 300 mg capsule 300 mg PO Q6H #40 CAPSULES 10/21/23 Unknown Rx (Cleocin HCl) naproxen 500 mg tablet 500 mg PO BID #20 tabs 10/21/23 Unknown Rx cephalexin 500 mg capsule 500 mg PO Q6 #40 CAPSULES 11/04/23 Unknown Rx nitrofurantoin 100 mg PO Q12 #10 CAPSULES 03/08/24 Unknown Rx monohydrate/macrocrysta ls 100 mg capsule ciprofloxacin HCl 500 mg tablet 500 mg PO BID #14 TABLETS 03/17/24 Unknown Rx phenazopyridine 200 mg tablet 200 mg PO TID 6 doses #6 tabs 03/17/24 Unknown Rx (Pyridium) Allergy/AdvReac Type Severity Reaction Status Date / Time azithromycin (From Zithromax) Allergy Itching Verified 03/17/24 07:58 sulfamethoxazole (From Allergy Itching Verified 03/17/24 07:58 Bactrim) trimethoprim (From Bactrim) Allergy Itching Verified 03/17/24 07:58 Surgical History History of bilateral salpingectomy Social History household members: children Smoking Status: Current every day smoker tobacco type: cigarettes substance use type: does not use ROS ROS ED Constitutional Constitutional ED: Reports chills and subjective; Denies fever(s) Eyes Eyes: Denies blurry vision or change in vision ENT ENT ED: Denies rhinorrhea or sore throat Cardiovascular Cardiovascular: Denies chest pain or palpitations Respiratory/Chest Respiratory/Chest: Denies cough or dyspnea Gastrointestinal Gastrointestinal: Reports nausea; Denies vomiting Genitourinary Genitourinary ED: Reports dysuria; Denies hematuria Musculoskeletal Musculoskeletal: Reports back pain; Denies neck pain Integumentary Denies abscess or rash Neurologic Neurologic: Denies headache(s) or weakness Allergic/Immunologic Allergic/Immunologic ED: Denies mouth swelling or urticaria EXAM Physical Exam Const Vital Signs: 03/17/24 07:58 03/17/24 08:01 03/17/24 09:58 Temperature 98.1 F 98.1 F Temperature Source Oral Oral Pulse Rate 68 68 54 L Respiratory Rate 16 16 16 Blood Pressure 121/77 H 121/77 H 98/66 Blood Pressure Mean 91 91 76 Pulse Ox 99 98 96 Oxygen Delivery Method Room Air Room Air Room Air 03/17/24 11:00 Temperature Temperature Source Pulse Rate 74 Respiratory Rate 15 Blood Pressure 105/62 Blood Pressure Mean 76 Pulse Ox 97 Oxygen Delivery Method Room Air Positive well nourished and well developed General Appearance ED: well developed and NAD HEENT Reports moist mucous membranes Neck supple and no JVD Resp normal respiratory effort and clear to auscultation bilaterally Cardio regular rate and regular rhythm GI non-distended Palpation: soft and tender suprapubic; Negative for guarding or rebound tenderness present Neuro oriented x3, CN's II-XII intact bilaterally and no sensory deficits noted Sensorium / Orientation: alert Motor Exam: strength 5/5 throughout Psych mental status grossly normal MDM MDM MDM Narrative Medical decision making narrative: Differential diagnosis includes urinary tract infection, pyelonephritis, sexually transmitted infection, and candidiasis. CBC will be obtained to assess for leukocytosis and anemia. Basic metabolic profile will be obtained to assess for electrolyte abnormality and renal function. Urinalysis will be obtained to assess for urinary tract infection and hematuria. Urine hCG will be obtained to assess for pr (more content not included)... Normal [facility] M8200.2203on 03-17-2024 M8200.2203 Pending Chlamydia Trachomatis PCR NEGATIVE for Chlamydia trachomatis N. gonorrhoeae PCR Negative for N. gonorrhoeae Normal [facility] Comment on above: Performed By: #### M 8200.2203 #### [facility] [address] [place], [place], [id number] ,Urineon 03-17-2024 Beta HCG ( test) Ql (U) Negative Normal [facility] Comment on above: Order Comment: COLLE CTOR TO SPECIFY Result Comment: Very dilute urine specimens, as indicated by a low specific gravity, may not contain hr representative levels of hCG. If is still suspected, a first morning urine specimen should be collected 48 hours later and tested. Performed By: #### M 100.2200 #### [facility] [address] [place] [place], [address] Urinalysis, Completeon 03-17 BACTERIA 1+ /hpf Normal None Seen [facility] Comment on above: Order Comment: COLLE CTOR TO SPECIFY Performed By: #### M 100.2200, L400.0001, L400.7600 #### [facility] [address] [place], [address] RBC 25-50 SEEN Normal 0-5 [facility] Comment on above: Order Comment: COLLE CTOR TO SPECIFY Performed By: #### M 100.2200, L400.0001, L400.7600 #### [facility] [address] [place], [address] EPI,SQUAMOUS 5-10 SEEN Normal 5-10 [facility] Comment on above: Order Comment: COLLE CTOR TO SPECIFY Performed By: #### M 100.2200, L400.0001, L400.7600 #### [facility] [address] [place], [address] WBC 25-50 SEEN Normal 0-5 [facility] Comment on above: Order Comment: COLLE CTOR TO SPECIFY Performed By: #### M 100.2200, L400.0001, L400.7600 #### [facility] [address] [place], [address] Mucus Ql (Urine sed) 0 SEEN Normal [facility] Comment on above: Order Comment: COLLE CTOR TO SPECIFY Performed By: #### M 100.2200, L400.0001, L400.7600 #### [facility] [address] [place], [address] Emergency Department Summary on 03-08-2024 Emergency Department Summary [facility] Medical Records Department [address] [place] [address] Emergency Department Summary 03/08/24 MR#: [id number] Acct: [id number] Name: BECKY HILL Rep #: [id number] : 1990 33 From: Velasquez Shah DO PCP: Care Physician,No Primary Status:DEP ER Location: ED HPI History of Present Illness Chief Complaint: Complaint Informant: patient Onset/Context/Timing Onset: Month(s) Context: Gradual Onset Timing: Continuous Quality: Burning Location: Suprapubic area, right adnexal area, and right lower back Worsened by: Nothing Relieved by: Nothing Narrative Narrative: Patient presents with dysuria that has been constant for the past few months. Patient states it feels like she has burning whenever she urinates. Patient states her pain is mainly over the suprapubic and right adnexal area. Patient states it radiates into her back. Patient admits to some nausea and vomiting. Patient denies any fevers or chills. Patient states nothing makes her symptoms worse and nothing makes them better. PFSH PFSH Medical History no medical history no medical history Home Medications ???Medication ???Instructions ???Recorded ???Last Taken ???Type clindamycin HCl 300 mg capsule 300 mg PO Q6H #40 CAPSULES 10/21/23 Unknown Rx (Cleocin HCl) naproxen 500 mg tablet 500 mg PO BID #20 tabs 10/21/23 Unknown Rx cephalexin 500 mg capsule 500 mg PO Q6 #40 CAPSULES 11/04/23 Unknown Rx phenazopyridine 200 mg tablet 200 mg PO TID 6 doses #7 tabs 11/04/23 Unknown Rx (Pyridium) nitrofurantoin 100 mg PO Q12 #10 CAPSULES 03/08/24 Unknown Rx monohydrate/macrocrysta ls 100 mg capsule Allergy/AdvReac Type Severity Reaction Status Date / Time azithromycin (From Zithromax) Allergy Itching Verified 03/08/24 07:57 sulfamethoxazole (From Allergy Itching Verified 03/08/24 07:57 Bactrim) trimethoprim (From Bactrim) Allergy Itching Verified 03/08/24 07:57 Surgical History (Updated 03/08/24 @ 08:[address] Velasquez Shah DO) History of bilateral salpingectomy Social History household members: children Smoking Status: Current every day smoker tobacco type: cigarettes substance use type: does not use ROS ROS ED Constitutional Constitutional ED: Denies chills or fever(s) Eyes Eyes: Denies blurry vision or change in vision ENT ENT ED: Denies rhinorrhea or sore throat Cardiovascular Cardiovascular: Denies chest pain or palpitations Respiratory/Chest Respiratory/Chest: Denies cough or dyspnea Gastrointestinal Gastrointestinal: Reports nausea and vomiting Genitourinary Genitourinary ED: Reports dysuria; Denies hematuria or urinary frequency Musculoskeletal Musculoskeletal: Reports back pain; Denies neck pain Integumentary Denies abscess or rash Neurologic Neurologic: Denies headache(s) or weakness Allergic/Immunologic Allergic/Immunologic ED: Denies mouth swelling or urticaria EXAM Physical Exam Const Vital Signs: 03/08/24 07:57 Temperature 97.5 F L Temperature Source Oral Pulse Rate 80 Respiratory Rate 16 Blood Pressure 109/62 Blood Pressure Mean 77 Pulse Ox 100 Oxygen Delivery Method Room Air Positive well nourished and well developed General Appearance ED: well developed and NAD HEENT Reports moist mucous membranes Neck supple and no JVD Resp normal respiratory effort and clear to auscultation bilaterally Cardio regular rate and regular rhythm GI non-distended Palpation: soft and tender RLQ and suprapubic; Negative for guarding or rebound tenderness present Extremity normal to inspection Neuro oriented x3, CN's II-XII intact bilaterally and no sensory deficits noted Sensorium / Orientation: alert Motor Exam: strength 5/5 throughout Psych mental status grossly normal MDM MDM MDM Narrative Medical decision making narrative: Differential diagnosis includes urinary tract infection, ectopic , ovarian cyst, and pyelonephritis. Urinalysis will be obtained to assess for urinary tract infection and hematuria. Urine hCG will be obtained to assess for . Lab Data Attestation: I reviewed the patient's lab results. Lab results narrative: Urinalysis was reviewed. Leukocyte esterase was 100 with 50-100 white blood cells. Occult blood was 50 there were 0 red blood cells noted. Urine hCG was reviewed and was negative. Labs: Laboratory Results - last 24 hr 03/08/24 08:26 Urine Color Yellow Urine Clarity Sl. Cloudy Urine pH 6.0 Ur Specific [place] 1.015 Urine Protein 30 H Urine Glucose (UA) Normal Urine Ketones Negative Urine Occult Blood 50 H Urine Nitrite Negative Urine Bilirubin Negative Urine Urobilinogen Normal Ur Leukocyte Trista (more content not included)... Normal [facility] ,Urineon 03-08-2024 Beta HCG ( test) Ql (U) Negative Normal [facility] Comment on above: Order Comment: ASHLEY CTOR TO SPECIFY Result Comment: Very dilute urine specimens, as indicated by a low specific gravity, may not contain hr representative levels of hCG. If is still suspected, a first morning urine specimen should be collected 48 hours later and tested. Performed By: #### L 400.7600, L400.0001 #### [facility] [address] [place], [address] Urinalysis, Completeon 03-08 WBC 50-100 SEEN Normal 0-5 [facility] Comment on above: Order Comment: ASHLEY CTOR TO SPECIFY Performed By: #### L 400.7600, L400.0001 #### [facility] [address] [place], [address] EPI,SQUAMOUS 5-10 SEEN Normal 5-10 [facility] Comment on above: Order Comment: ASHLEY CTOR TO SPECIFY Performed By: #### L 400.7600, L400.0001 #### [facility] [address] [place], [address] BACTERIA 0 SEEN Normal None Seen [facility] Comment on above: Order Comment: ASHLEY CTOR TO SPECIFY Performed By: #### L 400.7600, L400.0001 #### [facility] [address] [place], [address] Mucus Ql (Urine sed) 0 SEEN Normal [facility] Comment on above: Order Comment: ASHELY CTOR TO SPECIFY Performed By: #### L 400.7600, L400.0001 #### [facility] [address] [place], [address] RBC 0 SEEN Normal 0-5 [facility] Comment on above: Order Comment: ASHLEY CTOR TO SPECIFY Performed By: #### L 400.7600, L400.0001 #### [facility] [address] [place], [address] STREP A MOLECULAR (POC)on Procedural Control Valid [facility] Strep A (POCT) Negative Negative [facility] UA DIP, URINE (POC)on 2023 BILIRUBIN UA (POCT) Negative Negative [facility] CLARITY UA (POCT) Turbid [facility] COLOR UA (POCT) Dark yellow [facility] GLUCOSE UA (POCT) Negative Negative mg/dL [facility] Hemoglobin Ql (U) Negative Negative [facility] Interpretation and review of laboratory results Abnormal [facility] KETONE UA (POCT) Negative Negative mg/dL [facility] LE[facility]A (POCT) Negative Negative [facility] NITRITE UA (POCT) Positive Abnormal Negative [facility] PH UA (POCT) 6.5 4.5 - 8.0 [facility] Protein Ql (U) Negative Negative mg/dL [facility] SPECIFIC GRAVITY UA (POCT) 1.025 1.005 - 1.030 [facility] UROBILINOGEN UA (POCT) 1.0 Normal E.U./dL [facility] Location:[address], [address] [place] [address] POINT OF CARE [facility] Emergency Department Summary on 11-04-2023 Emergency Department Summary [facility] Medical Records Department [address] [place] [address] Emergency Department Summary 11/04/23 MR#: [id number] Acct: [id number] Name: BECKY HILL Rep #: [id number] : 1990 32 From: Matt Romero MD PCP: Care Physician,No Primary Status:REG ER Location: ED HPI History of Present Illness Chief Complaint: Complaint Detail of Chief Complaint: Dysuria x 3 days Informant: patient Onset/Context/Timing Onset: Days (Onset 3 days ago) Context: Sudden Onset Timing: Intermittent Quality: Burning sensation Location: Urethra Current Severity: Gone Maximum Severity: Severe Worsened by: Urination Associated Symptoms Associated Symptoms: Nausea and vomiting x 1 this morning Narrative Narrative: Patient is a 32-year-old female who presents with dysuria for the past 3 days. She denies hematuria or frequency. She states she was seen at the urgent care 1 month ago and told she does not have a bladder infection but had a yeast infection. Patient states she did have no vaginal rash or discharge or itching. She is status post bilateral salpingectomy. She has 3 kids. Patient states her menses are irregular. Last menses was last month. She has no symptoms of . Patient denies fever, chills or night sweats. She does complain of lower back pain. She states she has had problems with infections since age of 6. She has never seen a urologist. 1. She has allergy to sulfa and macrolides with itching. She denies history of STI. She denies history ovarian cyst or endometriosis. Prior similar symptoms: Yes Recent Illness/Hospitalization : Yes PFSH PFSH Home Medications ???Medication ???Instructions ???Recorded ???Last Taken ???Type clindamycin HCl 300 mg capsule 300 mg PO Q6H #40 CAPSULES 10/21/23 Unknown Rx (Cleocin HCl) naproxen 500 mg tablet 500 mg PO BID #20 tabs 10/21/23 Unknown Rx cephalexin 500 mg capsule 500 mg PO Q6 #40 CAPSULES 11/04/23 Unknown Rx phenazopyridine 200 mg tablet 200 mg PO TID 6 doses #7 tabs 11/04/23 Unknown Rx (Pyridium) Allergy/AdvReac Type Severity Reaction Status Date / Time azithromycin (From Zithromax) Allergy Itching Verified 11/04/23 08:40 sulfamethoxazole (From Allergy Itching Verified 11/04/23 08:40 Bactrim) trimethoprim (From Bactrim) Allergy Itching Verified 11/04/23 08:40 Social History (Updated 11/04/23 @ 08:[address] Matt Romero MD) household members: children Smoking Status: Current every day smoker tobacco type: cigarettes substance use type: does not use ROS ROS ED Constitutional Constitutional ED: Denies chills, fever(s), subjective or sweats Eyes Eyes: Denies blurry vision ENT ENT ED: Denies ear pain, rhinorrhea or sore throat Gastrointestinal Gastrointestinal: Reports nausea and vomiting; Denies abdominal pain, constipation, diarrhea or melena Genitourinary Genitourinary ED: Reports dysuria and LMP (females 10-50) Details: Comment: (End of last month); Denies hematuria or urinary frequency Musculoskeletal Musculoskeletal: Reports back pain Integumentary Denies rash Neurologic Neurologic: Denies weakness Hematologic/Lymphatic Hematologic/Lymphatic: Denies anemia, easy bleeding or easy bruising EXAM Physical Exam Const Vital Signs: 11/04/23 08:39 Temperature 96.9 F L Temperature Source Temporal Pulse Rate 62 Respiratory Rate 14 Blood Pressure 111/74 Blood Pressure Mean 86 Pulse Ox 100 Oxygen Delivery Method Room Air Positive well nourished and well developed General Appearance ED: well developed and NAD; Negative for pallor HEENT Reports moist mucous membranes HEENT Narrative: Head is atraumatic normocephalic. Ears normal. Nares patent. Mucosa moist. Eyes PERRL and EOMs intact bilaterally General Eye ED: Negative for pale conjunctiva or scleral icterus Resp normal respiratory effort and clear to auscultation bilaterally Cardio regular rate, regular rhythm, S1 normal heart sound, S2 normal heart sound and no murmurs GI normal to inspection, nondistended, normoactive bowel sounds, non-distended and no masses; Negative for non-tender or hepatosplenomegaly Palpation: soft and tender suprapubic Back/Spine General Back: CVA tenderness left Extremity normal to inspection Neuro oriented x3 and CN's II-XII intact bilaterally Sensorium / Orientation: alert Psych mental status grossly normal Skin no rashes or lesions noted, no wounds and skin turgor normal General Skin Exam: Negative for jaundice or pallor MDM MDM MDM Narrative Medical decision making narrative: Differential diagnosis would include STI, urinary tract infection, interstitial cystitis doubt yeast infection based on patient's symptoms and comments. Will obtain UA. History Record Review Additional record(s) reviewed:: Harleen (more content not included)... Normal [facility] Urinalysis, Completeon 11-03 BACTERIA 1+ /hpf Normal None Seen [facility] Comment on above: Order Comment: ASHLEY CTOR TO SPECIFY Performed By: #### L 400.0001 #### [facility] [address] [place], [place], [id number] EPI,SQUAMOUS 10-25 SEEN Normal - [facility] Comment on above: Order Comment: ASHLEY CTOR TO SPECIFY Performed By: #### L 400.0001 #### [facility] [address] [place], [address] Mucus Ql (Urine sed) 1+ /hpf Normal [facility] Comment on above: Order Comment: ASHLEY CTOR TO SPECIFY Performed By: #### L 400.0001 #### [facility] [address] [place], [address] RBC 0-5 SEEN Normal 0-5 [facility] Comment on above: Order Comment: ASHLEY CTOR TO SPECIFY Performed By: #### L 400.0001 #### [facility] [address] [place], [address] WBC 10-25 SEEN Normal 0-5 [facility] Comment on above: Order Comment: ASHLEY CTOR TO SPECIFY Performed By: #### L 400.0001 #### [facility] [address] [place], [address] Emergency Department Summary on 10-21-2023 Emergency Department Summary [facility] Medical Records Department [address] [facility] [place] [address] Emergency Department Summary 10/21/23 MR#: [id number] Acct: [id number] Name: BECKY HILL Rep #: [id number] : 1990 32 From: Gabriel Mitchell DO PCP: Care Physician,No Primary Status:DEP ER Location: ED HPI History of Present Illness Chief Complaint: Dental Detail of Chief Complaint: Dental pain Narrative Narrative: Patient presents with right lower dental pain that started 2 days ago. She describes some swelling to her gum. He denies fevers or chills or sweats. Patient does not have primary care physician or dentist currently. She denies any trauma to her teeth. [facility] Medications ???Medication ???Instructions ???Recorded ???Last Taken ???Type clindamycin HCl 300 mg capsule 300 mg PO Q6H #40 CAPSULES 10/21/23 Unknown Rx (Cleocin HCl) naproxen 500 mg tablet 500 mg PO BID #20 tabs 10/21/23 Unknown Rx Allergy/AdvReac Type Severity Reaction Status Date / Time azithromycin (From Zithromax) Allergy Itching Verified 12/15/19 12:40 sulfamethoxazole (From Allergy Itching Verified 02/18/17 15:08 Bactrim) trimethoprim (From Bactrim) Allergy Itching Verified 02/18/17 15:08 Social History Smoking Status: Current every day smoker tobacco type: cigarettes ROS ROS ED Review of Systems ROS Unobtainable: other Constitutional Constitutional ED: Reports lethargy; Denies chills, fever(s), sweats or weight loss Eyes Eyes: Denies blurry vision, change in vision or diplopia ENT ENT ED: Reports other Details: Dental pain ; Denies rhinorrhea or sore throat Cardiovascular Cardiovascular: Denies chest pain, orthopnea or racing heartbeat Respiratory/Chest Respiratory/Chest: Denies cough, dyspnea, dyspnea on exertion, orthopnea or sputum Gastrointestinal Gastrointestinal: Denies abdominal pain, diarrhea, nausea or vomiting Genitourinary Genitourinary ED: Denies dysuria, hematuria or urinary frequency Musculoskeletal Musculoskeletal: Denies arthralgias, back pain, myalgias or neck pain Integumentary Denies abscess, Abrasions or rash Neurologic Neurologic: Denies headache(s) or weakness Psychiatric Psychiatric: Denies anxiety, depression or suicidal thoughts Endocrine Endocrinology: Denies polydipsia, polyphagia or polyuria Hematologic/Lymphatic Hematologic/Lymphatic: Denies easy bleeding, easy bruising or lymphadenopathy Allergic/Immunologic Allergic/Immunologic ED: Denies mouth swelling, tongue swelling or urticaria EXAM Physical Exam Const Vital Signs: 10/21/23 09:02 Temperature 96.7 F L Temperature Source Temporal Pulse Rate 76 Respiratory Rate 16 Blood Pressure 115/74 Blood Pressure Mean 87 Pulse Ox 100 Oxygen Delivery Method Room Air Positive well nourished and well developed General Appearance ED: well developed and NAD HEENT Reports TM's clear and moist mucous membranes HEENT Narrative: Dentition-patient has tenderness palpation over right lower molar #31. I do not appreciate any gingival erythema or abscess. No trismus on exam. No facial erythema or cellulitic changes noted. normocephalic and atraumatic; Negative for trauma or tenderness Tympanic Membrane ED: Yes TM's clear Eyes PERRL and EOMs intact bilaterally General Eye ED: Negative for pale conjunctiva or scleral icterus Neck no lymphadenopathy, supple and no JVD General: Negative for tenderness Chest Wall inspection of chest normal and palpation of chest normal Chest: Negative for tenderness Resp normal respiratory effort and clear to auscultation bilaterally Effort and Inspection: Negative for respiratory distress or pain with movement Auscultation: Negative for rhonchi, wheezes or diminished lung sounds Cardio regular rate, regular rhythm, S1 normal heart sound, S2 normal heart sound and no murmurs Peripheral Pulses: pulses 2+ throughout GI normal to inspection, nondistended, normoactive bowel sounds, soft to palpation, non-tender, non- distended and no masses Back/Spine no CVA tenderness and no thoracic nor lumbar tenderness Extremity normal to inspection General Extremety ED: Negative for edema General Extremity: Negative for edema Neuro oriented x3, CN's II-XII intact bilaterally, no sensory deficits noted and gait normal Sensorium / Orientation: awake, alert, oriented to person, oriented to place and oriented to time Motor Exam: strength 5/5 throughout and strength abnormal Psych mental status grossly normal Skin no rashes or lesions noted and no wounds MDM MDM MDM Narrative Medical decision making narrative: Patient with dental pain without evidence of fever or significant swelling. Will start on clindamycin. She does have a broken and carry tooth #31 that is tender to palpation. Will give her naproxen (more content not included)... Normal [facility] BACTERIAL VAGINOSIS NAATon 0 09-05-2023 Lactobacillus crispatus+gasseri+j ensenii + Gardnerella vaginalis + Atopobium vaginae rRNA YAIR+probe Ql (Vag fld) Negative Negative for bacterial vaginosis [facility] UA DIP, URINE (POC)on 2023 BILIRUBIN UA (POCT) Negative Negative [facility] CLARITY UA (POCT) Slightly Cloudy Cl [facility] COLOR UA (POCT) Light yellow [facility] GLUCOSE UA (POCT) Negative Negative mg/dL [facility] Hemoglobin Ql (U) Trace-intact Abnormal Negative [facility] KETONE UA (POCT) Negative Negative mg/dL [facility] LEUKOCYTES UA (POCT) Small Abnormal Negative [facility] NITRITE UA (POCT) Negative Negative [facility] PH UA (POCT) 5.5 4.5 - 8.0 [facility] Protein Ql (U) Negative Negative mg/dL [facility] SPECIFIC GRAVITY UA (POCT) 1.025 1.005 - 1.030 [facility] UROBILINOGEN UA (POCT) 0.2 E.U./dL Normal E.U./dL [facility] EMERGENCY REPORTon 2 EMERGENCY REPORT [facility] EMERGENCY ROOM REPORT NAME ACCOUNT SEX AGE ADMIT DISCHARGE PT MED. RECORD# NUMBER DATE DATE TYPE BECKY HILL [id number] F 30 11/17/21 11/17/21 3 D [id number] ROOM: ER DATE OF : 1990 DICTATING PHYSICIAN: Dong Meehan Date seen is November 17, 2021 at 1935 hours. HISTORY OF PRESENT ILLNESS: The patient is a 30-year-old female complaining of flu like symptoms for the past 2 days. She states the symptoms started yesterday morning. She states she is hot one minute and then cold the next. She does complain of some diffuse generalized body aches. She has vomited twice. She still feels nauseated. She has had a little bit of diarrhea, and she thinks she has a bladder infection as well. She has had bladder infections in the past, and she has complained of some burning and frequency with urination. She states that her mouth is dry. She states all she does is sleep. She is a smoker, but she denies any shortness of breath. She has not had the COVID-19 vaccine. She does have 3 children at home. She does not have a primary care physician. PAST MEDICAL HISTORY: Past medical history of previous urinary tract infections. PAST SURGICAL HISTORY: D&C. She did have her fallopian tubes removed after the of her last child. That was back in 2019. ALLERGIES: She is allergic to Bactrim and Zithromax. SOCIAL HISTORY: She is a smoker half of pack per day. She does admit to some occasional alcohol use. She denies any drug use. She lives at home with family. REVIEW OF SYSTEMS: The patient denies any chest pain, shortness of breath. She does admit to an occasional cough. She denies any wheezing. She denies any abdominal pain, but does admit to some nausea and vomiting. She does admit to a small amount of diarrhea. She denies any constipation, melena, hematochezia. She does admit some urinary burning and frequency. She denies any hematuria. She does complain of a diffuse generalized headache, as well as diffuse generalized body aches, but denies any skin or swelling, hives, hayfever, or swollen glands. She does admit to fevers, sweats, and chills. Further review of systems is negative. PHYSICAL EXAMINATION: VITAL SIGNS: Temperature is 100.8, pulse 89, respiratory rate 18, blood pressure 116/93, pulse oximetry 95% on room air, weight 109 pounds. GENERAL APPEARANCE: The patient is alert and oriented x3. She presently appears in no acute distress. She is pleasant and cooperative. She makes eye contact. She Page 1 of 3 [facility] Report BECKY HILL : 1990 speaks in full sentences. HEENT: Head appears atraumatic. Pupils are equal and reactive to light. Red reflex intact bilaterally. Extraocular muscles are intact. No conjunctival injection. No scleral icterus or lid edema. Ears: TMs intact bilaterally. No erythema noted. Nose: Exhibits no rhinorrhea or epistaxis. Mouth: Mucous membranes are mildly dry. No pharyngeal erythema. Uvula is midline and elevates. NECK: Neck is supple. Trachea is midline. No JVD or lymphadenopathy. No posterior cervical tenderness. No nuchal rigidity. LUNGS: Clear to auscultation bilaterally anteriorly, somewhat diminished bibasilar. No crackles or wheezing noted. No accessory muscle use noted. CV: Heart rate and rhythm are regular without murmur. ABDOMEN: Abdomen is soft and nontender with normoactive bowel sounds x4 quadrants. No guarding or rigidity. No rebound. No palpable abdominal masses. No hepatosplenomegaly. BACK: Back exhibits no midline or paraspinal region tenderness. No increased paraspinal muscle rigidity. Negative Roni's sign. EXTREMITIES: No edema or cyanosis. Peripheral pulses are intact. No motor or sensory deficits are noted. Hand machine assistant are strong and symmetric. SKIN: Skin is warm and dry. No diaphoresis or rash. NEUROLOGIC: Neurologic examine shows the patient to be alert and oriented x4. No motor or sensory deficits are noted. Normal speech. No conversational dyspnea. DIAGNOSTIC DATA: White count was 2.3, hemoglobin 13.3, hematocrit 40.2, and platelet count was 88,000. Sodium was 136, potassium 3.6, chloride 102, CO2 29, BUN 13, creatinine 0.96. Glucose is 80. AST is 48, ALT 48, and alkaline phosphatase 57. Total bilirubin is 0.3. Anion gap is normal at 9. Urinalysis was cloudy, and it did show 4+ bacteria and 1 to 5 white cells per high-powered field, so I did send that for a urine culture, and I gave the patient 1 gram of Rocephin. Her test came back negative. Her COVID-19 swab came back positive. Her influenza swab is still pending. I did look at her chest x-ray. I see no acute infiltrate or failure. EMERGENCY DEPARTMENT COURSE AND TREATMENT: The patient's pulse oximetry has remained 95% on room air. She clinically does not look to be in any distress. I did give her some IV fluids here, as well as Toradol for the pain and fever and some Zofran for the (more content not included)... Normal [facility] CBC + DIFFon 11-17-2021 Baso # 0.00 x10EE3/UL Normal 0.00 - 0.10 [facility] Comment on above: Performed By: #### 2 [id number] #### [facility],[address] [place] [address] 40960 Basophils/100 WBC (Bld) 0.5 % Normal 0.0 - 2.0 [facility] Comment on above: Performed By: #### 2 71104 #### [facility],[address] [place] [address] 30857 CBC + DIFF Normal [facility] Comment on above: Result Comment: CBC- COMPLETE BLOOD COUNT Performed By: #### 2 44165 #### [facility],[address] [place] [address] 00635 EO # 0.00 x10EE3/UL Normal 0.00 - 0.50 [facility] Comment on above: Performed By: #### 2 21391 #### [facility],[address] [place] [address] 07985 Eosinophils/100 WBC (Bld) 0.6 % Normal 0.0 - 7.0 [facility] Comment on above: Performed By: #### 2 46337 #### [facility],[address] [place] [address] 58345 Erythrocyte distribution width (RBC) [Ratio] 14.4 % Normal 12.0 - 15.6 [facility] Comment on above: Performed By: #### 2 82786 #### [facility],[address] [place], [place] [id number] Hematocrit (Bld) [Volume fraction] 40.2 % Normal 34.0 - 46.0 [facility] Comment on above: Performed By: #### 2 33564 #### [facility],[address] [place] [address] Hemoglobin (Bld) [Mass/Vol] 13.3 g/dL Normal 12.0 - 16.0 [facility] Comment on above: Performed By: #### 2 54725 #### [facility],[address] [place] [address] Lymph # 0.70 x10EE3/UL Low 0.80 - 2.80 [facility] Comment on above: Performed By: #### 2 36342 #### [facility],[address] [place] [address] Lymphocytes/100 WBC (Bld) 31.4 % Normal 20.0 - 45.0 [facility] Comment on above: Performed By: #### 2 71290 #### [facility],[address] [place], [place] [id number] MANUAL DIFF N/A Normal [facility] Comment on above: Performed By: #### 2 39078 #### [facility],[address] [place], [place] [id number] MCH (RBC) [Entitic mass] 30 pg Normal 27 - 33 [facility] Comment on above: Performed By: #### 2 38552 #### [facility],[address] [place], [place] [id number] MCHC 33 X10 3 Normal 32 - 36 [facility] Comment on above: Performed By: #### 2 00897 #### [facility],[address] [place], [place] [id number] MCV (RBC) [Entitic vol] 91 fL Normal 80 - 99 [facility] Comment on above: Performed By: #### 2 29327 #### [facility],[address] [place] [address] 43273 [place] # 0.30 x10EE3/UL Normal 0.20 - 1.00 [facility] Comment on above: Performed By: #### 2 38968 #### [facility],[address] [place] [address] 14392 MONOS % 14.4 % High 0.0 - 10.0 [facility] Comment on above: Performed By: #### 2 14151 #### [facility],[address] [place] [address] 77643 Morphology Ken (Bld) [Interp] N/A Normal [facility] Comment on above: Result Comment: {CD] Performed By: #### 2 42002 #### [facility],[address] [place] [address] 72336 Neut # 1.20 x10EE3/UL Low 1.50 - 7.10 [facility] Comment on above: Performed By: #### 2 35585 #### [facility],[address] [place] [address] 10231 Neutrophils/100 WBC (Bld) 53.1 % Normal 46.0 - 76.0 [facility] Comment on above: Performed By: #### 2 42852 #### [facility],[address] [place] [address] 53303 PLATELET 88 x10EE3/UL Low 150 - 450 [facility] Comment on above: Performed By: #### 2 09809 #### [facility],[address] [place] [address] 22899 Platelet mean volume (Bld) [Entitic vol] 9.4 fL Normal 6.6 - 10.5 [facility] Comment on above: Result Comment: AUTO MATED DIFFERENTIAL Performed By: #### 2 13760 #### [facility],[address] [place] [address] 51607 RBC 4.41 x 10EE6/UL Normal 4.10 - 5.30 [facility] Comment on above: Performed By: #### 2 36233 #### [facility],[address] [place] [address] 20962 WBC 2.3 x 10EE3/UL Low 4.5 - 10.8 [facility] Comment on above: Performed By: #### 2 01083 #### [facility],[address] [place] [address] 27385 CHEST 1 VIEWon 11-17-2021 CHEST 1 VIEW [place] [address] Patient: BECKY HILL Phone#: : 1990 Age: 30 Gender: F Pt. Type: ER Account: [id number] Location: [facility] Ordering: DONG MEEHAN Exam Date: 11/17/2021/20:17 Family Phys: NO DOCTOR Charge Code: [id number] Physician: Gentry Order #: [id number] DLP Dose#: PROCEDURE: X-RAY CHEST 1 VIEW COMPARISON: [facility], XR, CHEST 2 VIEWS, 05/16/2019, 17:07. INDICATIONS: Pneumonia. FINDINGS: LUNGS: COPD. No significant pulmonary parenchymal abnormalities. VASCULATURE: Normal. Unremarkable pulmonary vasculature. CARDIAC: Normal. No cardiac silhouette abnormality or cardiomegaly. MEDIASTINUM: Normal. No visible mass or adenopathy. PLEURA: Normal. No effusion or pleural thickening. BONES: Normal. No fracture or visible bony lesion. OTHER: Negative. CONCLUSION: No acute disease. COPD Dictated by: Kat Phillips MD on 11/18/2021 at 18:35 Approved by: Kat Phillips MD on 11/18/2021 at 18:35 Normal [facility] CMP with eGFRon 11-17-2021 AGE 30 years Normal [facility] Comment on above: Performed By: #### 2 06217 #### [facility],[address] [place] [address] 29513 Albumin [Mass/Vol] 3.8 g/dL Normal 3.4 - 5.0 [facility] Comment on above: Performed By: #### 2 59343 #### [facility],[address] [place] [address] 36435 Albumin/Globulin [Mass ratio] 1.2 {ratio} Normal 0.9 - 1.6 [facility] Comment on above: Performed By: #### 2 57698 #### [facility],[address] [place] [address] 16427 ALK PHOS 57 U/L Normal 46 - 116 [facility] Comment on above: Performed By: #### 2 00296 #### [facility],[address] [place] [address] 98663 ALT [Catalytic activity/Vol] 48 U/L Normal 14 - 59 [facility] Comment on above: Performed By: #### 2 56988 #### [facility],[address] [place] [address] 14625 Anion gap [Moles/Vol] 9 mmol/L Low 10 - 20 [facility] Comment on above: Performed By: #### 2 73252 #### [facility],[address] [place] [address] 75855 AST [Catalytic activity/Vol] 48 U/L High 13 - 39 [facility] Comment on above: Performed By: #### 2 27697 #### [facility],[address] [place] [address] 36334 B/C RATIO 14 ratio Normal 0 - 30 [facility] Comment on above: Performed By: #### 2 81374 #### [facility],[address] [place] [address] 83523 Bilirubin [Mass/Vol] 0.3 mg/dL Normal 0.2 - 1.0 [facility] Comment on above: Performed By: #### 2 33425 #### [facility],[address] [place], [place] [id number] Calcium [Mass/Vol] 8.6 mg/dL Normal 8.5 - 10.1 [facility] Comment on above: Performed By: #### 2 65048 #### [facility],[address] [place], [place] [address] Chloride [Moles/Vol] 102 mmol/L Normal 98 - 107 [facility] Comment on above: Performed By: #### 2 01582 #### [facility],[address] [place] [address] 28104 CMP with eGFR Normal [facility] Comment on above: Result Comment: COMP REHENSIVE METABOLIC PANEL Performed By: #### 2 57533 #### [facility],[address] [place], [place] [id number] CO2 [Moles/Vol] 29.0 mmol/L Normal 21.0 - 32.0 [facility] Comment on above: Performed By: #### 2 29600 #### [facility],[address] [place], [place] [address] Creatinine [Mass/Vol] 0.96 mg/dL Normal 0.55 - 1.02 [facility] Comment on above: Performed By: #### 2 81796 #### [facility],[address] [place] [address] 53734 GFR/1.73 sq M.predicted among non-blacks MDRD (S/P/Bld) [Vol rate/Area] mL/min/{1.73_m2} Normal 60 - 999 [facility] Comment on above: Performed By: #### 2 81319 #### [facility],[address] [place] [address] Result Comment: ACCO RDING TO THE NATIONAL KIDNEY DISEASE EDUCATION PROGRAM(NKDE), A NORMAL eGFR IS A VALUE GREATER THAN OR EQUAL TO 60 ML/MIN/1.73 SQ METERS. CHRONIC KIDNEY DISEASE: <60mL/MIN/1.73 SQ METERS KIDNEY FAILURE: <15mL/MIN/1.73 SQ METERS THIS TEST SHOULD ONLY BE USED FOR PATIENTS 18 YEARS OF AGE AND OLDER. Globulin (S) [Mass/Vol] 3.2 g/dL Normal 1.5 - 3.8 [facility] Comment on above: Performed By: #### 2 19997 #### [facility],[address] [place] [address] 80015 Glucose [Mass/Vol] 80 mg/dL Normal 74 - 106 [facility] Comment on above: Performed By: #### 2 98227 #### [facility],[address] [place] [address] 92686 Potassium [Moles/Vol] 3.6 mmol/L Normal 3.5 - 5.1 [facility] Comment on above: Performed By: #### 2 96040 #### [facility],[address] [place] [address] 15350 Protein [Mass/Vol] 7.0 g/dL Normal 6.4 - 8.2 [facility] Comment on above: Performed By: #### 2 57494 #### [facility],[address] [place] [address] 11187 Sodium [Moles/Vol] 136 mmol/L Normal 136 - 145 [facility] Comment on above: Performed By: #### 2 11071 #### [facility],[address] [place] [address] 21713 Urea nitrogen [Mass/Vol] 13 mg/dL Normal 7 - 18 [facility] Comment on above: Performed By: #### 2 05845 #### [facility],[address] [place] [address] 61178 CORONAVIRUS (SARS) ANTIGEN T ESTon 11-17-2021 EXTERNAL QC DONE? YES Normal [facility] Comment on above: Performed By: #### 2 33421 #### [facility],[address] [place] [address] 63117 INTERNAL CONTROL PASS Normal [facility] Comment on above: Performed By: #### 2 04960 #### [facility],[address] [place] [address] SARS ANTIGEN Positive Abnormal NORMAL: NEGATIVE [facility] Comment on above: Result Comment: { CA LLED TO BRIT { READ BACK BY EML Performed By: #### 2 24884 #### [facility],[address] [place] [address] SEND TO IC? YES Normal [facility] Comment on above: Result Comment: SARS -CoV-2 THIS TEST IS BEING USED UNDER THE FDA EUA PROCEDURE. THIS ASSAY HAS BEEN VALIDATED AT [facility] FOR USE WITH NASAL AND NASOPHARYNGEAL SWAB SPECIMENS. INTERPRETIVE DATA TEST RESULTS SHOULD ALWAYS BE CONSIDERED IN THE CONTEXT OF CLINICAL OBSERVATIONS AND EPIDEMIOLOGICAL DATA IN MAKING FINAL DIAGNOSIS AND PATIENT MANAGEMENT DECISIONS. PATIENT MANAGEMENT SHOULD FOLLOW CURRENT CDC GUIDELINES. THE ANUPAMA SARS ANTIGEN JAMIE DOES NOT DIFFERENTIATE BETWEEN SARS-CoV & SARS-CoV-2. A POSITIVE TEST RESULT INDICATES THE PRESENCE OF SARS-CoV-2 NUCLEOCAPSID PROTEIN ANTIGEN, AND THE PATIENT IS INFECTED WITH THE VIRUS AND PRESUMED TO BE CONTAGIOUS. A NEGATIVE TEST RESULT FOR THIS TEST MEANS THAT SARS-CoV-2 NUCLEOCAPSID PROTEIN ANTIGEN WAS NOT PRESENT IN THE SPECIMEN ABOVE THE LIMIT OF DETECTION. HOWEVER, A NEGATIVE RESULT DOES NOT RULE OUT COVID-19 AND SHOULD NOT BE USED THE SOLE BASIS FOR TREATMENT OR PATIENT MANAGEMENT DECISIONS. A NEGATIVE RESULT DOES NOT EXCLUDE THE POSSIBILITY OF COVID-19. NEGATIVE RESULTS, FROM PATIENTS WITH SYMPTOM ONSET BEYOND FIVE DAYS, SHOULD BE TREATED PRESUMPTIVE AND CONFIRMATION WITH A MOLECULAR ASSAY, IF NECESSARY, FOR PATIENT MANAGEMENT, MAY BE PERFORMED. WHEN DIAGNOSTIC TESTING IS NEGATIVE, THE POSSIBLILTY OF A FALSE NEGATIVE RESULT SHOULD BE CONSIDERED IN THE CONTEXT OF A PATIENT'S RECENT EXPOSURES AND THE PRESENCE OF CLINICAL SIGNS AND SYMPTOMS CONSISTENT WITH COVID-19. THE POSSIBILITY OF A FALSE NEGATIVE RESULT SHOULD ESPECIALLY BE CONSIDERED IF THE PATIENT'S RECENT EXPOSURES OR CLINICAL PRESENTATION INDICATE THAT COVID-19 IS LIKELY, AND DIAGNOSTIC TESTS FOR OTHER CAUSES OF ILLNESS (e.g., OTHER RESPIRATORY ILLNESS) ARE NEGATIVE. IF COVID-19 IS STILL SUSPECTED BASED ON EXPOSURE HISTORY TOGETHER WITH OTHER CLINICAL FINDINGS, RE-TESTING SHOULD BE CONSIDERED BY HEALTHCARE PROVIDERS IN CONSULTATION WITH PUBLIC HEALTH AUTHORITIES. Performed By: #### 2 87591 #### [place] [address] CULTURE URINEon 11-17-2021 CULTURE URINE CULTURE URINE _URINE CULTURE_ M I C R O B I O L O G Y R E P O R T FINAL Antimicrobial Susceptibility and Organism Identification Report Specimen Number : [id number] Requested : 11/17/21 Specimen Source : URINE Collected : 11/17/21 19:43 [facility] : EMERGENCY ROOM Received : 11/17/21 19:43 Requesting Physician : SHEFALI Patient/Specimen Tests and Comments Specimen Comments FINAL REPORT: URINE COLONY COUNT: [id number] CFU/CC >OR=TO 3 COLONY TYPES PROBABLE CONTAMINATION Tech : ___ Source : URINE ID # : [id number] FINAL Report Date : / / : Collected : 11/17/21 19:43 11/20/21.1315.[id number]. 11/19/21.1602.KLS. 11/20/21.1316.BKO.COMPL ETE Normal [facility] Comment on above: Performed By: #### 2 19590 ####[facility],[address] [place] [address] INFLUENZA VIRUS RAPID A/Bon 11-17-2021 INFLUENZA VIRUS RAPID A/B INFLUENZA A NEGATIVE INFLUENZA B NEGATIVE INTERNAL NEG QC PASS INTERNAL POS QC PASS EXTERNAL QC DONE? YES SEND TO IC? NO A NEGATIVE TEST RESULT DOES NOT EXCLUDE INFECTION WITH INFLUENZA A OR B. THEREFORE, THE RESULTS OBTAINED FROM THIS FLU TEST SHOULD BE USED IN CONJUCTION WITH CLINICAL FINDINGS TO MAKE AN ACCURATE DIAGNOSIS. A POSITIVE RESULT DOES NOT RULE OUT CO-INFECTIONS WITH OTHER PATHOGENS OR IDENTIFY ANY SPECIFIC INFLUENZA A VIRUS SUBTYPE.CO-INFECTION WITH INFLUENZA A AND B IS RARE. IT IS RECOMMENDED THAT DUAL POSITIVE RESULTS BE CONFIRMED BY VIRAL CULTURE OR AN FDA-CLEARED INFLUENZA A AND B MOLECULAR ASSAY. INDIVIDUALS WHO HAVE RECEIVED NASALLY ADMINISTERED INFLUENZA A VACCINE MAY TEST POSITIVE IN COMMERCIALLY AVAILABLE INFLUENZA RAPID DIAGNOSTIC TESTS FOR UP TO THREE DAYS. [facility] Comment on above: Performed By: #### 2 17465 #### [facility],[address] [place] [address] SERUM QUALon 11-17 EXTERNAL QC DONE? YES [facility] Comment on above: Performed By: #### 2 65193 #### [facility],[address] [place] [address] INTERNAL QC PASS [facility] Comment on above: Performed By: #### 2 14810 #### [facility],[address],[place] [address] SER Negative Normal NEGATIVE [facility] Comment on above: Performed By: #### 2 45613 #### [facility],[address] [place] [address] 41243 URINALYSIS WITH MICROSCOPYon 11-17-2021 Amorphous 3+ Normal [facility] Comment on above: Performed By: #### 2 18680 #### [facility],[address] [place], [place] [id number] Bacteria 4+ Normal [facility] Comment on above: Performed By: #### 2 84501 #### [facility],[address] [place] [address] 10281 Bilirubin Ql (U) Negative Normal NORMAL: NEGATIVE [facility] Comment on above: Performed By: #### 2 05217 #### [facility],[address] [place], [place] [id number] Casts NONE Normal [facility] Comment on above: Performed By: #### 2 23769 #### [facility],[address] [place], [place] [id number] Clarity (U) sl.cloudy Normal NORMAL: CLEAR [facility] Comment on above: Performed By: #### 2 56511 #### [facility],[address] [place] [address] 21770 Color (U) yellow Normal NORMAL: YELLOW [facility] Comment on above: Performed By: #### 2 96216 #### [facility],[address] [place] [address] 60494 Crystals LM Nom (Urine sed) NONE Normal [facility] Comment on above: Performed By: #### 2 74018 #### [facility],[address] [place] [address] 29577 Epi Cells MODERATE Normal [facility] Comment on above: Performed By: #### 2 39097 #### [facility],[address] [place] [address] 41034 Glucose Ql (U) NORM Normal NORMAL: NORMAL [facility] Comment on above: Performed By: #### 2 51164 #### [facility],[address] [place] [address] 25740 Hemoglobin Ql (U) 50 Abnormal NORMAL: NEGATIVE [facility] Comment on above: Performed By: #### 2 69985 #### [facility],[address] [place] [address] 83158 Ketone Negative Normal NORMAL: NEGATIVE [facility] Comment on above: Performed By: #### 2 56204 #### [facility],[address] [place] [address] 98026 Leukocytes Negative Normal NORMAL: NEGATIVE [facility] Comment on above: Result Comment: URIN E MICROSCOPIC Performed By: #### 2 26420 #### [facility],[address] [place] [address] Mucous 2+ Normal [facility] Comment on above: Performed By: #### 2 30190 #### [facility],[address] [place] [address] 46321 Nitrite Ql (U) Negative Normal NORMAL: NEGATIVE [facility] Comment on above: Performed By: #### 2 42665 #### [facility],[address] [place] [address] 64491 pH (U) 7 [pH] Normal NORMAL: 5.0-8.0 [facility] Comment on above: Performed By: #### 2 63953 #### [facility],[address] [place] [address] 93530 Protein Ql (U) 100 Abnormal NORMAL: NEGATIVE [facility] Comment on above: Performed By: #### 2 30890 #### [facility],[address] [place] [address] 80380 Rbc NONE Normal 0-3 / hpf [facility] Comment on above: Performed By: #### 2 81281 #### [facility],[address] [place], [place] [id number] Sp [place] 1.010 Normal NORMAL: 1.010-1.030 [facility] Comment on above: Performed By: #### 2 92266 #### [facility],[address] [place] [address] Specimen Type R Normal [facility] Comment on above: Performed By: #### 2 01460 #### [facility],[address] [place] [address] URINALYSIS WITH MICROSCOPY Normal [facility] Comment on above: Result Comment: URIN ALYSIS Performed By: #### 2 05650 #### [facility],[address] [place] [address] Urobilinog 4 Abnormal NORMAL: NORMAL [facility] Comment on above: Performed By: #### 2 [id number] #### [facility],[address] [place] [address] Wbc 1-5 Normal 0-5 / hpf [facility] Comment on above: Performed By: #### 2 [id number] #### [facility],[address] [place] [address] Yeast NONE Normal [facility] Comment on above: Performed By: #### 2 [id number] #### [facility],[address] [place] [address] EMERGENCY REPORTon 1 EMERGENCY REPORT [facility] EMERGENCY ROOM REPORT NAME ACCOUNT SEX AGE ADMIT DISCHARGE PT MED. RECORD# NUMBER DATE DATE TYPE [facility] [facility] [id number] F 30 12/08/20 12/08/20 3 D 11520 ROOM: ER DATE OF : 1990 DICTATING PHYSICIAN: Aiyana Salguero CHIEF COMPLAINT: Possible urinary tract and bladder infection. HISTORY OF PRESENT ILLNESS: This is a 30-year-old female who complains of dysuria or frequency for the past 2 days. She denies . She denies any vaginal discharge or bleeding otherwise. She has a history of recurrent UTIs but denies any fever or chills. She has had no nausea or vomiting. She denies any flank pain. PAST MEDICAL HISTORY: Significant for previous urinary tract infections and previous pregnancies. SOCIAL HISTORY: Positive for smoking. She denies any alcohol consumption. REVIEW OF SYSTEMS: ENT: Unremarkable. Pulmonary: No cough. Cardiac: No chest pain. Abdomen: No nausea or vomiting. Urinary: Positive for dysuria. DENTOFACIAL ORTHOPEDICS DENTIST: No vaginal bleeding. All other review of systems were normal or negative. PHYSICAL EXAMINATION: She is awake, alert, coherent and cooperative. Vital signs are stable. She is afebrile. Head is normocephalic. Eyes are equal, round and reactive. Ears are clear. Oropharynx shows moist mucous membranes. Neck with no nuchal rigidity or adenopathy. Lungs are clear to auscultation and percussion. Heart: Regular rate and rhythm. Abdomen: Soft and pliable, nontender. There is no rebound, guarding, organomegaly or masses. Skin: Warm and dry without rash. Musculoskeletal: She has good muscle tone. Lymphatic: No enlargement or engorgement. DIAGNOSTIC DATA: Urinalysis showed 16-25 white cells per high-powered field. test was negative. EMERGENCY DEPARTMENT COURSE AND TREATMENT: Keflex 500 mg 4 times a day and Pyridium 200 mg three times a day. Drink plenty of fluids and follow up with her CASH TELLER or primary care physician in 7 to 10 days. DIAGNOSIS: Acute urinary tract infection. Page 1 of 2 [facility] Emergency Room Report [place] : 1990 Dictated By: Aiyana Salguero MD 12/08/20 10:07 JOB #: [id number] Transcribed By: ignacia 12/09/20 10:24 Electronically signed by: Aiyana Salguero M.D. 12/28/20 07:38 Page 2 of 2 [facility] Emergency Room Report Normal [facility] CULTURE URINEon 12-08-2020 CULTURE URINE CULTURE URINE _URINE CULTURE_ M I C R O B I O L O G Y R E P O R T FINAL Antimicrobial Susceptibility and Organism Identification Report Specimen Number : [id number] Requested : 12/08/20 Specimen Source : URINE Collected : 12/08/20 09:23 [facility] of Isolation : EMERGENCY ROOM Received : 12/08/20 09:23 Requesting Physician : ANGELA BRONSON Patient/Specimen Tests and Comments Specimen Comments FINAL REPORT: NO GROWTH AT 48 HOURS Tech : ___ Source : URINE ID # : [id number] FINAL Report Date : / / : Collected : 12/08/20 09:23 12/10/20.1155.SHARATH. 12/09/20.1446.SHARATH. 12/10/20.1155.GRACIES.COMPL ETE Normal [facility] Comment on above: Performed By: #### 2 [id number] #### [facility],[address] [place] [id number] URINEon 12-08-2020 Beta HCG ( test) Ql (U) Negative Normal NEGATIVE [facility] Comment on above: Performed By: #### 2 [id number] #### [facility],[address] [place] [address] EXTERNAL QC DONE? YES Normal [facility] Comment on above: Performed By: #### 2 [id number] #### [facility],[address] [place] [address] INTERNAL QC PASS Normal [facility] Comment on above: Performed By: #### 2 [id number] #### [facility],[address] [place] [address] [id number] URINALYSISon 12-08-2020 Amorphous NONE Normal [facility] Comment on above: Performed By: #### 2 [id number] #### [facility],[address] [place] [address] 15942 Bacteria 2+ Normal [facility] Comment on above: Performed By: #### 2 [id number] #### [facility],[address] [place] [address] 11618 Bilirubin Ql (U) Negative Normal NORMAL: NEGATIVE [facility] Comment on above: Performed By: #### 2 [id number] #### [facility],[address] [place] [address] 84611 Casts NONE Normal [facility] Comment on above: Performed By: #### 2 [id number] #### [facility],[address] [place] [address] 98514 Clarity (U) clear Normal NORMAL: CLEAR [facility] Comment on above: Performed By: #### 2 88618 #### [facility],[address] [place] [address] 73147 Color (U) yellow Normal NORMAL: YELLOW [facility] Comment on above: Performed By: #### 2 [id number] #### [facility],[address] [place] [address] [id number] Crystals LM Nom (Urine sed) NONE Normal [facility] Comment on above: Performed By: #### 2 61306 #### [facility],[address] [place] [address] 21729 Epi Cells MANY Normal [facility] Comment on above: Performed By: #### 2 47040 #### [facility],[address] [place] [address] 40656 Glucose Ql (U) NORM Normal NORMAL: NORMAL [facility] Comment on above: Performed By: #### 2 [id number] #### [facility],[address] [place] [address] 45469 Hemoglobin Ql (U) 10 Abnormal NORMAL: NEGATIVE [facility] Comment on above: Performed By: #### 2 80633 #### [facility],[address] [place] [address] 34475 Ketone 5 Abnormal NORMAL: NEGATIVE [facility] Comment on above: Performed By: #### 2 13281 #### [facility],[address] [place] [address] 17332 Leukocytes 500 Abnormal NORMAL: NEGATIVE [facility] Comment on above: Performed By: #### 2 61100 #### [facility],[address] [place] [address] 95543 Mucous NONE Normal [facility] Comment on above: Performed By: #### 2 [id number] #### [facility],[address] [place] [address] 45806 Nitrite Ql (U) Negative Normal NORMAL: NEGATIVE [facility] Comment on above: Performed By: #### 2 [id number] #### [facility],[address] [place] [address] 45766 pH (U) 5 [pH] Normal NORMAL: 5.0-8.0 [facility] Comment on above: Performed By: #### 2 [id number] #### [facility],[address] [place] [address] Protein Ql (U) Negative Normal NORMAL: NEGATIVE [facility] Comment on above: Performed By: #### 2 77438 #### [facility],[address] [place] [address] Rbc NONE Normal 0-3/hpf [facility] Comment on above: Performed By: #### 2 29338 #### [facility],[address] [place] [address] Sp [place] 1.020 Normal NORMAL: 1.010-1.030 [facility] Comment on above: Performed By: #### 2 24445 #### [facility],[address] [place] [address] Specimen Type UNSPECIFIED Normal [facility] Comment on above: Performed By: #### 2 62353 #### [facility],[address] [place] [address] Urinalysis dipstick W Reflex Microscopic panel (U) SEE BELOW Normal [facility] Comment on above: Result Comment: MICR OSCOPIC Performed By: #### 2 [id number] #### [facility],[address] [place] [address] Urobilinog NORM Normal NORMAL: NORMAL [facility] Comment on above: Performed By: #### 2 61723 #### [facility],[address] [place] [address] Wbc 16-25 Normal 0-5/hpf [facility] Comment on above: Performed By: #### 2 44795 #### [facility],[address] [place] [address] Yeast NONE Normal [facility] Comment on above: Performed By: #### 2 51813 #### [facility],[address] [place] [address] Vital Signs Date Time Vital Sign Value Performing Clinician Iker mike 02-02-2025 11:48-0400 Body mass index (BMI) [Ratio] 16.62 kg/m2 Aniyah Breen [employer].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 Phone: [facility] 02-02-2025 11:48-0400 Body temperature 97.3 [degF] Aniyah Breen [employer] APPRAISER.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 Phone: [facility] 02-02-2025 11:48-0400 Body weight 50.3 kg Aniyah Breen [employer].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 Phone: [facility] 02-02-2025 11:48-0400 Diastolic blood pressure 72 mm[Hg] Aniyah Breen [employer] APPRAISER.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 Phone: [facility] 02-02-2025 11:48-0400 Heart rate 62 /min Aniyah Breen [employer].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 Phone: [facility] 02-02-2025 11:48-0400 Respiratory rate 18 /min Aniyah Breen [employer].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 Phone: [facility] 02-02-2025 11:48-0400 SaO2% (BldA) [Mass fraction] 99 % Aniyah Breen [employer].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 Phone: [facility] 02-02-2025 11:48-0400 Systolic blood pressure 102 mm[Hg] Aniyah Breen [employer] APPRAISER.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 Phone: [facility] 12-09-2024 08:19-0400 Body mass index (BMI) [Ratio] 16.85 kg/m2 Wing Guerrero [employer].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 Phone: [facility] 12-09-2024 08:19-0400 Body temperature 97 [degF] Wing Guerrero [employer] APPRAISER.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 Phone: [facility] 12-09-2024 08:19-0400 Body weight 51 kg Wing Guerrero [employer].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 Phone: [facility] 12-09-2024 08:19-0400 Diastolic blood pressure 64 mm[Hg] Wing Pendlebury [employer] APPRAISER.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 Phone: [facility] 12-09-2024 08:19-0400 Heart rate 63 /min Wing Pendleilabury [employer] APPRAISER.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 Phone: [facility] 12-09-2024 08:19-0400 Respiratory rate 18 /min [facility] [employer]OMS APPRAISER.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 Phone: [facility] 12-09-2024 08:19-0400 SaO2% (BldA) [Mass fraction] 100 % Wing Guerrero [employer] APPRAISER.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 Phone: [facility] 12-09-2024 08:19-0400 Systolic blood pressure 95 mm[Hg] Wing Ifeanyilebury [employer]S APPRAISER.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 Phone: [facility] 11-11-2024 09:39-0400 Body mass index (BMI) [Ratio] 17.08 kg/m2 Krislyn Aberegg PA Work Phone: [facility] 11-11-2024 09:39-0400 Body temperature 98.01 [degF] Krislyn Aberegg PA Work Phone: [facility] 11-11-2024 09:39-0400 Body weight 51.7 kg Krislyn Aberegg PA Work Phone: [facility] 11-11-2024 09:39-0400 Diastolic blood pressure 62 mm[Hg] Krislyn Aberegg PA Work Phone: [facility] 11-11-2024 09:39-0400 Heart rate 75 /min Krislyn Aberegg PA Work Phone: [facility] 11-11-2024 09:39-0400 Respiratory rate 18 /min Krislyn Aberegg PA Work Phone: [facility] 11-11-2024 09:39-0400 SaO2% (BldA) [Mass fraction] 99 % Krislyn Aberegg PA Work Phone: [facility] 11-11-2024 09:39-0400 Systolic blood pressure 100 mm[Hg] Markwilliamneha bel GROVE Work Phone: [facility] 07-26-2024 08:33-0400 Body mass index (BMI) [Ratio] 17.94 kg/m2 Rachel Praisler-Wood [employer].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 Phone: [facility] 07-26-2024 08:33-0400 Body temperature 97.2 [degF] Rachel Praisler-Wood [employer] APPRAISER.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 Phone: [facility] 07-26-2024 08:33-0400 Body weight 54.3 kg Rachel Praisler-Wood [employer] APPRAISER.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 Phone: [facility] 07-26-2024 08:33-0400 Diastolic blood pressure 60 mm[Hg] Rachel Praisler-Wood [employer] APPRA[employer]ER.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 Phone: [facility] 07-26-2024 08:33-0400 Heart rate 68 /min Rachel Praisler-Wood [employer] APPRAISER.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 Phone: [facility] 07-26-2024 08:33-0400 Respiratory rate 16 /min Rachel Praisler-Wood [employer] APPRAISER.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 Phone: [facility] 07-26-2024 08:33-0400 SaO2% (BldA) [Mass fraction] 100 % Rachel Praisler-Wood [employer] APPRAISER.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 Phone: [facility] 07-26-2024 08:33-0400 Systolic blood pressure 96 mm[Hg] Rachel Praisler-Wood [employer] APPRAISER.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 Phone: [facility] 03-31-2024 12:29-0500 Body mass index (BMI) [Ratio] 16.68 kg/m2 Wing Guerrero [employer].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 Phone: [facility] 03-31-2024 12:29-0500 Body temperature 96.91 [degF] Wing Guerrero CUSTOMS APPRAISER.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 Phone: [facility] 03-31-2024 12:29-0500 Body weight 50.5 kg [facility] CUSTOMS APPRAISER.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 Phone: [facility] 03-31-2024 12:29-0500 Diastolic blood pressure 60 mm[Hg] [facility] CUSTOMS APPRAISER.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 Phone: [facility] 03-31-2024 12:29-0500 Heart rate 88 /min [facility] CUSTOMS APPRAISER.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 Phone: [facility] 03-31-2024 12:29-0500 Respiratory rate 16 /min [facility] CUSTOMS APPRAISER.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 Phone: [facility] 03-31-2024 12:29-0500 SaO2% (BldA) [Mass fraction] 95 % Winghira [facility] [employer] APPRAISER.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 Phone: [facility] 03-31-2024 12:29-0500 Systolic blood pressure 92 mm[Hg] Winghira [facility]un[facility] CUSTOMS APPRAISER.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 Phone: [facility] 02-18-2024 14:36-0400 Body mass index (BMI) [Ratio] 16.71 kg/m2 Aniyah Breen [employer].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 Phone: [facility] 02-18-2024 14:36-0400 Body temperature 98.01 [degF] Aniyah Breen CUST[employer]S APPRAISER.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 Phone: [facility] 02-18-2024 14:36-0400 Body weight 50.6 kg Aniyah Breen [employer] APPRAISER.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 Phone: [facility] 02-18-2024 14:36-0400 Diastolic blood pressure 70 mm[Hg] Aniyah Breen [employer] APPRAISER.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 Phone: [facility] 02-18-2024 14:36-0400 Heart rate 70 /min Aniyah Breen [employer] APPRAISER.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 Phone: [facility] 02-18-2024 14:36-0400 Respiratory rate 16 /min Aniyah Breen C[employer] APPRAISER.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 Phone: [facility] 02-18-2024 14:36-0400 SaO2% (BldA) [Mass fraction] 97 % Aniyah Breen [employer] APPRAISER.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 Phone: [facility] 02-18-2024 14:36-0400 Systolic blood pressure 114 mm[Hg] Aniyah Breen [employer] APPRAISER.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 Phone: [facility] 01-22-2024 09:26-0400 Body mass index (BMI) [Ratio] 16.52 kg/m2 Aniyah Breen [employer].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 Phone: [facility] 01-22-2024 09:26-0400 Body temperature 97.81 [degF] Aniyah Breen [employer] APPRAISER.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 Phone: [facility] 01-22-2024 09:26-0400 Body weight 50 kg Aniyah Breen CUST[employer]S APPRAISER.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 Phone: [facility] 01-22-2024 09:26-0400 Diastolic blood pressure 64 mm[Hg] Aniyah Breen CUSTOMS APPRAISER.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 Phone: [facility] 01-22-2024 09:26-0400 Heart rate 63 /min Aniyah Breen CUST[employer]S 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.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 Phone: [facility] 01-22-2024 09:26-0400 Respiratory rate 20 /min Aniyah Breen [employer] APPRAISER.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 Phone: [facility] 01-22-2024 09:26-0400 SaO2% (BldA) [Mass fraction] 100 % Aniyah Breen [employer] 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.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 Phone: [facility] 01-22-2024 09:26-0400 Systolic blood pressure 96 mm[Hg] Aniyah Breen CUST[employer]S APPRAISER.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 Phone: [facility] 09-04-2023 11:38-0400 Body temperature 98.91 [degF] Veronica Nava [employer] APPRAISER.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 Phone: [facility] 09-04-2023 11:38-0400 Body weight 52.3 kg Veronica Nava APRN.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 Phone: [facility] 09-04-2023 11:38-0400 Diastolic blood pressure 83 mm[Hg] Veronica Nava APRN.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 Phone: [facility] 09-04-2023 11:38-0400 Heart rate 62 /min Veronica Nvaa APRN.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 Phone: [facility] 09-04-2023 11:38-0400 Respiratory rate 18 /min Veronica Nava APRN.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 Phone: [facility] 09-04-2023 11:38-0400 SaO2% (BldA) [Mass fraction] 100 % Veronica Nava APRN.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 Phone: [facility] 09-04-2023 11:38-0400 Systolic blood pressure 121 mm[Hg] Veronica Nava APRN.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 Phone: [facility] Encounters Encounter Date Encounter Type Care Provider Facility Start: 02-21-2025 End: 02-21-2025 ambulatory [facility] Facility:[facility] Start: 02-21-2025 End: 02-21-2025 ambulatory [facility] Facility:[facility] Start: 02-21-2025 Encounter for gynecological examination (general) (routine) without abnormal findings [facility] Start: 02-02-2025 End: 02-02-2025 Patient encounter procedure Aniyah Breen APRN.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 Phone: [facility] Comment on above: Burning with urinati on (Primary Dx); Encounter for screening for bacterial sexually transmitted disease; Candidal vulvovaginitis Start: 02-02-2025 End: 02-02-2025 ambulatory ANIYAH BREEN Facility:[facility] Start: 12-10-2024 End: 12-10-2024 Follow-up encounter Veda GROVE Work Phone: [facility] Comment on above: Results Start: 12-09-2024 End: 12-09-2024 Office outpatient visit 15 minutes Wing Guerrero APRN.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 Phone: [facility] Comment on above: Viral illness (Prima ry Dx) Start: 12-09-2024 End: 12-09-2024 [facility] Start: 11-12-2024 End: 11-12-2024 Follow-up encounter Pam Gordonmaru DUFFY.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 Phone: [facility] Start: 11-11-2024 End: 11-11-2024 Patient encounter procedure Veda GROVE Work Phone: [facility] Comment on above: Burning with urinati on (Primary Dx); Vaginal itching Start: 11-11-2024 End: 11-11-2024 ambulatory VEDA LEWIS Facility:[facility] Start: 09-08-2024 End: 09-08-2024 ambulatory [facility] Facility:[facility] Start: 07-26-2024 End: 09-25-2024 Follow-up encounter Veda GROVE Work Phone: [facility] Comment on above: Results (Left messag e for patient with negative results.Maryuri Araujo LPN/) Start: 07-26-2024 End: 07-26-2024 ambulatory [facility] Facility:[facility] Start: 07-26-2024 End: 07-26-2024 Patient encounter procedure Rachel Madrid APRN.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 Phone: [facility] Comment on above: Viral illness (Prima ry Dx) Start: 06-30-2024 End: 06-30-2024 Emergency department patient visit No Primary Care Physician Facility:[facility] Start: 04-01-2024 End: 04-03-2024 Telephone encounter Veda GROVE Work Phone: [facility] Comment on above: Results Start: 03-31-2024 End: 03-31-2024 ambulatory [facility] Facility:[facility] Start: 03-31-2024 End: 03-31-2024 Office outpatient visit 15 minutes Wing Guerrero CUSTOMS APPRAISER.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 Phone: [facility] Comment on above: Viral illness (Prima ry Dx) Start: 03-17-2024 End: 03-17-2024 Emergency department patient visit No Primary Care Physician Facility:[facility] Start: 03-08-2024 End: 03-08-2024 Emergency department patient visit No Primary Care Physician Facility:[facility] Start: 02-20-2024 End: 02-20-2024 Telephone encounter No Pcp CUST[employer]S APPRAISER [facility] Comment on above: Patient Question Start: 02-19-2024 End: 02-19-2024 Telephone encounter Rachel Madrid CUSTOMS APPRAISER.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 Phone: [facility] Comment on above: Results Start: 02-18-2024 End: 02-18-2024 Patient encounter procedure Aniyah Breen APRN.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 Phone: [facility] Comment on above: Encounter for screen ing examination for sexually transmitted disease (Primary Dx) Start: 01-26-2024 End: 01-26-2024 Telephone encounter Aniyah Breen APRN.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 Phone: [facility] Comment on above: Results Start: 01-23-2024 End: 01-25-2024 Telephone encounter Rolan Carranza MD Work Phone: [facility] Comment on above: Results (BV+, Candid a+) Start: 01-22-2024 End: 01-22-2024 Patient encounter procedure Aniyah Breen APRN.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 Phone: [facility] Comment on above: Burning with urinati on (Primary Dx); URI, acute; Vaginal discharge Start: 11-04-2023 End: 11-04-2023 Emergency department patient visit Matt Romero Facility:[facility] Start: 10-21-2023 End: 10-21-2023 Emergency department patient visit No Primary Care Physician Facility:[facility] Start: 09-06-2023 Telephone encounter Malissa wilks PA-C Work Phone: [facility] Comment on above: Results Start: 09-05-2023 Telephone encounter Aniyah lopez [employer]S APPRAISER.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 Phone: [facility] Comment on above: Results Start: 09-04-2023 End: 09-04-2023 Patient encounter procedure Veronica Nava CUST[employer]S APPRAISER.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 Phone: [facility] Comment on above: Burning with urinati on (Primary Dx) Start: 06-15-2023 ambulatory Dionne Cr RN NURS E EDUCATION REPORTER Comment on above: Information Start: 11-17-2021 End: 11-17-2021 Emergency department patient visit [facility] Start: 12-08-2020 End: 12-08-2020 Emergency department patient visit AIYANA MUNOZ [facility] Procedures Date Procedure Procedure Detail Performing Clinician Start: 02-02-2025 BACTERIAL VAGINOSIS NAAT Aniyah Breen CUSTOMS APPRAISER.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 Phone: Start: 02-02-2025 Iadna trichomonas vaginalis amplified probe tech Aniyah Breen CUSTOMS APPRAISER.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 Phone: Start: 02-02-2025 Urnls dip stick/tabl et rgnt auto w/o microscopy Aniyah Breen CUSTOMS APPRAISER.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 Phone: Start: 11-11-2024 Urnls dip stick/tabl et rgnt auto w/o microscopy Wing Guerrero CUSTOMS APPRAISER.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 Phone: Start: 07-26-2024 INFLUENZA A&B MOLECU LAR (POC) Rachel Madrid CUSTOMS APPRAISER.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 Phone: Start: 01-22-2024 Urnls dip stick/tabl et rgnt auto w/o microscopy Veronica Nava CUSTOMS APPRAISER.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 Phone: Start: 01-22-2024 STREP A MOLECULAR (POC) Veronica Nava CUSTOMS APPRAISER.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 Phone: Start: 09-04-2023 BACTERIAL VAGINOSIS NAAT Veronica Nava CUSTOMS APPRAISER.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 Phone: Start: 09-04-2023 Urnls dip stick/tabl et rgnt auto w/o microscopy Malissa Corcoran PA-C Work Phone: Start: 12-08-2020 Urinalysis AIYANA Gonzalez Comment on above: Result Comment: URIN ALYSIS Performed By: #### [id number] #### [facility],[address] [place] [id number] Plan of Treatment Date Care Activity Detail Author Start: 10-14-2029 Urine microalbumin profile DTaP,Tdap,Td Vaccine (7 - Td or Tdap) [facility] Start: 02-21-2025 End: 02-21-2025 Patient encounter procedure 02/21/2025 2:00 PM EDT Office Visit OB/Gynecology [address] [place] [address] Cristiana Parsons APRN.[facility] [address] [place] [address] Annual OB/Gynecology Comment on above: Annual Start: 02-02-2025 End: 05-04-2025 Chlamydia trachomatis+Neisseria gonorrhoeae DNA [Presence] in Unspecified specimen by YAIR with probe detection [facility] Work Phone: Comment on above: Expected: 02/02/2025 , Expires: 05/04/2025 Start: 01-17-2025 Influenza vaccination [facility] Start: 11-11-2024 End: 02-10-2025 Chlamydia trachomatis+Neisseria gonorrhoeae DNA [Presence] in Unspecified specimen by YAIR with probe detection [facility] Work Phone: Comment on above: Expected: 11/11/2024 , Expires: 02/10/2025 Start: 07-13-2024 Screening for malign ant neoplasm of cervix [facility] Start: 02-18-2024 End: 05-19-2024 Chronic hepatitis differentiation between hepatitis B and C virus panel - Serum or Plasma [facility] Comment on above: Expected: 02/18/2024 , Expires: 05/19/2024 Start: 02-18-2024 End: 05-19-2024 HERPES SIMPLEX TYPE 1 AND 2 IG [facility] Comment on above: Expected: 02/18/2024 , Expires: 05/19/2024 Start: 02-18-2024 End: 05-19-2024 HIV 1+2 Ab [Presence] in Serum or Plasma by Immunoassay [facility] Work Phone: Comment on above: Expected: 02/18/2024 , Expires: 05/19/2024 Start: 02-18-2024 End: 05-19-2024 SYPHILIS TOTAL W/REFLEX [facility] Comment on above: Expected: 02/18/2024 , Expires: 05/19/2024 Start: 01-18-2024 Covid-19 Vaccine ( season) Covid-19 Vaccine () [facility] Start: 01-18-2024 Covid-19 Vaccine ( season) Covid-19 Vaccine () [facility] Start: 01-18-[address] [facility] Start: 05-19-2023 Behavioral Health Screening Behavioral Health Screening [facility] Start: 05-19-2023 Depression Assessment Depression Ass essment [facility] Start: 01-17-2023 Covid-19 Vaccine ( season) Covid-19 Vaccine ( season) [facility] Start: 01-17-2023 Influenza vaccination Influenza Vacc ine (#1) [facility] Start: 2017 HPV Vaccine (1 - 3-d ose SCDM series) HPV Vaccine (1 - 3-dose SCDM series) [facility] Start: 2009 Hepatitis B Vaccine (1 of 3 - 19+ 3-dose series) Hepatitis B Vaccine (1 of 3 - 19+ 3-dose series) [facility] Start: 2009 Pneumococcal vaccination Pneum ococcal Vaccine (1 of 2 - PCV) [facility] Start: 2008 Anxiety Screening Anxiety Screening [facility] Start: 2008 Depression Screening Depression Scre ening [facility] Start: 1996 Pneumococcal vaccination Pneum ococcal Vaccine (1 of 2 - PCV) [facility] Start: 05-31-1991 Covid-19 Vaccine (#1) Covid-19 Vacci ne (#1) [facility] Start: 1990 Hepatitis B Vaccine (1 of 3 - 3-dose series) Hepatitis B Vaccine (1 of 3 - 3-dose series) [facility] Bacteria identified in Urine by Culture URINE CULTURE Microbiology Routine Burning with urination 09/04/2023 12:27 PM [facility] Work Phone: Bacteria identified in Urine by Culture URINE CULTURE Microbiology Routine Burning with urination 01/22/2024 11:26 AM [facility] Work Phone: Bacteria identified in Urine by Culture BACTERIAL CULTURE, URINE Microbiology Routine Burning with urination 11/11/2024 11:[address] [facility] Bacteria identified in Urine by Culture BACTERIAL CULTURE, URINE Microbiology Routine Burning with urination 02/02/2025 11:[address] [facility] BACTERIAL VAGINOSIS NAAT BACTERI AL VAGINOSIS NAAT Lab Routine Burning with urination Vaginal discharge 01/22/2024 11:[address] [facility] BACTERIAL VAGINOSIS NAAT BACTERI AL VAGINOSIS NAAT Lab Routine Encounter for screening examination for sexually transmitted disease 02/18/2024 2:[address] [facility] BACTERIAL VAGINOSIS NAAT BACTERI AL VAGINOSIS NAAT Lab Routine Burning with urination Vaginal itching 11/11/2024 11:[address] [facility] SANTOS/TRICHOMONAS NAAT SANTOS /TRICHOMONAS NAAT Lab Routine Burning with urination 09/04/2023 12:27 PM [facility] Work Phone: SANTOS/TRICHOMONAS NAAT SANTOS /TRICHOMONAS NAAT Lab Routine Burning with urination Vaginal discharge 01/22/2024 11:[address] [facility] SANTOS/TRICHOMONAS NAAT SANTOS /TRICHOMONAS NAAT Lab Routine Encounter for screening examination for sexually transmitted disease 02/18/2024 2:[address] [facility] SANTOS/TRICHOMONAS NAAT SANTOS /TRICHOMONAS NAAT Lab Routine Burning with urination Vaginal itching 11/11/2024 11:[address] [facility] Chlamydia trachomatis+Neisseria gonorrhoeae DNA [Presence] in Unspecified specimen by YAIR with probe detection GONORRHEA/CHLAMYDIA NAAT Lab Routine Burning with urination 09/04/2023 12:27 PM T [facility] Work Phone: Chlamydia trachomatis+Neisseria gonorrhoeae DNA [Presence] in Unspecified specimen by YAIR with probe detection GONORRHEA/CHLAMYDIA NAAT Lab Routine Burning with urination Vaginal discharge 01/22/2024 11:26 AM EDT [facility] Chlamydia trachomatis+Neisseria gonorrhoeae DNA [Presence] in Unspecified specimen by YAIR with probe detection GONORRHEA/CHLAMYDIA NAAT Lab Routine Encounter for screening examination for sexually transmitted disease 02/18/2024 3:01 PM EDT [facility] COVID & INFLUENZA A/ B & RSV PCR, ROUTINE COVID & INFLUENZA A/B & RSV PCR, ROUTINE Microbiology Routine URI, acute 01/22/2024 10:06 AM EDT [facility] COVID & INFLUENZA A/ B & RSV PCR, ROUTINE COVID & INFLUENZA A/B & RSV PCR, ROUTINE Microbiology Routine Viral illness 03/31/2024 1:13 PM [facility] Work Phone: COVID & INFLUENZA A/ B & RSV PCR, ROUTINE COVID & INFLUENZA A/B & RSV PCR, ROUTINE Microbiology Routine Viral illness Ordered: 07/26/2024 [facility] Work Phone: Comment on above: Ordered: 07/26/2024 COVID & INFLUENZA A/ B & RSV PCR, ROUTINE COVID & INFLUENZA A/B & RSV PCR, ROUTINE Microbiology Routine Viral illness Ordered: 12/09/2024 [facility] Work Phone: Comment on above: Ordered: 12/09/2024 Immunizations Immunization Date Immunization Notes Care Provider Britt garica 10-15-2019 tetanus toxoid, redu hussein diphtheria toxoid, and acellular pertussis vaccine, adsorbed Dionne Cr RN [facility] 08-23-2015 tetanus toxoid, redu hussein diphtheria toxoid, and acellular pertussis vaccine, adsorbed Dionne Cr RN [facility] 01-08-1996 diphtheria, tetanus toxoids and acellular pertussis vaccine, unspecified formulation Aniyah Breen APRN.CNP Work Phone: [facility] 01-08-1996 measles, mumps and rubella virus vaccine Aniyah Breen CUSTOMS APPRAISER.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 Phone: [facility] 01-08-1996 trivalent poliovirus vaccine, live, oral Aniyah Breen CUSTOMS APPRAISER.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 Phone: [facility] 10-24-1992 diphtheria, tetanus toxoids and pertussis vaccine Aniyah Breen CUSTOMS APPRAISER.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 Phone: [facility] 08-17-1992 diphtheria, tetanus toxoids and pertussis vaccine Aniyah Breen CUSTOMS APPRAISER.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 Phone: [facility] 08-17-1992 haemophilus influenz ae type b vaccine, conjugate unspecified formulation Aniyah Breen CUSTOMS APPRAISER.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 Phone: [facility] 08-17-1992 measles, mumps and rubella virus vaccine Aniyah Breen CUSTOMS APPRAISER.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 Phone: [facility] 08-17-1992 trivalent poliovirus vaccine, live, oral Aniyah Breen CUSTOMS APPRAISER.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 Phone: [facility] 03-02-1991 diphtheria, tetanus toxoids and pertussis vaccine Aniyah Breen CUSTOMS APPRAISER.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 Phone: [facility] 03-02-1991 haemophilus influenz ae type b vaccine, conjugate unspecified formulation Aniyah Breen CUSTOMS APPRAISER.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 Phone: [facility] 03-02-1991 trivalent poliovirus vaccine, live, oral Aniyah Breen CUSTOMS APPRAISER.[facility] Work Phone: [facility] Payers Date Payer Category Payer Self-pay 2022 Medicaid [id number] 2022 Unknown [id number] 1990 Unknown [id number] 1990 Unknown [id number] Private Health Insurance [id number] Unknown [id number] Unknown [id number] Unknown [id number] [id number] Unknown [id number] [id number] Unknown [id number] [id number] Social History Date Type Detail Facility Start: [facility]14[facility] Work Phone: Start: 06-14-2023 Tobacco use and exposure Smokeless tobacco non-user [facility] Work Phone: Start: 06-14-2023 End: 02-02-2025 Alcohol intake Current drinker of alcohol (finding) [facility] Start: 06-18-2022 End: 06-14-2023 History of Social function [facility] Start: 06-18-2022 End: 06-14-2023 Tobacco use panel [facility] Start: 03-03-2015 Last EPDS Self Harm Result Not on file [facility] Start: 06-14-2023 Tobacco Comment 4-5 cigarettes per d ay [facility] Start: 03-13-2015 Alcohol Comment not while [facility] Start: 1990 Sex Assigned At Not on file [facility] Clinical Notes 07-28-2015 to 02-21-2025 Aniyah Breen APRN.CAP MACHINE OPERATOR - 02/02/2025 12:27 PM EDTTelephone Encounter - Janina Leung RN - 12/10/2024 11:39 AM EDTTelephone Encounter - Janina Leung RN - 12/10/2024 11:39 AM EDT Note Date & Type Note Facility 02-21-2025 Note HNO ID: [id number] Author: CRISTIANA PARSONS APRN.CNM Service: ? Author Type: Dishwashing Machine Repairer Type: Progress Notes Filed: 02/21/2025 14:49 Note Text: Becky is a 34 year old who presents for an annual gynecologic exam with complaints, vaginal discharge. C/O losing weight and inability to gain weight over the past couple of years. Requesting lab work. No PCP. Still get period: Yes LMP: 02/08/2025 Menses: cycles IRREGULAR and 5 TO 6 days of flow Menstrual flow: Heavy Bleeding amount bothersome: Yes Bleeding between periods: Yes Period symptoms: Breast tenderness, Cramps, and Mood change Sexually active: Yes Contraception: Tubal Ligation Contraception frequency: Always HPV vaccine: No HPV:positive Last pap smear: 07/13/2019 History of abnormal pap: Yes- has not been here since 2019- Colposcopy: No. Leep: No. Cone biopsy: No. Bothersome pelvic pain: No Last mammogram: never OB History Gravida4 Para3 Term3 Preterm0 AB1 Living3 SAB0 IAB1 Ectopic0 Multiple0 Live Births3 Comment: Fourth degree laceration w/ first delivery. Forceps delivery after 3 pop offs w/ vacuum. Steffany Ruano MD Magazine Journalist History LMP: 12/09/2024 (Exact Date), Having periods Age at Menarche: Age at First : Age at Menopause: Magazine Journalist History Comments: Sexual Activity: Yes; Male Contraception: Condom PAST MEDICAL HISTORY Diagnosis Date Abnormal Pap smear of cervix PAST SURGICAL HISTORY Procedure Laterality Date PAST SURGICAL HISTORY OF wosdom teeth FAMILY HISTORY Problem Relation Age of Onset Cancer Mother 45 SOCIAL HISTORY Social History Tobacco Use Smoking status: Every Day Smokeless tobacco: Never Tobacco comments: 4-5 cigarettes per day Vaping Use Vaping status: Never Used Substance Use Topics Alcohol use: Yes Comment: not while Drug use: No REVIEW OF SYSTEMS Abdomen: No abdominal pain, nausea, vomiting, diarrhea, or constipation. No bloating, early satiety, indigestion, or increased flatulence. Bladder: No dysuria, gross hematuria, urinary frequency, urinary urgency, or incontinence. Breast: No breast lumps, nipple d/c, overlying skin changes, redness or skin retraction and positive for nipple sensitivity. Allergies and current medication updated:Yes SENSITIVE EXAM: The sensitive examination was discussed with the Patient or Patient's Authorized Cloth Inspector. As applicable, any other physician, advance practice provider, medical student, or other health professional student that will be observing or involved in the sensitive examination for educational or training purposes was discussed with the Patient or Authorized Cloth Inspector. The Patient or Authorized Cloth Inspector has agreed to proceed with the sensitive examination. (Sensitive examination includes inspection and/or palpation of the breasts, pelvis, prostate and anorectal regions). EXAM: BP 110/62 Ht 5' 8 (1.73m) Wt 109 lb (49.4kg) LMP 02/08/2025 BMI 16.58 kg/(m2). GENERAL: pleasant, female in no apparent distress HEENT: Normocephalic NECK: Supple and full range of motion DERMATOLOGY: Normal and without lesions BREAST: soft, symmetric, no dominant mass, normal nipple-areolar complex, no lymphadenopathy, no nipple discharge, and fibrocystic changes CHEST: Normal inspiratory effort ABDOMEN: soft, non-tender, and no masses PELVIC: external genitalia normal, normal Bartholin's glands, urethra, [place]'s glands, no vulvar lesions, no cervical lesions, good vaginal support, physiologic discharge present, normal appearing perineal body and perianal region BIMANUAL: uterus normal size, shape and consistency, no adnexal masses, non-tender, and no cervical motion tenderness RECTOVAGINAL: deferred. NEURO: alert and oriented x3,exam grossly non-focal EXTREMITIES: normal ASSESSMENT/PLAN: 1) Health maintenance: Pap done with HPV. 2) Contraception: tubal sterilization. Contraceptive options reviewed and information provided. 3) STD screening: Accepted STI check for Gonorrhea and Chlamydia. 4) CBC- TSH- encouraged finding PCP and establishing care 5) Reports mother of cervical cancer in 40's - stressed importance of PAP/screenings Will notify patient of results Follow up one year or sooner as needed Cristiana Parsons APRN.[facility] 02-02-2025 Note HNO ID: [id number] Author: ANIYAH BREEN APRN.TORSTEN Service: ? Author Type: Nurse Practitioner Type: Progress Notes Filed: 02/02/2025 12:33 Note Text: [facility] Franciscokermit Hill is a 34 year old female. Patient presents with: burning with urination: Burning with urination and some itching x 2 days HPI The patient is a 34-year-old female presenting with dysuria. Dysuria: - Onset a few days ago, with increased intensity this morning. - Describes burning sensation during urination. - Denies urinary frequency, urgency, vaginal discharge, or bleeding. - Currently on the last day of menstruation. - Denies nausea or emesis. - Sexually active; denies concerns for STIs. - History of similar symptoms; reports frequent consumption of coffee and soda. - Requests Pyridium for symptom relief. PAST MEDICAL HISTORY Diagnosis Date Abnormal Pap smear of cervix PAST SURGICAL HISTORY Procedure Laterality Date PAST SURGICAL HISTORY OF wosdom teeth ALLERGIES Azithromycin, Bactrim [Sulfamethoxazole-Trimethoprim], Sulfamethoxazole, and Trimethoprim MEDICATIONS fluconazole (DIFLUCAN) 150 mg tablet Take 1 tablet by mouth one time only for 1 dose. phenazopyridine (PYRIDIUM) 200 mg tablet Take 1 tablet by mouth three times a day as needed. FAMILY HISTORY Problem Relation Age of Onset Cancer Mother 45 SOCIAL HISTORY[1] Review of Systems Gastrointestinal: (-) nausea, (-) vomiting Genitourinary: (+) dysuria, (-) urinary frequency, (-) vaginal discharge, (-) vaginal bleeding Objective BP 102/72 Pulse 62 Temp 36.3 ?C (97.3 ?F) (Tympanic) Resp 18 Wt 50.3 kg (110 lb 14.3 oz) LMP 12/09/2024 (Exact Date) SpO2 99% BMI 16.62 kg/m? Physical Exam Vitals and nursing note reviewed. Constitutional: General: She is not in acute distress. Appearance: Normal appearance. She is normal weight. She is not ill-appearing, toxic-appearing or diaphoretic. HENT: Head: Normocephalic and atraumatic. Right Ear: Ear canal and external ear normal. Left Ear: Ear canal and external ear normal. Nose: Nose normal. No congestion or rhinorrhea. Mouth/Throat: Mouth: Mucous membranes are moist. Pharynx: No oropharyngeal exudate or posterior oropharyngeal erythema. Eyes: General: Right eye: No discharge. Left eye: No discharge. Extraocular Movements: Extraocular movements intact. Conjunctiva/sclera: Conjunctivae normal. Pupils: Pupils are equal, round, and reactive to light. Cardiovascular: Rate and Rhythm: Normal rate and regular rhythm. Pulses: Normal pulses. Heart sounds: Normal heart sounds. No murmur heard. No friction rub. Pulmonary: Effort: Pulmonary effort is normal. No respiratory distress. Breath sounds: Normal breath sounds. No stridor. No wheezing, rhonchi or rales. Chest: Chest wall: No tenderness. Abdominal: General: Abdomen is flat. There is no distension. Palpations: Abdomen is soft. There is no mass. Tenderness: There is no abdominal tenderness. There is no right CVA tenderness, left CVA tenderness, guarding or rebound. Hernia: No hernia is present. Genitourinary: Comments: Deferred Musculoskeletal: General: No swelling, tenderness, deformity or signs of injury. Normal range of motion. Cervical back: Normal range of motion and neck supple. No rigidity. Right lower leg: No edema. Left lower leg: No edema. Lymphadenopathy: Cervical: No cervical adenopathy. Skin: General: Skin is warm and dry. Capillary Refill: Capillary refill takes less than 2 seconds. Coloration: Skin is not jaundiced or pale. Findings: No bruising, erythema, lesion or rash. Neurological: General: No focal deficit present. Mental Status: She is alert and oriented to person, place, and time. Cranial Nerves: No cranial nerve deficit. Sensory: No sensory deficit. Motor: No weakness. Coordination: Coordination normal. Gait: Gait normal. Psychiatric: Mood and Affect: Mood normal. Behavior: Behavior normal. Thought Content: Thought content normal. Judgment: Judgment normal. { 1. Burning with urination (R30.0) 2. Candidal vulvovaginitis (B37.31) - Acute onset of dysuria without frequency or urgency; urinalysis unremarkable. - Most likely candidal vulvovaginitis; differential includes bacterial vaginosis. - Urine sent for culture Swabs obtained to rule out STI - Start Pyridium for symptomatic relief. - Discussed pH balance and potential contributing factors. - Results will be communicated via phone or Mobiveilhart. 3. Encounter for screening for bacterial sexually transmitted disease (Z11.3) and Recording using Cumed software for draft documentation of the visit was discussed with the patient/authorized hr representative; all questions welcomed and answered. Patient/authorized hr representative agreed to proceed MDM Procedures [1] Social History Tobacco Use Smoking status: Every Day Smokeless tobacco: Never (more content not included)... [facility] 02-02-2025 History of Presen t illness Narrative [facility] Franciscokermit Hill is a 34 year old female. Patient presents with: burning with urination: Burning with urination and some itching x 2 days HPI The patient is a 34-year-old female presenting with dysuria. Dysuria: - Onset a few days ago, with increased intensity this morning. - Describes burning sensation during urination. - Denies urinary frequency, urgency, vaginal discharge, or bleeding. - Currently on the last day of menstruation. - Denies nausea or emesis. - Sexually active; denies concerns for STIs. - History of similar symptoms; reports frequent consumption of coffee and soda. - Requests Pyridium for symptom relief. PAST MEDICAL HISTORY Diagnosis Date Abnormal Pap smear of cervix PAST SURGICAL HISTORY Procedure Laterality Date PAST SURGICAL HISTORY OF wosdom teeth ALLERGIES Azithromycin, Bactrim [Sulfamethoxazole-Trimethoprim], Sulfamethoxazole, and Trimethoprim MEDICATIONS fluconazole (DIFLUCAN) 150 mg tablet Take 1 tablet by mouth one time only for 1 dose. phenazopyridine (PYRIDIUM) 200 mg tablet Take 1 tablet by mouth three times a day as needed. FAMILY HISTORY Problem Relation Age of Onset Cancer Mother 45 SOCIAL HISTORY[1] Review of Systems Gastrointestinal: (-) nausea, (-) vomiting Genitourinary: (+) dysuria, (-) urinary frequency, (-) vaginal discharge, (-) vaginal bleeding Objective BP 102/72 Pulse 62 Temp 36.3 C (97.3 F) (Tympanic) Resp 18 Wt 50.3 kg (110 lb 14.3 oz) LMP 12/09/2024 (Exact Date) SpO2 99% BMI 16.62 kg/m Physical Exam Vitals and nursing note reviewed. Constitutional: General: She is not in acute distress. Appearance: Normal appearance. She is normal weight. She is not ill-appearing, toxic-appearing or diaphoretic. HENT: Head: Normocephalic and atraumatic. Right Ear: Ear canal and external ear normal. Left Ear: Ear canal and external ear normal. Nose: Nose normal. No congestion or rhinorrhea. Mouth/Throat: Mouth: Mucous membranes are moist. Pharynx: No oropharyngeal exudate or posterior oropharyngeal erythema. Eyes: General: Right eye: No discharge. Left eye: No discharge. Extraocular Movements: Extraocular movements intact. Conjunctiva/sclera: Conjunctivae normal. Pupils: Pupils are equal, round, and reactive to light. Cardiovascular: Rate and Rhythm: Normal rate and regular rhythm. Pulses: Normal pulses. Heart sounds: Normal heart sounds. No murmur heard. No friction rub. Pulmonary: Effort: Pulmonary effort is normal. No respiratory distress. Breath sounds: Normal breath sounds. No stridor. No wheezing, rhonchi or rales. Chest: Chest wall: No tenderness. Abdominal: General: Abdomen is flat. There is no distension. Palpations: Abdomen is soft. There is no mass. Tenderness: There is no abdominal tenderness. There is no right CVA tenderness, left CVA tenderness, guarding or rebound. Hernia: No hernia is present. Genitourinary: Comments: Deferred Musculoskeletal: General: No swelling, tenderness, deformity or signs of injury. Normal range of motion. Cervical back: Normal range of motion and neck supple. No rigidity. Right lower leg: No edema. Left lower leg: No edema. Lymphadenopathy: Cervical: No cervical adenopathy. Skin: General: Skin is warm and dry. Capillary Refill: Capillary refill takes less than 2 seconds. Coloration: Skin is not jaundiced or pale. Findings: No bruising, erythema, lesion or rash. Neurological: General: No focal deficit present. Mental Status: She is alert and oriented to person, place, and time. Cranial Nerves: No cranial nerve deficit. Sensory: No sensory deficit. Motor: No weakness. Coordination: Coordination normal. Gait: Gait normal. Psychiatric: Mood and Affect: Mood normal. Behavior: Behavior normal. Thought Content: Thought content normal. Judgment: Judgment normal. { 1. Burning with urination (R30.0) 2. Candidal vulvovaginitis (B37.31) - Acute onset of dysuria without frequency or urgency; urinalysis unremarkable. - Most likely candidal vulvovaginitis; differential includes bacterial vaginosis. - Urine sent for culture Swabs obtained to rule out STI - Start Pyridium for symptomatic relief. - Discussed pH balance and potential contributing factors. - Results will be communicated via phone or MyChart. 3. Encounter for screening for bacterial sexually transmitted disease (Z11.3) and Recording using [employer] software for draft documentation of the visit was discussed with the patient/authorized hr representative; all questions welcomed and answered. Patient/authorized hr representative agreed to proceed MDM Procedures [1] Social History Tobacco Use Smoking status: Every Day Smokeless tobacco: Never Tobacco comments: 4-5 cigarettes per day Vaping Use Vaping status: Never Used Substance Use Topics Alcohol use: Yes Comment: not while Drug use: No documented in this encounter [facility] 12-10-2024 Telephone encounter Note Pt called in for results and notified of negative results. [facility] 12-10-2024 Miscellaneous Notes Pt called in for results and notified of negative results. Negative COVID flu RSV documented in this encounter [facility] 12-10-2024 Telephone encounter Note Negative COVID flu RSV [facility] Work Phone: 12-09-2024 Note SARS-COV-2 (AGENT OF COVID-19) RNA: Not detected INFLUENZA A RNA: Not detected INFLUENZA B RNA: Not detected RESPIRATORY SYNCYTIAL VIRUS (RSV) RNA: Not detected [facility] Comment on above: Performed By: #### [id number] ####[facility] [id number] [address] [facility] 12-09-2024 Note HNO ID: [id number] Author: WING GUERRERO APRN.TORSTEN Service: ? Author Type: Nurse Practitioner Type: Progress Notes Filed: 12/09/2024 08:33 Note Text: [facility] Hill is a 34 year old female. Patient presents with: Chest Congestion: Cough, headache, sore throat, chest tightness and pressure, chills, low grade temp, headache, deep chest cough x 2 days Headache was x 4 HPI Nontoxic-appearing 34-year-old female presents urgent care chief complaint URI-like symptoms. Duration of symptoms 3 to 4 days. Associated symptoms cough body aches chills fatigue sinus pressure headache. Headache started first. Daughter was sick similar signs symptoms. OTC medications none. Body aches and chills started last night. Did have a few episodes of loose stool no blood. Denies any chest pain hemoptysis or pleuritic pain today. Some chest pain last night with coughing. No high fevers. Is not . Past medical history prescription medications allergies reviewed Review of Systems Constitutional: Positive for chills and fatigue. Negative for diaphoresis and fever. HENT: Positive for congestion, sinus pressure and sore throat. Negative for drooling, ear discharge, ear pain, rhinorrhea, sinus pain, sneezing and trouble swallowing. Eyes: Negative for pain, discharge, redness, itching and visual disturbance. Respiratory: Positive for cough. Negative for chest tightness, shortness of breath and wheezing. Cardiovascular: Negative for chest pain. Gastrointestinal: Negative for abdominal distention, abdominal pain, blood in stool, constipation, diarrhea, nausea and vomiting. Genitourinary: Negative for difficulty urinating and dysuria. Musculoskeletal: Negative for arthralgias, joint swelling, neck pain and neck stiffness. Skin: Negative for rash. Neurological: Positive for headaches. Negative for dizziness, weakness and numbness. Objective BP 95/64 Pulse 63 Temp 36.1 ?C (97 ?F) Resp 18 Wt 51 kg (112 lb 7 oz) LMP 12/09/2024 (Exact Date) SpO2 100% BMI 16.85 kg/m? Physical Exam Constitutional: Appearance: Normal appearance. HENT: Head: Normocephalic. Jaw: No trismus, tenderness, swelling or pain on movement. Nose: No congestion. Mouth/Throat: Mouth: Mucous membranes are moist. Pharynx: Oropharynx is clear. Uvula midline. No oropharyngeal exudate or posterior oropharyngeal erythema. Eyes: Conjunctiva/sclera: Conjunctivae normal. Cardiovascular: Rate and Rhythm: Normal rate. Pulmonary: Effort: Pulmonary effort is normal. Breath sounds: Normal breath sounds. No wheezing, rhonchi or rales. Abdominal: Palpations: Abdomen is soft. Tenderness: There is no abdominal tenderness. There is no guarding or rebound. Musculoskeletal: General: Normal range of motion. Cervical back: Normal range of motion and neck supple. No edema, erythema or rigidity. No pain with movement. Normal range of motion. Lymphadenopathy: Cervical: No cervical adenopathy. Skin: General: Skin is warm. Findings: No rash. Neurological: General: No focal deficit present. Mental Status: She is alert and oriented to person, place, and time. Mental status is at baseline. {ASSESSMENT/PLAN: 1. Viral illness - ICD9: 079.99, ICD10: B34.9 - Discussed viral etiology and rationale for treatment. - Symptomatic treatment with prn analgesia - Supportive care with fluids and rest - COVID AND INFLUENZA A/B AND RSV PCR, ROUTINE No evidence of bacterial infection on today's assessment. Treat as viral etiology. Patient was educated on supportive therapies. Patient will follow up with primary care provider as needed. Patient was instructed to immediately proceed to emergency room for any new, worsening, or symptoms lasting longer than anticipated. The patient's clinical presentation is otherwise unremarkable at this time. Based on exam and clinical finding, the patient is stable for discharge. Plan of care was discussed with patient. Patient verbalizes understanding and agrees to plan of care. This note was generated using [employer] software. It may contain errors in wording, punctuation, or spelling. Wing Guerrero APRN.CAP MACHINE OPERATOR History and Record Review Clinical information obtained from an independent historian. History obtained from or confirmed by: parent. External record(s) reviewed: prior outpatient record. Disposition The patient was discharged. OTC Medications were advised: Procedures [facility] 12-09-2024 History of Presen t illness Narrative [facility] Sonal Hill is a 34 year old female. Patient presents with: Chest Congestion: Cough, headache, sore throat, chest tightness and pressure, chills, low grade temp, headache, deep chest cough x 2 days Headache was x 4 HPI Nontoxic-appearing 34-year-old female presents urgent care chief complaint URI-like symptoms. Duration of symptoms 3 to 4 days. Associated symptoms cough body aches chills fatigue sinus pressure headache. Headache started first. Daughter was sick similar signs symptoms. OTC medications none. Body aches and chills started last night. Did have a few episodes of loose stool no blood. Denies any chest pain hemoptysis or pleuritic pain today. Some chest pain last night with coughing. No high fevers. Is not . Past medical history prescription medications allergies reviewed Review of Systems Constitutional: Positive for chills and fatigue. Negative for diaphoresis and fever. HENT: Positive for congestion, sinus pressure and sore throat. Negative for drooling, ear discharge, ear pain, rhinorrhea, sinus pain, sneezing and trouble swallowing. Eyes: Negative for pain, discharge, redness, itching and visual disturbance. Respiratory: Positive for cough. Negative for chest tightness, shortness of breath and wheezing. Cardiovascular: Negative for chest pain. Gastrointestinal: Negative for abdominal distention, abdominal pain, blood in stool, constipation, diarrhea, nausea and vomiting. Genitourinary: Negative for difficulty urinating and dysuria. Musculoskeletal: Negative for arthralgias, joint swelling, neck pain and neck stiffness. Skin: Negative for rash. Neurological: Positive for headaches. Negative for dizziness, weakness and numbness. Objective BP 95/64 Pulse 63 Temp 36.1 C (97 F) Resp 18 Wt 51 kg (112 lb 7 oz) LMP 12/09/2024 (Exact Date) SpO2 100% BMI 16.85 kg/m Physical Exam Constitutional: Appearance: Normal appearance. HENT: Head: Normocephalic. Jaw: No trismus, tenderness, swelling or pain on movement. Nose: No congestion. Mouth/Throat: Mouth: Mucous membranes are moist. Pharynx: Oropharynx is clear. Uvula midline. No oropharyngeal exudate or posterior oropharyngeal erythema. Eyes: Conjunctiva/sclera: Conjunctivae normal. Cardiovascular: Rate and Rhythm: Normal rate. Pulmonary: Effort: Pulmonary effort is normal. Breath sounds: Normal breath sounds. No wheezing, rhonchi or rales. Abdominal: Palpations: Abdomen is soft. Tenderness: There is no abdominal tenderness. There is no guarding or rebound. Musculoskeletal: General: Normal range of motion. Cervical back: Normal range of motion and neck supple. No edema, erythema or rigidity. No pain with movement. Normal range of motion. Lymphadenopathy: Cervical: No cervical adenopathy. Skin: General: Skin is warm. Findings: No rash. Neurological: General: No focal deficit present. Mental Status: She is alert and oriented to person, place, and time. Mental status is at baseline. {ASSESSMENT/PLAN: 1. Viral illness - ICD9: 079.99, ICD10: B34.9 - Discussed viral etiology and rationale for treatment. - Symptomatic treatment with prn analgesia - Supportive care with fluids and rest - COVID & INFLUENZA A/B & RSV PCR, ROUTINE No evidence of bacterial infection on today's assessment. Treat as viral etiology. Patient was educated on supportive therapies. Patient will follow up with primary care provider as needed. Patient was instructed to immediately proceed to emergency room for any new, worsening, or symptoms lasting longer than anticipated. The patient's clinical presentation is otherwise unremarkable at this time. Based on exam and clinical finding, the patient is stable for discharge. Plan of care was discussed with patient. Patient verbalizes understanding and agrees to plan of care. This note was generated using [employer] software. It may contain errors in wording, punctuation, or spelling. Wing Guerrero APRN.CNP History and Record Review Clinical information obtained from an independent historian. History obtained from or confirmed by: parent. External record(s) reviewed: prior outpatient record. Disposition The patient was discharged. OTC Medications were advised: Procedures documented in this encounter [facility] 11-12-2024 Telephone encounter Note Patient positive for BV and Yeast called and discussed results with the patient. Medications sent to [facility]. [facility] 11-12-2024 Miscellaneous Notes Patient positive for BV and Yeast called and discussed results with the patient. Medications sent to [facility]. documented in this encounter [facility] 11-11-2024 Note HNO ID: [id number] Author: VEDA LEWIS PA Service: ? Author Type: Physician Director Of Casework Department Type: Progress Notes Filed: 11/11/2024 10:01 Note Text: [facility] Subjective Becky Hill is a 33 year old female. Patient presents with: Urinary Problem: Possible uti, burning with urination x 2 days HPI Dysuria: - Dysuria x2 days, worsening today. - Denies hematuria, increased urinary frequency, or urgency. - Currently menstruating. No concern . + tubal ligation. Pruritus: - Vaginal pruritus; denies discharge. - Denies concern for STIs. 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 - Improved today. - Denies abdominal pain, fevers, or emesis. Review of Systems Constitutional: (-) fever Gastrointestinal: (-) abdominal pain, (-) vomiting Genitourinary: (+) dysuria, (+) vaginal pruritus, (-) urinary frequency, (-) vaginal discharge Objective BP 100/62 Pulse 75 Temp 36.7 ?C (98 ?F) Resp 18 Wt 51.7 kg (113 lb 15.7 oz) LMP 02/02/2024 (Approximate) SpO2 99% BMI 17.08 kg/m? Physical Exam Vitals and nursing note reviewed. Constitutional: General: She is not in acute distress. Appearance: Normal appearance. She is not toxic-appearing. HENT: Mouth/Throat: Mouth: Mucous membranes are moist. Cardiovascular: Rate and Rhythm: Normal rate and regular rhythm. Pulmonary: Effort: Pulmonary effort is normal. Breath sounds: Normal breath sounds. Abdominal: General: Abdomen is flat. Palpations: Abdomen is soft. Tenderness: There is no abdominal tenderness. There is no right CVA tenderness, left CVA tenderness, guarding or rebound. Genitourinary: Comments: Deferred Skin: General: Skin is warm and dry. Neurological: Mental Status: She is alert. {1. Burning with urination (R30.0) - Hematuria noted on urinalysis, likely secondary to menstruation. - No evidence of infection on initial urinalysis; urine culture ordered to confirm. - No antibiotics prescribed at this time. 2. Vaginal itching (N89.8) - Differential diagnosis includes yeast infection and bacterial vaginosis. - Ordered vaginal swabs for yeast infection, bacterial vaginosis, chlamydia, and gonorrhea. - Patient to perform self-swabbing; results to be communicated in a few days. Recording using [employer] software for draft documentation of the visit was discussed with the patient/authorized hr representative; all questions welcomed and answered. Patient/authorized hr representative agreed to proceed History and Record Review External record(s) reviewed: prior outpatient record. Differential Diagnoses - Vaginitis is more likely for the following reason(s): suggested by HANDP - UTI is less likely for the following reason(s): HANDP not suggestive and laboratory studies not suggestive Disposition The patient was discharged. Procedures [facility] 11-11-2024 History of Presen t illness Narrative [facility] Subjective Becky Hill is a 33 year old female. Patient presents with: Urinary Problem: Possible uti, burning with urination x 2 days HPI Dysuria: - Dysuria x2 days, worsening today. - Denies hematuria, increased urinary frequency, or urgency. - Currently menstruating. No concern . + tubal ligation. Pruritus: - Vaginal pruritus; denies discharge. - Denies concern for STIs. 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 - Improved today. - Denies abdominal pain, fevers, or emesis. Review of Systems Constitutional: (-) fever Gastrointestinal: (-) abdominal pain, (-) vomiting Genitourinary: (+) dysuria, (+) vaginal pruritus, (-) urinary frequency, (-) vaginal discharge Objective BP 100/62 Pulse 75 Temp 36.7 C (98 F) Resp 18 Wt 51.7 kg (113 lb 15.7 oz) LMP 02/02/2024 (Approximate) SpO2 99% BMI 17.08 kg/m Physical Exam Vitals and nursing note reviewed. Constitutional: General: She is not in acute distress. Appearance: Normal appearance. She is not toxic-appearing. HENT: Mouth/Throat: Mouth: Mucous membranes are moist. Cardiovascular: Rate and Rhythm: Normal rate and regular rhythm. Pulmonary: Effort: Pulmonary effort is normal. Breath sounds: Normal breath sounds. Abdominal: General: Abdomen is flat. Palpations: Abdomen is soft. Tenderness: There is no abdominal tenderness. There is no right CVA tenderness, left CVA tenderness, guarding or rebound. Genitourinary: Comments: Deferred Skin: General: Skin is warm and dry. Neurological: Mental Status: She is alert. {1. Burning with urination (R30.0) - Hematuria noted on urinalysis, likely secondary to menstruation. - No evidence of infection on initial urinalysis; urine culture ordered to confirm. - No antibiotics prescribed at this time. 2. Vaginal itching (N89.8) - Differential diagnosis includes yeast infection and bacterial vaginosis. - Ordered vaginal swabs for yeast infection, bacterial vaginosis, chlamydia, and gonorrhea. - Patient to perform self-swabbing; results to be communicated in a few days. Recording using [employer] software for draft documentation of the visit was discussed with the patient/authorized hr representative; all questions welcomed and answered. Patient/authorized hr representative agreed to proceed History and Record Review External record(s) reviewed: prior outpatient record. Differential Diagnoses - Vaginitis is more likely for the following reason(s): suggested by H&P - UTI is less likely for the following reason(s): H&P not suggestive and laboratory studies not suggestive Disposition The patient was discharged. Procedures documented in this encounter [facility] 09-08-2024 Note HNO ID: [id number] Author: ANIYAH BREEN APRN.CAP MACHINE OPERATOR Service: ? Author Type: Nurse Practitioner Type: Progress Notes Filed: 09/08/2024 15:06 Note Text: [facility] Subjective Becky Hill is a 33 year old female. Patient presents with: Derm Problem: Hard bump on face x 2 days 33 year old female with no significant PMH presents for skin complaints Acute onset 2 days ago Cheek near nasal region Denies fever or chills Denies malaise or fatigue Denies URI sx The history is provided by the patient. No traffic engineering technician was used. Abscess This is a new problem. Episode onset: 2 days ago. The problem occurs constantly. The problem has been unchanged. Pertinent negatives include no abdominal pain, anorexia, arthralgias, change in bowel habit, chest pain, chills, congestion, coughing, diaphoresis, fatigue, fever, headaches, joint swelling, myalgias, nausea, neck pain, numbness, rash, sore throat, swollen glands, urinary symptoms, vertigo, visual change, vomiting or weakness. Nothing aggravates the symptoms. She has tried nothing for the symptoms. The treatment provided no relief. PAST MEDICAL HISTORY Diagnosis Date Abnormal Pap smear of cervix PAST SURGICAL HISTORY Procedure Laterality Date PAST SURGICAL HISTORY OF wosdom teeth ALLERGIES Azithromycin and Bactrim [Sulfamethoxazole-Trimethoprim] MEDICATIONS doxycycline (VIBRA-TABS) 100 mg tablet Take 1 tablet by mouth two times a day for 7 days. FAMILY HISTORY Problem Relation Age of Onset Cancer Mother 45 Social History Tobacco Use Smoking status: Every Day Smokeless tobacco: Never Tobacco comments: 4-5 cigarettes per day Vaping Use Vaping status: Never Used Substance Use Topics Alcohol use: Yes Comment: not while Drug use: No Review of Systems Constitutional: Negative for chills, diaphoresis, fatigue and fever. HENT: Negative for congestion and sore throat. Respiratory: Negative for cough. Cardiovascular: Negative for chest pain. Gastrointestinal: Negative for abdominal pain, anorexia, change in bowel habit, nausea and vomiting. Musculoskeletal: Negative for arthralgias, joint swelling, myalgias and neck pain. Skin: Negative for rash. Neurological: Negative for vertigo, weakness, numbness and headaches. Objective BP 98/62 Pulse 68 Temp 36.4 ?C (97.6 ?F) (Tympanic) Resp 18 Wt 53.1 kg (117 lb 1 oz) LMP 02/02/2024 (Approximate) BMI 17.54 kg/m? Physical Exam Vitals and nursing note reviewed. Constitutional: General: She is not in acute distress. Appearance: Normal appearance. She is normal weight. She is not ill-appearing, toxic-appearing or diaphoretic. HENT: Head: Normocephalic and atraumatic. Right Ear: Ear canal and external ear normal. Left Ear: Ear canal and external ear normal. Nose: Nose normal. No congestion or rhinorrhea. Mouth/Throat: Mouth: Mucous membranes are moist. Pharynx: No oropharyngeal exudate or posterior oropharyngeal erythema. Eyes: General: Right eye: No discharge. Left eye: No discharge. Extraocular Movements: Extraocular movements intact. Conjunctiva/sclera: Conjunctivae normal. Pupils: Pupils are equal, round, and reactive to light. Cardiovascular: Rate and Rhythm: Normal rate and regular rhythm. Pulses: Normal pulses. Heart sounds: Normal heart sounds. No murmur heard. No friction rub. Pulmonary: Effort: Pulmonary effort is normal. No respiratory distress. Breath sounds: Normal breath sounds. No stridor. No wheezing, rhonchi or rales. Chest: Chest wall: No tenderness. Abdominal: General: Abdomen is flat. There is no distension. Palpations: Abdomen is soft. There is no mass. Tenderness: There is no abdominal tenderness. There is no right CVA tenderness, left CVA tenderness, guarding or rebound. Hernia: No hernia is present. Musculoskeletal: General: No swelling, tenderness, deformity or signs of injury. Normal range of motion. Cervical back: Normal range of motion and neck supple. No rigidity. Right lower leg: No edema. Left lower leg: No edema. Lymphadenopathy: Cervical: No cervical adenopathy. Skin: General: Skin is warm and dry. Coloration: Skin is not jaundiced or pale. Findings: No bruising, erythema, lesion or rash. Neurological: General: No focal deficit present. Mental Status: She is alert and oriented to person, place, and time. Cranial Nerves: No cranial nerve deficit. Sensory: No sensory deficit. Motor: No weakness. Coordination: Coordination normal. Gait: Gait normal. Psychiatric: Mood and Affect: Mood normal. Behavior: Behavior normal. Thought Content: Thought content normal. Judgment: Judgment normal. {ASSESSMENT/PLAN: 1. Localized skin eruption - ICD9: 782.1, ICD10: R21 X 2 days Onset upon awakening NO red flags RX Doxy F/u with PCP and or derm Discussed red flags Aniyah Breen APRN.CAP MACHINE OPERATOR History and Record Review Ext (more content not included)... [facility] 07-26-2024 Telephone encounter Note Please let patient know she is negative for COVID flu and RSV [facility] Work Phone: 07-26-2024 Miscellaneous Notes Please let patient know she is negative for COVID flu and RSV documented in this encounter [facility] 07-26-2024 Note SARS-COV-2 (AGENT OF COVID-19) RNA: Not detected INFLUENZA A RNA: Not detected INFLUENZA B RNA: Not detected RESPIRATORY SYNCYTIAL VIRUS (RSV) RNA: Not detected [facility] Comment on above: Performed By: #### [id number] ####[facility]CL[facility] [id number] [place] [address] [place] 07-26-2024 Instructions Rachel Madrid APRN.CAP MACHINE OPERATOR - 07/26/2024 9:04 AM EDT ASSESSMENT/PLAN: 1. Viral illness - ICD9: 079.99, ICD10: B34.9 - Discussed viral etiology and rationale for treatment. - Symptomatic treatment with prn analgesia - Supportive care with fluids and rest - INFLUENZA A&B MOLECULAR (POC)- negative - COVID & INFLUENZA A/B & RSV PCR, ROUTINE Office Visit on 07/26/2024 Component Date Value Ref Range Status Flu A (POCT) 07/26/2024 Negative Negative Final Flu B (POCT) 07/26/2024 Negative Negative Final Procedural Control 07/26/2024 Valid Final - Follow-up with your PCP in 3-5 days if symptoms have not improved or sooner if symptoms worsen - Discussed red flags and need for immediate medical evaluation if any occur. - Discussed supportive care treatment with fluids, rest and analgesia. - Discussed expected course of illness Rachel Madrid APRN.CAP MACHINE OPERATOR Treatment for Viral Upper Respiratory Tract Infections Your body will kill off the virus by itself. Additionally, you can prime your body's immune system. This may help you get better more quickly. Drink lots of fluids Make sure you are eating well Get plenty of rest We do not have any medications that kill off these viruses. Antibiotics are used to treat bacterial infections; however, they are not active against viral infections. There are some things that might help you feel better, though. Vaporizers, humidifiers, hot showers, and hot fluids help open respiratory and sinus passages [place] [facility] [place] may offer relief of nasal and head congestion Ankush's Vapor Rub may relieve congestion Tylenol and Advil help control fevers and headaches Salt water gargles help relieve sore throats Chloraceptic spray or throat lozenges may also help relieve sore throat symptoms Occasionally, viral infections turn into something more serious. You should see your doctor or return to the Urgent Care if: You have fevers for longer than five days You have fevers above 102 degrees You are still sick after 10 days You have shortness of breath or wheezing After several days you are getting worse rather than better documented in this encounter [facility] 07-26-2024 Note HNO ID: [id number] Author: RACHEL MADRID APRN.CAP MACHINE OPERATOR Service: ? Author Type: Nurse Practitioner Type: Progress Notes Filed: 07/26/2024 09:04 Note Text: [facility] Subjective Becky Hill is a 33 year old female. Patient presents with: Headache: diarrhea x this am Headache Associated symptoms include nausea. Pertinent negatives include no fever and no vomiting. Becky Hill is a 33 year old female who presents with a scratchy throat, diarrhea, and headache for the past 2 hours. She notes exposure to her kids who were sick for 2 or 3 days but were not evaluated for their illnesses. She took tylenol this morning for a headache. Review of Systems Constitutional: Negative for chills and fever. HENT: Positive for sore throat (scratchy). Respiratory: Negative for cough. Cardiovascular: Negative. Gastrointestinal: Positive for diarrhea and nausea. Negative for vomiting. Neurological: Positive for headaches. Objective BP 96/60 Pulse 68 Temp 36.2 ?C (97.2 ?F) Resp 16 Wt 54.3 kg (119 lb 11.4 oz) LMP 02/02/2024 (Approximate) SpO2 100% BMI 17.94 kg/m? PAST MEDICAL HISTORY Diagnosis Date - Abnormal Pap smear of cervix PAST SURGICAL HISTORY Procedure Laterality Date - PAST SURGICAL HISTORY OF wosdom teeth ALLERGIES Azithromycin and Bactrim [Sulfamethoxazole-Trimethoprim] MEDICATIONS No prescriptions on file. FAMILY HISTORY Problem Relation Age of Onset - Cancer Mother 45 Social History Tobacco Use - Smoking status: Every Day - Smokeless tobacco: Never - Tobacco comments: 4-5 cigarettes per day Vaping Use - Vaping status: Never Used Substance Use Topics - Alcohol use: Yes Comment: not while - Drug use: No Physical Exam Vitals and nursing note reviewed. Constitutional: General: She is not in acute distress. Appearance: Normal appearance. She is not ill-appearing. HENT: Nose: Nose normal. Mouth/Throat: Mouth: Mucous membranes are moist. Pharynx: Oropharynx is clear. No oropharyngeal exudate or posterior oropharyngeal erythema. Cardiovascular: Rate and Rhythm: Normal rate and regular rhythm. Heart sounds: Normal heart sounds. Pulmonary: Effort: Pulmonary effort is normal. No respiratory distress. Breath sounds: Normal breath sounds. No wheezing or rales. Lymphadenopathy: Cervical: No cervical adenopathy. Skin: General: Skin is warm and dry. Findings: No erythema or rash. Neurological: Mental Status: She is alert. ASSESSMENT/PLAN: 1. Viral illness - ICD9: 079.99, ICD10: B34.9 - Discussed viral etiology and rationale for treatment. - Symptomatic treatment with prn analgesia - Supportive care with fluids and rest - INFLUENZA AANDB MOLECULAR (POC)- negative - COVID AND INFLUENZA A/B AND RSV PCR, ROUTINE Office Visit on 07/26/2024 Component Date Value Ref Range Status - Flu A (POCT) 07/26/2024 Negative Negative Final - Flu B (POCT) 07/26/2024 Negative Negative Final - Procedural Control 07/26/2024 Valid Final - Follow-up with your PCP in 3-5 days if symptoms have not improved or sooner if symptoms worsen - Discussed red flags and need for immediate medical evaluation if any occur. - Discussed supportive care treatment with fluids, rest and analgesia. - Discussed expected course of illness Rachel Madrid APRN.CAP MACHINE OPERATOR Differential Diagnoses - viral illness is more likely for the following reason(s): suggested by HANDP - influenza is less likely for the following reason(s): laboratory studies not suggestive and HANDP not suggestive Disposition The patient was discharged. Procedures [facility] 07-26-2024 History of Presen t illness Narrative [facility] Subjective Becky Hill is a 33 year old female. Patient presents with: Headache: diarrhea x this am Headache Associated symptoms include nausea. Pertinent negatives include no fever and no vomiting. Becky Hill is a 33 year old female who presents with a scratchy throat, diarrhea, and headache for the past 2 hours. She notes exposure to her kids who were sick for 2 or 3 days but were not evaluated for their illnesses. She took tylenol this morning for a headache. Review of Systems Constitutional: Negative for chills and fever. HENT: Positive for sore throat (scratchy). Respiratory: Negative for cough. Cardiovascular: Negative. Gastrointestinal: Positive for diarrhea and nausea. Negative for vomiting. Neurological: Positive for headaches. Objective BP 96/60 Pulse 68 Temp 36.2 C (97.2 F) Resp 16 Wt 54.3 kg (119 lb 11.4 oz) LMP 02/02/2024 (Approximate) SpO2 100% BMI 17.94 kg/m PAST MEDICAL HISTORY Diagnosis Date Abnormal Pap smear of cervix PAST SURGICAL HISTORY Procedure Laterality Date PAST SURGICAL HISTORY OF wosdom teeth ALLERGIES Azithromycin and Bactrim [Sulfamethoxazole-Trimethoprim] MEDICATIONS No prescriptions on file. FAMILY HISTORY Problem Relation Age of Onset Cancer Mother 45 Social History Tobacco Use Smoking status: Every Day Smokeless tobacco: Never Tobacco comments: 4-5 cigarettes per day Vaping Use Vaping status: Never Used Substance Use Topics Alcohol use: Yes Comment: not while Drug use: No Physical Exam Vitals and nursing note reviewed. Constitutional: General: She is not in acute distress. Appearance: Normal appearance. She is not ill-appearing. HENT: Nose: Nose normal. Mouth/Throat: Mouth: Mucous membranes are moist. Pharynx: Oropharynx is clear. No oropharyngeal exudate or posterior oropharyngeal erythema. Cardiovascular: Rate and Rhythm: Normal rate and regular rhythm. Heart sounds: Normal heart sounds. Pulmonary: Effort: Pulmonary effort is normal. No respiratory distress. Breath sounds: Normal breath sounds. No wheezing or rales. Lymphadenopathy: Cervical: No cervical adenopathy. Skin: General: Skin is warm and dry. Findings: No erythema or rash. Neurological: Mental Status: She is alert. ASSESSMENT/PLAN: 1. Viral illness - ICD9: 079.99, ICD10: B34.9 - Discussed viral etiology and rationale for treatment. - Symptomatic treatment with prn analgesia - Supportive care with fluids and rest - INFLUENZA A&B MOLECULAR (POC)- negative - COVID & INFLUENZA A/B & RSV PCR, ROUTINE Office Visit on 07/26/2024 Component Date Value Ref Range Status Flu A (POCT) 07/26/2024 Negative Negative Final Flu B (POCT) 07/26/2024 Negative Negative Final Procedural Control 07/26/2024 Valid Final - Follow-up with your PCP in 3-5 days if symptoms have not improved or sooner if symptoms worsen - Discussed red flags and need for immediate medical evaluation if any occur. - Discussed supportive care treatment with fluids, rest and analgesia. - Discussed expected course of illness Rachel Madrid APRN.TORSTEN Differential Diagnoses - viral illness is more likely for the following reason(s): suggested by H&P - influenza is less likely for the following reason(s): laboratory studies not suggestive and H&P not suggestive Disposition The patient was discharged. Procedures documented in this encounter [facility] 04-03-2024 Telephone encounter Note Patient given results and verbalized understanding of instructions given. Maria Luisa Vines LPN [facility] 04-03-2024 Miscellaneous Notes Patient given results and verbalized understanding of instructions given. Maria Luisa Vines LPN Left message for patient to return call. Maria Luisa Vines LPN Negative COVID flu RSV documented in this encounter [facility] 04-01-2024 Telephone encounter Note Left message for patient to return call. Maria Luisa Vines LPN [facility] 04-01-2024 Telephone encounter Note Negative COVID flu RSV [facility] Work Phone: 03-31-2024 History of Presen t illness Narrative Subjective HPI Nontoxic-appearing female presents urgent care chief complaint nasal congestion chills vomiting fatigue. Vomited 3 times yesterday. None today. Been around cousin who was sick similar signs symptoms she was told she had a viral illness by the doctors. Denies any abdominal pain. No fevers. No chest pain or productive cough. Past medical history prescription medications allergies reviewed .Patient presents with: Congested: some congestion, chills and vomiting x 1 day PAST MEDICAL HISTORY Diagnosis Date Abnormal Pap smear of cervix PAST SURGICAL HISTORY Procedure Laterality Date PAST SURGICAL HISTORY OF wosdom teeth ALLERGIES Azithromycin and Bactrim [Sulfamethoxazole-Trimethoprim] MEDICATIONS No prescriptions on file. FAMILY HISTORY Problem Relation Age of Onset Cancer Mother 45 Social History Tobacco Use Smoking status: Every Day Smokeless tobacco: Never Tobacco comments: 4-5 cigarettes per day Vaping Use Vaping status: Never Used Substance Use Topics Alcohol use: Yes Comment: not while Drug use: No BP 92/60 Pulse 88 Temp 36.1 C (96.9 F) Resp 16 Wt 50.5 kg (111 lb 5.3 oz) LMP 02/02/2024 (Approximate) SpO2 95% BMI 16.68 kg/m Review of Systems Constitutional: Positive for chills and malaise/fatigue. Negative for fever. HENT: Positive for congestion. Negative for ear discharge, ear pain, sinus pain and sore throat. Eyes: Negative for blurred vision, pain, discharge and redness. Respiratory: Negative for cough, hemoptysis, sputum production, shortness of breath, wheezing and stridor. Cardiovascular: Negative for chest pain. Gastrointestinal: Positive for vomiting. Negative for abdominal pain, diarrhea and nausea. Musculoskeletal: Positive for myalgias. Skin: Negative for itching and rash. Neurological: Negative for dizziness and headaches. Objective Physical Exam Constitutional: General: She is not in acute distress. Appearance: She is not diaphoretic. HENT: Head: Normocephalic. Jaw: No trismus, tenderness, swelling or pain on movement. Mouth/Throat: Mouth: Mucous membranes are moist. Pharynx: Oropharynx is clear. Uvula midline. No pharyngeal swelling, oropharyngeal exudate, posterior oropharyngeal erythema or uvula swelling. Eyes: Conjunctiva/sclera: Conjunctivae normal. Pupils: Pupils are equal, round, and reactive to light. Cardiovascular: Rate and Rhythm: Normal rate and regular rhythm. Heart sounds: Normal heart sounds. Pulmonary: Effort: Pulmonary effort is normal. No tachypnea, accessory muscle usage or respiratory distress. Breath sounds: Normal breath sounds. No stridor. No wheezing, rhonchi or rales. Abdominal: General: There is no distension. Palpations: Abdomen is soft. Tenderness: There is no abdominal tenderness. There is no guarding or rebound. Musculoskeletal: Cervical back: Normal range of motion and neck supple. No edema, erythema, rigidity or tenderness. No pain with movement. Normal range of motion. Lymphadenopathy: Cervical: No cervical adenopathy. Skin: General: Skin is warm and dry. Neurological: Mental Status: She is alert and oriented to person, place, and time. ASSESSMENT/PLAN: 1. Viral illness - ICD9: 079.99, ICD10: B34.9 - Discussed viral etiology and rationale for treatment. - Symptomatic treatment with prn analgesia - Supportive care with fluids and rest - COVID & INFLUENZA A/B & RSV PCR, ROUTINE Patient was educated on supportive therapies. Patient will follow up with primary care provider as needed. Patient was instructed to immediately proceed to emergency room for any new, worsening, or symptoms lasting longer than anticipated. The patient's clinical presentation is otherwise unremarkable at this time. Based on exam and clinical finding, the patient is stable for discharge. Plan of care was discussed with patient. Patient verbalizes understanding and agrees to plan of care. This note was generated using [employer] software. It may contain errors in wording, punctuation, or spelling. Wing Guerrero APRN.TORSTEN documented in this encounter [facility] 03-31-2024 Note HNO ID: [id number] Author: WING GUERRERO APRN.TORSTEN Service: ? Author Type: Nurse Practitioner Type: Progress Notes Filed: 03/31/2024 12:55 Note Text: Subjective HPI Nontoxic-appearing female presents urgent care chief complaint nasal congestion chills vomiting fatigue. Vomited 3 times yesterday. None today. Been around cousin who was sick similar signs symptoms she was told she had a viral illness by the doctors. Denies any abdominal pain. No fevers. No chest pain or productive cough. Past medical history prescription medications allergies reviewed .Patient presents with: Congested: some congestion, chills and vomiting x 1 day PAST MEDICAL HISTORY Diagnosis Date Abnormal Pap smear of cervix PAST SURGICAL HISTORY Procedure Laterality Date PAST SURGICAL HISTORY OF wosdom teeth ALLERGIES Azithromycin and Bactrim [Sulfamethoxazole-Trimethoprim] MEDICATIONS No prescriptions on file. FAMILY HISTORY Problem Relation Age of Onset Cancer Mother 45 Social History Tobacco Use Smoking status: Every Day Smokeless tobacco: Never Tobacco comments: 4-5 cigarettes per day Vaping Use Vaping status: Never Used Substance Use Topics Alcohol use: Yes Comment: not while Drug use: No BP 92/60 Pulse 88 Temp 36.1 ?C (96.9 ?F) Resp 16 Wt 50.5 kg (111 lb 5.3 oz) LMP 02/02/2024 (Approximate) SpO2 95% BMI 16.68 kg/m? Review of Systems Constitutional: Positive for chills and malaise/fatigue. Negative for fever. HENT: Positive for congestion. Negative for ear discharge, ear pain, sinus pain and sore throat. Eyes: Negative for blurred vision, pain, discharge and redness. Respiratory: Negative for cough, hemoptysis, sputum production, shortness of breath, wheezing and stridor. Cardiovascular: Negative for chest pain. Gastrointestinal: Positive for vomiting. Negative for abdominal pain, diarrhea and nausea. Musculoskeletal: Positive for myalgias. Skin: Negative for itching and rash. Neurological: Negative for dizziness and headaches. Objective Physical Exam Constitutional: General: She is not in acute distress. Appearance: She is not diaphoretic. HENT: Head: Normocephalic. Jaw: No trismus, tenderness, swelling or pain on movement. Mouth/Throat: Mouth: Mucous membranes are moist. Pharynx: Oropharynx is clear. Uvula midline. No pharyngeal swelling, oropharyngeal exudate, posterior oropharyngeal erythema or uvula swelling. Eyes: Conjunctiva/sclera: Conjunctivae normal. Pupils: Pupils are equal, round, and reactive to light. Cardiovascular: Rate and Rhythm: Normal rate and regular rhythm. Heart sounds: Normal heart sounds. Pulmonary: Effort: Pulmonary effort is normal. No tachypnea, accessory muscle usage or respiratory distress. Breath sounds: Normal breath sounds. No stridor. No wheezing, rhonchi or rales. Abdominal: General: There is no distension. Palpations: Abdomen is soft. Tenderness: There is no abdominal tenderness. There is no guarding or rebound. Musculoskeletal: Cervical back: Normal range of motion and neck supple. No edema, erythema, rigidity or tenderness. No pain with movement. Normal range of motion. Lymphadenopathy: Cervical: No cervical adenopathy. Skin: General: Skin is warm and dry. Neurological: Mental Status: She is alert and oriented to person, place, and time. ASSESSMENT/PLAN: 1. Viral illness - ICD9: 079.99, ICD10: B34.9 - Discussed viral etiology and rationale for treatment. - Symptomatic treatment with prn analgesia - Supportive care with fluids and rest - COVID AND INFLUENZA A/B AND RSV PCR, ROUTINE Patient was educated on supportive therapies. Patient will follow up with primary care provider as needed. Patient was instructed to immediately proceed to emergency room for any new, worsening, or symptoms lasting longer than anticipated. The patient's clinical presentation is otherwise unremarkable at this time. Based on exam and clinical finding, the patient is stable for discharge. Plan of care was discussed with patient. Patient verbalizes understanding and agrees to plan of care. This note was generated using [employer] software. It may contain errors in wording, punctuation, or spelling. Wing Guerrero APRN.[facility] 02-20-2024 Telephone encounter Note Patient phoned asking if she received all of her lab results from [facility]. Advised all labs were addressed and can view results on [employer]. Patient agreeable. [facility] 02-20-2024 Miscellaneous Notes Patient phoned asking if she received all of her lab results from [facility]. Advised all labs were addressed and can view results on [employer]. Patient agreeable. documented in this encounter [facility] 02-19-2024 Telephone encounter Note Spoke with patient. Given message from provider's office. Patient verbalizes understanding. Bernadette Calderon RN [facility] 02-19-2024 Miscellaneous Notes Spoke with patient. Given message from provider's office. Patient verbalizes understanding. Bernadette Calderon RN Left VM instructing patient to return call to receive results. Kimberley Botello MA In addition to initial message about BV and yeast - blood test was positive for HSV meaning she has had a herpes infection at some point in her life - usually a cold sore, but the location cannot be pinpointed by a blood test. Unable to reach patient. Left VM to return call to office. Please read below and advise. Aria Lawrence MA Please advise patient the test was positive for BV and yeast infection. Prescriptions were sent to her pharmacy to treat these. Do not drink alcohol while taking flagyl. Negative for trichomonas, gonorrhea and chlamydia. Blood tests are still processing. Rachel Madrid APRN.CAP MACHINE OPERATOR documented in this encounter [facility] 02-19-2024 Telephone encounter Note Left VM instructing patient to return call to receive results. Kimberley Botello MA [facility] 02-19-2024 Telephone encounter Note In addition to initial message about BV and yeast - blood test was positive for HSV meaning she has had a herpes infection at some point in her life - usually a cold sore, but the location cannot be pinpointed by a blood test. [facility] Work Phone: 02-19-2024 Telephone encounter Note Unable to reach patient. Left VM to return call to office. Please read below and advise. Aria Lawrence MA [facility] 02-19-2024 Telephone encounter Note Please advise patient the test was positive for BV and yeast infection. Prescriptions were sent to her pharmacy to treat these. Do not drink alcohol while taking flagyl. Negative for trichomonas, gonorrhea and chlamydia. Blood tests are still processing. Rachel Madrid APRN.CAP MACHINE OPERATOR [facility] 02-18-2024 History of Presen t illness Narrative This note was created using NoteWriter. Subjective Becky Hill is a 33 year old female. Relevant PMH and allergies reviewed: Pt is a 33 year old female who presents today for STD check. Pt states that yesterday she has unprotected sex with a new partner and would like to be tested. Pt denies any symptoms after exposure, but would like to be tested to be sure. Pt denies changes in discharge, rash, redness, itchiness, frequency, abdominal pressure and odor changes. Pt denies nausea, vomiting, diarrhea, fever, chills, chest pain and SOB. Pt has not had any changes to her soaps and detergents and has not been on any new antibiotics. The history is provided by the patient. No traffic engineering technician was used. Female Gu Problem This is a new problem. The current episode started yesterday. The onset is undetermined. The problem has been unchanged. The patient is experiencing no pain. Nothing relieves the symptoms. Nothing aggravates the symptoms. Pertinent negatives include no chest pain, no anorexia, no chills, no fever, no abdominal pain, no constipation, no diarrhea, no nausea, no vomiting, no dysuria, no frequency, no hematuria, no pelvic pain, no urgency, no vaginal discharge, no headaches, no sore throat, no back pain, no flank pain, no joint pain, no cough, no shortness of breath and no rash. There has been no history of trauma. Urine output has been normal. She is currently Sexually active. She has 1 sexual partner. Services received include tests performed. PAST MEDICAL HISTORY Diagnosis Date Abnormal Pap smear of cervix PAST SURGICAL HISTORY Procedure Laterality Date PAST SURGICAL HISTORY OF wosdom teeth ALLERGIES Azithromycin and Bactrim [Sulfamethoxazole-Trimethoprim] MEDICATIONS No prescriptions on file. FAMILY HISTORY Problem Relation Age of Onset Cancer Mother 45 Social History Tobacco Use Smoking status: Every Day Smokeless tobacco: Never Tobacco comments: 4-5 cigarettes per day Vaping Use Vaping status: Never Used Substance Use Topics Alcohol use: Yes Comment: not while Drug use: No Review of Systems Constitutional: Negative for chills and fever. HENT: Negative for sore throat. Respiratory: Negative for cough and shortness of breath. Cardiovascular: Negative for chest pain. Gastrointestinal: Negative for abdominal pain, anorexia, constipation, diarrhea, nausea and vomiting. Genitourinary: Negative for dysuria, flank pain, frequency, hematuria, pelvic pain, urgency and vaginal discharge. Musculoskeletal: Negative for back pain and joint pain. Skin: Negative for rash. Neurological: Negative for headaches. PAST MEDICAL HISTORY Diagnosis Date Abnormal Pap smear of cervix PAST SURGICAL HISTORY Procedure Laterality Date PAST SURGICAL HISTORY OF wosdom teeth ALLERGIES Azithromycin and Bactrim [Sulfamethoxazole-Trimethoprim] MEDICATIONS No prescriptions on file. FAMILY HISTORY Problem Relation Age of Onset Cancer Mother 45 Social History Tobacco Use Smoking status: Every Day Smokeless tobacco: Never Tobacco comments: 4-5 cigarettes per day Vaping Use Vaping status: Never Used Substance Use Topics Alcohol use: Yes Comment: not while Drug use: No Objective BP 114/70 Pulse 70 Temp 36.7 C (98 F) (Left Tympanic) Resp 16 Wt 50.6 kg (111 lb 8.8 oz) LMP 02/02/2024 (Approximate) SpO2 97% BMI 16.71 kg/m Physical Exam Vitals and nursing note reviewed. Constitutional: General: She is not in acute distress. Appearance: Normal appearance. She is not ill-appearing. HENT: Head: Normocephalic and atraumatic. Mouth/Throat: Mouth: Mucous membranes are moist. Eyes: Conjunctiva/sclera: Conjunctivae normal. Pupils: Pupils are equal, round, and reactive to light. Cardiovascular: Rate and Rhythm: Normal rate and regular rhythm. Pulses: Normal pulses. Heart sounds: Normal heart sounds. Pulmonary: Effort: Pulmonary effort is normal. No respiratory distress. Breath sounds: Normal breath sounds. No wheezing. Abdominal: General: Abdomen is flat. Palpations: Abdomen is soft. Tenderness: There is no abdominal tenderness. There is no right CVA tenderness, left CVA tenderness or guarding. Genitourinary: Vagina: No vaginal discharge. Musculoskeletal: Cervical back: Normal range of motion and neck supple. Skin: General: Skin is warm. Capillary Refill: Capillary refill takes less than 2 seconds. Neurological: Mental Status: She is alert. Psychiatric: Mood and Affect: Mood normal. Behavior: Behavior normal. Assessment and Plan ASSESSMENT/PLAN: 1. Encounter for screening examination for sexually transmitted disease - ICD9: V74.5, ICD10: Z11.3 -Requesting STD testing after unprotected sex yesterday -Not currently complaining of any symptoms -declines pelvic exam -Self swab performed -Will call with results - GONORRHEA/CHLAMYDIA NAAT - HIV 1/2 COMBO WITH REFLEX TO DIFFERENTIATION - SYPHILIS TOTAL W/REFLEX - TRICHOMONAS VAGINALIS NAAT - HEP REMOTE PANEL BL - HERPES SIMPLEX TYPE 1 AND 2 IG - SANTOS/TRICHOMONAS NAAT - BACTERIAL VAGINOSIS NAAT -If positive for bloodborne STD pt would have to be referred to infectious disease [facility] Student TEACHING PROVIDER (Physician/PA/CUSTOMS APPRAISER) NOTE OF PERSONAL INVOLVEMENT IN CARE: I have personally seen and examined the patient and performed the medical decision-making components. I have reviewed the Advanced Practice Registered Nurse (CUSTOMS APPRAISER) Student's documentation and verified the findings in the note as written. Any additions or changes are noted in bold/italics. Signature: Aniyah Jones: 02/18/2024 Time: 6:44 PM documented in this encounter [facility] 01-26-2024 Telephone encounter Note Left message for patient to return call. Mariella Hermosillo MA [facility] 01-26-2024 Miscellaneous Notes Left message for patient to return call. Mariella Hermosillo MA Images from the original note were not included. Patient has not read message. Please reach out and advise of below. documented in this encounter [facility] 01-26-2024 Telephone encounter Note Images from the original note were not included. Patient has not read message. Please reach out and advise of below. [facility] Work Phone: 01-25-2024 Telephone encounter Note Patient given results and verbalized understanding of instructions given. Maria Luisa Vines LPN [facility] 01-25-2024 Miscellaneous Notes Patient given results and verbalized understanding of instructions given. Maria Luisa Vines LPN Left message for patient to return call. Maria Luisa Vines LPN Vaginal test positive for yeast and bacterial vaginosis. Negative for gonorrhea and chlamydia. Diflucan prescribed at the visit should help with yeast. Metronidazole prescription sent to the pharmacy to treat BV. documented in this encounter [facility] 01-23-2024 Telephone encounter Note Left message for patient to return call. Maria Luisa Vines LPN [facility] 01-23-2024 Telephone encounter Note Vaginal test positive for yeast and bacterial vaginosis. Negative for gonorrhea and chlamydia. Diflucan prescribed at the visit should help with yeast. Metronidazole prescription sent to the pharmacy to treat BV. [facility] 01-22-2024 History of Presen t illness Narrative This note was created using [employer]. Subjective Becky Hill is a 33 year old female. 33 year old female with no significant PMH presents for multiple complaints. Acute onset 3 days ago +body aches + nausea +hot flashes +chills +sore throat +low grade fever +fatigue Denies cough Denies emesis Denies diarrhea Denies abdominal pain UTI sx Acute onset one month ago Seen in the emergency room 11/04/23 Provided Keflex. Completed. Denies relief of symptoms. Has been using Azos without relief of symptoms. Lower back pain x 1 day +burning +frequency +vaginal discharge +thick +white (Endorses she has discharge at baseline) Denies vaginal bleeding LMP-last week The history is provided by the patient. No traffic engineering technician was used. Female Gu Problem This is a new problem. The current episode started more than 2 weeks ago. The onset was gradual. The problem occurs continuously. The problem has been unchanged. The pain is mild. Nothing relieves the symptoms. Nothing aggravates the symptoms. Associated symptoms include chills, nausea, dysuria, frequency, urgency, vaginal discharge, headaches, sore throat and back pain. Pertinent negatives include no chest pain, no anorexia, no fever, no abdominal pain, no constipation, no diarrhea, no vomiting, no hematuria, no pelvic pain, no vaginal bleeding, no vaginal pain, no flank pain, no joint pain, no cough, no shortness of breath, no rash and no dyspareunia. There has been no history of trauma. Urine output has been normal. The last void occurred Less than 6 hours ago. She is currently Sexually active. She has 1 sexual partner. She is not . She has not missed her period. Her past medical history is significant for UTI. Recently, medical care has been given at another facility. Services received include medications given and tests performed. Flu Like Symptoms This is a new problem. The current episode started in the past 7 days. The problem occurs constantly. The problem has been unchanged. Associated symptoms include chills, congestion, fatigue, headaches, myalgias, nausea, a sore throat and urinary symptoms. Pertinent negatives include no abdominal pain, anorexia, chest pain, coughing, fever, neck pain, numbness, rash or vomiting. Nothing aggravates the symptoms. She has tried nothing for the symptoms. The treatment provided no relief. PAST MEDICAL HISTORY No date: Abnormal Pap smear of cervix PAST SURGICAL HISTORY No date: PAST SURGICAL HISTORY OF Comment: wosdom teeth ALLERGIES Azithromycin and Bactrim [Sulfamethoxazole-Trimethoprim] MEDICATIONS fluconazole (DIFLUCAN) 150 mg tablet Take 1 tablet by mouth once daily for 1 day. phenazopyridine (PYRIDIUM) 200 mg tablet Take 1 tablet by mouth three times a day as needed. (Patient not taking: Reported on 09/04/2023) PNV no.95/ferrous fum/folic ac ( ORAL) Take by mouth. (Patient not taking: Reported on 06/14/2023) FAMILY HISTORY Problem Relation Age of Onset Cancer Mother 45 Social History Tobacco Use Smoking status: Every Day Smokeless tobacco: Never Tobacco comments: 4-5 cigarettes per day Vaping Use Vaping status: Never Used Substance Use Topics Alcohol use: Yes Comment: not while Drug use: No Review of Systems Constitutional: Positive for chills and fatigue. Negative for fever. HENT: Positive for congestion, postnasal drip, rhinorrhea, sinus pain and sore throat. Eyes: Negative for pain, discharge and itching. Respiratory: Negative for cough and shortness of breath. Cardiovascular: Negative for chest pain. Gastrointestinal: Positive for nausea. Negative for abdominal pain, anorexia, constipation, diarrhea and vomiting. Genitourinary: Positive for dysuria, frequency, urgency and vaginal discharge. Negative for dyspareunia, flank pain, hematuria, pelvic pain, vaginal bleeding and vaginal pain. Musculoskeletal: Positive for back pain and myalgias. Negative for joint pain and neck pain. Skin: Negative for color change, pallor and rash. Allergic/Immunologic: Negative for environmental allergies, food allergies and immunocompromised state. Neurological: Positive for headaches. Negative for dizziness, facial asymmetry and numbness. Hematological: Negative for adenopathy. Does not bruise/bleed easily. Psychiatric/Behavioral: Negative for agitation and behavioral problems. Objective BP 96/64 Pulse 63 Temp 36.6 C (97.8 F) Resp 20 Wt 50 kg (110 lb 3.7 oz) LMP 01/14/2024 (Approximate) SpO2 100% BMI 16.52 kg/m Physical Exam Vitals and nursing note reviewed. Constitutional: General: She is not in acute distress. Appearance: Normal appearance. She is normal weight. She is not ill-appearing, toxic-appearing or diaphoretic. HENT: Head: Normocephalic and atraumatic. Right Ear: Ear canal and external ear normal. Left Ear: Ear canal and external ear normal. Nose: Nose normal. No congestion or rhinorrhea. Mouth/Throat: Mouth: Mucous membranes are moist. Pharynx: No oropharyngeal exudate or posterior oropharyngeal erythema. Eyes: General: Right eye: No discharge. Left eye: No discharge. Extraocular Movements: Extraocular movements intact. Conjunctiva/sclera: Conjunctivae normal. Pupils: Pupils are equal, round, and reactive to light. Cardiovascular: Rate and Rhythm: Normal rate and regular rhythm. Pulses: Normal pulses. Heart sounds: Normal heart sounds. No murmur heard. No friction rub. Pulmonary: Effort: Pulmonary effort is normal. No respiratory distress. Breath sounds: Normal breath sounds. No stridor. No wheezing, rhonchi or rales. Chest: Chest wall: No tenderness. Abdominal: General: Abdomen is flat. There is no distension. Palpations: Abdomen is soft. There is no mass. Tenderness: There is no abdominal tenderness. There is no right CVA tenderness, left CVA tenderness, guarding or rebound. Hernia: No hernia is present. Genitourinary: Comments: Declines pelvic exam. Self swabs obtained Musculoskeletal: General: No swelling, tenderness, deformity or signs of injury. Normal range of motion. Cervical back: Normal range of motion and neck supple. No rigidity. Right lower leg: No edema. Left lower leg: No edema. Lymphadenopathy: Cervical: No cervical adenopathy. Skin: General: Skin is warm and dry. Capillary Refill: Capillary refill takes less than 2 seconds. Coloration: Skin is not jaundiced or pale. Findings: No bruising, erythema, lesion or rash. Neurological: General: No focal deficit present. Mental Status: She is alert and oriented to person, place, and time. Cranial Nerves: No cranial nerve deficit. Sensory: No sensory deficit. Motor: No weakness. Coordination: Coordination normal. Gait: Gait normal. Psychiatric: Mood and Affect: Mood normal. Behavior: Behavior normal. Thought Content: Thought content normal. Judgment: Judgment normal. Assessment and Plan ASSESSMENT/PLAN: 1. Burning with urination - ICD9: 788.1, ICD10: R30.0 (primary diagnosis) X 1 month Recurrent Seen in ED 11/04/23 Keflex No improvement - UA positive for nitrates (patient took Azos) - Send urine for culture Discussed with patient unlikely UTI given sx duration and findings of urine dip. Self swab RX Diflucan and will await further results to guide treatment. - UA DIP, URINE (POC) - URINE CULTURE - SANTOS/TRICHOMONAS NAAT - GONORRHEA/CHLAMYDIA NAAT - BACTERIAL VAGINOSIS NAAT 2. URI, acute - ICD9: 465.9, ICD10: J06.9 - Discussed viral etiology and rationale for treatment. - Group A strep molecular testing negative - Symptomatic treatment with prn analgesia - Supportive care with fluids and rest - The patient may also use OTC cough and cold meds as needed and warm salt water gargles, throat lozenges and/or OTC throat spray as needed. - Follow up in 3-5 days if symptoms persist or sooner if worsening of symptoms - STREP A MOLECULAR (POC) - COVID & INFLUENZA A/B & RSV PCR, ROUTINE 3. Vaginal discharge - ICD9: 623.5, ICD10: N89.8 See above - SANTOS/TRICHOMONAS NAAT - GONORRHEA/CHLAMYDIA NAAT - BACTERIAL VAGINOSIS NAAT Aniyah Breen APRN.TORSTEN documented in this encounter [facility] 09-06-2023 Miscellaneous Notes Talked to patient and she is still having symptoms and has already picked up prescription at pharmacy. Lucy Melchor Please call and see if patent is having urinary symptoms still, her urine culture grew bacteria that is usual normal a skin contaminant but grew a large quantity. If she is having uti symptoms, will call in antibiotic. documented in this encounter [facility] 09-05-2023 Miscellaneous Notes Patient calling asking for her results. Went over results, notes from express care provider with understanding. Positive for yeast. Negative for trichomonas, gonorrhea and chlamydia. I have sent in a Diflucan to [facility] in [place]. Please advise patient. documented in this encounter [facility] 09-04-2023 History of Presen t illness Narrative This note was created using [employer]. Subjective Becky Hill is a 32 year old female. Patient reports itching and burning with urination for three days. Reports she always has vaginal discharge but there is no unusual discharge. Patient had unprotected sex with a new partner about 2 weeks ago. UTI Associated symptoms include frequency. Review of Systems Genitourinary: Positive for dysuria and frequency. Objective BP 121/83 Pulse 62 Temp 37.2 C (98.9 F) Resp 18 Wt 52.3 kg (115 lb 4.8 oz) LMP 06/03/2023 (Approximate) SpO2 100% BMI 17.28 kg/m Physical Exam Abdominal: General: Abdomen is flat. Bowel sounds are normal. Palpations: Abdomen is soft. Tenderness: There is no abdominal tenderness. There is no right CVA tenderness or left CVA tenderness. Genitourinary: Comments: Patient declined any unusual discharge. Patient offered a pelvic exam, patient declined but is willing to self swab to rule out infection. PAST MEDICAL HISTORY Diagnosis Date Abnormal Pap smear of cervix PAST SURGICAL HISTORY Procedure Laterality Date PAST SURGICAL HISTORY OF wosdom teeth ALLERGIES Azithromycin and Bactrim [Sulfamethoxazole-Trimethoprim] MEDICATIONS phenazopyridine (PYRIDIUM) 200 mg tablet Take 1 tablet by mouth three times a day as needed. (Patient not taking: Reported on 09/04/2023) PNV no.95/ferrous fum/folic ac ( ORAL) Take by mouth. (Patient not taking: Reported on 06/14/2023) FAMILY HISTORY Problem Relation Age of Onset Cancer Mother 45 Social History Tobacco Use Smoking status: Every Day Smokeless tobacco: Never Tobacco comments: 4-5 cigarettes per day Vaping Use Vaping Use: Never used Substance Use Topics Alcohol use: Yes Comment: not while Drug use: No ASSESSMENT/PLAN: 1. Burning with urination - ICD9: 788.1, ICD10: R30.0 acute - UA positive for shereen esterase (small) - Send urine for culture - Patient education for prevention given - Patient educated on safe sex practices to prevent infection - Discussed with patient she will be notified if urine culture, other testing is positive, patient prefers to be called with results - UA DIP, URINE (POC)- shereen esterase (small) - URINE CULTURE - BACTERIAL VAGINOSIS NAAT - SANTOS/TRICHOMONAS NAAT - GONORRHEA/CHLAMYDIA NAAT Potential red flag symptoms discussed with the patient. Reviewed appropriate action plan to take if red flag symptoms occur. Patient agreeable to treatment plan. Mariella Montez Supervising provider was present and guided the care of the patient for the entire session on this date. All documentation was reviewed and agreed upon. Veronica Nava APRN.TORSTEN documented in this encounter [facility] 06-15-2023 Miscellaneous Notes Patient calling requesting lab results from urgent care center visit on 06/14/2023. Patient denies any new or worsening symptoms of which a provider is not aware:Yes. COVID,Flu and RSV results reviewed. Patient verbalized understanding. GO TO THE EMERGENCY ROOM OR CALL 911 IF: * You develop any new symptoms * Your condition worsens * You are concerned or anxious about your condition for any other reason. If you have any questions, you can call Nurse client solutions director back. documented in this encounter [facility] 07-28-2015 History of Past i llness Narrative Problem Noted Date Diagnosed Date Resolved Date Encounter for sterilization 07/28/2015 06/17/2018 Overview: July 28, 2015 R/B/A/P to tubal reviewed, title 19 signed. D/w her permanent, irreversible risk of failure and regret. 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 Steffany Ruano MD October 11, 2015 D/w her not a contraindication to vaginal delivery and chance of transmission is small and chance of transmission even if has c/s. Would like to proceed w/ vaginal delivery if clinically reasonable. Steffany Ruano MD Supervision of other high ri sk pregnancies, second trimester 03/13/2015 10/31/2015 documented as of this encounter (statuses as of 06/15/2023) [facility] History of Past illness Narrative* Problem Noted Date Diagnosed Date Resolved Date Encounter for sterilization 07/28/2015 06/17/2018 Overview: July 28, 2015 R/B/A/P to tubal reviewed, title 19 signed. D/w her permanent, irreversible risk of failure and regret. 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 Steffany Ruano MD October 11, 2015 D/w her not a contraindication to vaginal delivery and chance of transmission is small and chance of transmission even if has c/s. Would like to proceed w/ vaginal delivery if clinically reasonable. Steffany Ruano MD Supervision of other high ri sk pregnancies, second trimester 03/13/2015 10/31/2015 documented as of this encounter (statuses as of 09/05/2023) [facility] History of Past illness Narrative* Problem Noted Date Diagnosed Date Resolved Date Encounter for sterilization 07/28/2015 06/17/2018 Overview: July 28, 2015 R/B/A/P to tubal reviewed, title 19 signed. D/w her permanent, irreversible risk of failure and regret. 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 Steffany Ruano MD October 11, 2015 D/w her not a contraindication to vaginal delivery and chance of transmission is small and chance of transmission even if has c/s. Would like to proceed w/ vaginal delivery if clinically reasonable. Steffany Ruano MD Supervision of other high ri sk pregnancies, second trimester 03/13/2015 10/31/2015 documented as of this encounter (statuses as of 09/06/2023) [facility] Burning with urination- Primary Dysuria documented in this encounter [facility] note* Diagnosis Burning with urination- Primary Dysuria URI, acute Acute upper respiratory infections of unspecified site Vaginal discharge Leukorrhea, not specified as infective documented in this encounter [facility] note* Diagnosis Encounter for screening examination for sexually transmitted disease- Primary documented in this encounter [facility] note* Diagnosis Vaginal yeast infection- Primary Candidiasis of vulva and vagina BV (bacterial vaginosis) Vaginitis and vulvovaginitis, unspecified documented in this encounter [facility] note* Diagnosis Viral illness- Primary Unspecified viral infection, in conditions classified elsewhere and of unspecified site documented in this encounter [facility] note* Diagnosis Viral illness- Primary Unspecified viral infection, in conditions classified elsewhere and of unspecified site documented in this encounter [facility] note* Diagnosis Burning with urination- Primary Dysuria Vaginal itching Pruritus of genital organs documented in this encounter [facility] note* Diagnosis Acute vaginitis- Primary Vaginitis and vulvovaginitis, unspecified documented in this encounter [facility] note* Diagnosis Burning with urination- Primary Dysuria Encounter for screening for bacterial sexually transmitted disease Candidal vulvovaginitis Candidiasis of vulva and vagina documented in this encounter [facility] Summary Purpose Family History No Family History Records FoundNo Family History Records FoundNo Family History Records Found Advance Directives No Advanced Directives Records FoundNo Advanced Directives Records FoundNo Advanced Directives Records Found Health Concerns Infection Onset Date Last Indicated Resolved Time COVID-19 Rule-Out 06/14/2023 06/14/2023 06/15/2023 1:46 AM EST Influenza 06/14/2023 06/14/2023 Additional Source Comments INFORMATION SOURCE (unrecogn ized section and content) DATE CREATED AUTHOR 12/07/2021 Campos Rodriguez [facility] DATE CREATED AUTHOR AUTHOR'S ORGANIZ ATION 07/17/2024 [facility] DATE CREATED AUTHOR AUTHOR'S ORGANIZ ATION 02/27/2025 [facility] Source Comments (unrecognize d section and content) In the event this informatio n is protected by the Federal Confidentiality of Alcohol and Drug Abuse Patient Records regulations: The Federal rules restrict any use of the information to criminally investigate or prosecute any alcohol or drug abuse patient.[facility] the event this information is protected by the Federal Confidentiality of Alcohol and Drug Abuse Patient Records regulations: The Federal rules restrict any use of the information to criminally investigate or prosecute any alcohol or drug abuse patient.[facility] the event this information is protected by the Federal Confidentiality of Alcohol and Drug Abuse Patient Records regulations: The Federal rules restrict any use of the information to criminally investigate or prosecute any alcohol or drug abuse patient.[facility] Center[facility] the event this information is protected by the Federal Confidentiality of Alcohol and Drug Abuse Patient Records regulations: The Federal rules restrict any use of the information to criminally investigate or prosecute any alcohol or drug abuse patient.[facility] the event this information is protected by the Federal Confidentiality of Alcohol and Drug Abuse Patient Records regulations: The Federal rules restrict any use of the information to criminally investigate or prosecute any alcohol or drug abuse patient.[facility] the event this information is protected by the Federal Confidentiality of Alcohol and Drug Abuse Patient Records regulations: The Federal rules restrict any use of the information to criminally investigate or prosecute any alcohol or drug abuse patient.[facility] the event this information is protected by the Federal Confidentiality of Alcohol and Drug Abuse Patient Records regulations: The Federal rules restrict any use of the information to criminally investigate or prosecute any alcohol or drug abuse patient.[facility] Center[facility] the event this information is protected by the Federal Confidentiality of Alcohol and Drug Abuse Patient Records regulations: The Federal rules restrict any use of the information to criminally investigate or prosecute any alcohol or drug abuse patient.[facility] Center[facility] the event this information is protected by the Federal Confidentiality of Alcohol and Drug Abuse Patient Records regulations: The Federal rules restrict any use of the information to criminally investigate or prosecute any alcohol or drug abuse patient.[facility] Center[facility] the event this information is protected by the Federal Confidentiality of Alcohol and Drug Abuse Patient Records regulations: The Federal rules restrict any use of the information to criminally investigate or prosecute any alcohol or drug abuse patient.[facility] Center[facility] the event this information is protected by the Federal Confidentiality of Alcohol and Drug Abuse Patient Records regulations: The Federal rules restrict any use of the information to criminally investigate or prosecute any alcohol or drug abuse patient.[facility] CenterIn the event this information is protected by the Federal Confidentiality of Alcohol and Drug Abuse Patient Records regulations: The Federal rules restrict any use of the information to criminally investigate or prosecute any alcohol or drug abuse patient.[facility] CenterIn the event this information is protected by the Federal Confidentiality of Alcohol and Drug Abuse Patient Records regulations: The Federal rules restrict any use of the information to criminally investigate or prosecute any alcohol or drug abuse patient.[facility] Center[facility] the event this information is protected by the Federal Confidentiality of Alcohol and Drug Abuse Patient Records regulations: The Federal rules restrict any use of the information to criminally investigate or prosecute any alcohol or drug abuse patient.[facility] Center[facility] the event this information is protected by the Federal Confidentiality of Alcohol and Drug Abuse Patient Records regulations: The Federal rules restrict any use of the information to criminally investigate or prosecute any alcohol or drug abuse patient.[facility] the event this information is protected by the Federal Confidentiality of Alcohol and Drug Abuse Patient Records regulations: The Federal rules restrict any use of the information to criminally investigate or prosecute any alcohol or drug abuse patient.[facility] CenterIn the event this information is protected by the Federal Confidentiality of Alcohol and Drug Abuse Patient Records regulations: The Federal rules restrict any use of the information to criminally investigate or prosecute any alcohol or drug abuse patient.[facility] CenterIn the event this information is protected by the Federal Confidentiality of Alcohol and Drug Abuse Patient Records regulations: The Federal rules restrict any use of the information to criminally investigate or prosecute any alcohol or drug abuse patient.[facility] Center[facility] the event this information is protected by the Federal Confidentiality of Alcohol and Drug Abuse Patient Records regulations: The Federal rules restrict any use of the information to criminally investigate or prosecute any alcohol or drug abuse patient.[facility] Reason for Visit (unrecogniz ed section and content) Reason Comments Information Reason Comments UTI Burning with urinati on x today, itching x3 days Reason Comments Results Reason Comments Sore Throat Headache x yesterday , chills x 3 days Urinary Problem States she is having burning and discomfort with urination, x 1 month was last seen in ER for same Reason Comments Results BV+, Santos+ Reason Comments Patient Question Reason Comments Congested some congestion, chi lls and vomiting x 1 day Reason Comments Headache diarrhea x this am Reason Onset Date Comments Results 07/26/2024 Left message for patient with negative results.Maryuri Araujo LPN Reason Comments Urinary Problem Possible uti, burnin g with urination x 2 days Reason Comments Chest Congestion Cough, headache, sor e throat, chest tightness and pressure, chills, low grade temp, headache, deep chest cough x 2 daysHeadache was x 4 Reason Onset Date Comments Results 12/10/2024 Reason Comments burning with urination Burning with urin ation and some itching x 2 days FOR RECORDS PERTAINING TO PATIENTS WHO ARE OR HAVE BEEN ENROLLED IN A CHEMICAL DEPENDENCY/SUBSTANCEABUSE PROGRAM, SOME INFORMATION MAY BE OMITTED. This clinical summary was aggregated from multiple sources. Caution should be exercised in using it in the provision of clinical care. This summary normalizes information from multiple sources, and as a consequence, information in this document may materially change the coding, format and clinical context of patient data. In addition, data may be omitted in some cases. CLINICAL DECISIONS SHOULD BE BASED ON THE PRIMARY CLINICAL RECORDS. [facility]. provides no warranty or guarantee of the accuracy or completeness of information in this document.
[2025-04-21] MEDS: Lactated Ringers 1,000 ML 15 ML IV (06:17)
--- NOTE | 2025-04-21 06:38 | PRE.ANES_ITS ---
ASA Classification* ASA Classification ASA Classification: 2 Assessment & Plan Anesthesia* Anesthesia Assessment Anesthesia Assessment: Discussed sedation and/or anesthesia options, risks, benefits, and alternatives with patient/parents/legal guardian/POA. Questions invited. The patient/parents/legal guardian/POA seems to understand and agrees to proceed with anesthesia plan. Reviewed the physical assessment, medical history, allergy history and patient home medications list prior to surgery/procedure/anesthetic and documented any changes. Performed airway and anesthesia risk assessments. Anesthesia Type Anesthesia Type: MAC History Source History Obtained from:: Patient and Chart Anesthesia Focused Assessment* Temperature: 98.6 F Pulse Rate: 59 Blood Pressure: 97/66 Respiratory Rate: 16 Pulse Ox: 100 Oxygen Delivery Method: Room Air Airway Assessment Mouth opens: >3 cm Mallampati Score: II Teeth Condition: Caps/Crowns (Patient has caps on #7 and #10.) and Missing (Patient has couple missing molars.) Neck Range of motion (ROM): Full ROM Labs Anesthesia Preop lab: CBC WBC, (4.4-11.0) 10.7 K/mm3 03/17/24, 09:38 RBC, (4.2-5.4) 4.57 M/mm3 03/17/24, 09:38 Hgb, (12.0-15.0) 13.7 g/dL 03/17/24, 09:38 Hct, (37-47) 42.5 % 03/17/24, 09:38 Plt Count, (150-450) 192 K/mm3 03/17/24, 09:38 CHEMISTRY Potassium, (3.5-5.1) 4.2 mmol/L 03/17/24, 09:38 Sodium, (136-145) 140 mmol/L 03/17/24, 09:38 Magnesium, (1.8-2.4) 1.8 mg/dL 10/30/15, 08:37 BUN, (7-18) 13 mg/dL 03/17/24, 09:38 Creatinine, (0.55-1.02) 0.80 mg/dL 03/17/24, 09:38 Glucose, (74-106) 84 mg/dL 03/17/24, 09:38 COAG Urine Test Negative Negative 06/30/24, 12:42 Pre-Assessment Diagnosis/Proposed Procedure Planned Operative Procedure(s): Leep Cone Dilation and Curettage Anesthesia History Anesthesia History - [facility]: Anesthesia History - [facility] Hx Hospitalization No 04/15/25 12:57 Any Problems With Anesthesia No 04/15/25 12:57 Cholinesterase deficiency No 04/15/25 12:57 You/Your Family Experience No 04/15/25 12:57 fever (hyperthermia) with Relationship Recent Exposure to Contagious No 04/21/25 06:13 Disease Does patient have nerve No 04/15/25 12:57 stimulator Patient instructed to have device shut off --Does patient have Pacemaker No 04/21/25 06:13 or ICD? When Was Last Pacemaker Check QUESTION #4 FULL TEXT: You/Your Family Experience fever (hyperthermia) with Anesthesia Last Oral Intake Last Oral intake: Last Oral Intake NPO since 04:30 04/21/25 06:13 Meds taken in AM with sips of water? Meds patient instructed to take am of surgery Any additional information?: Yes NPO since: 04:30 (Patient had black coffee at 4:30 AM.) PONV PONV - [facility]: PONV - [facility] Female Yes 04/15/25 12:57 HX of Motion Sickness No 04/15/25 12:57 HX of N/V After Surgery No 04/15/25 12:57 Non-Smoker No 04/15/25 12:57 Duration of Surgery greater No 04/15/25 12:57 than 60 minutes Number of Risk Factors 1 04/15/25 12:57 PONV Score Low Risk 04/15/25 12:57 Height & Weight Height & Weight: Anesthesia: Height & Weight Height 5 ft 8 in 04/21/25 06:13 Weight: 52 kg 04/21/25 06:13 Body Mass Index (BMI) 17.4 04/21/25 06:13 Respiratory Assessment Respiratory Assessment - [facility]: Respiratory Tract Infection Hx - [facility] Hx Respiratory Tract Infection No 04/15/25 12:57 STOP Sleep Apnea STOP Sleep Apnea - [facility]: STOP Sleep Apnea - [facility] Hx Hypertension No 04/15/25 12:57 Hx Sleep Apnea No 04/15/25 12:57 CPAP BIPAP Do you snore loudly (louder No 04/15/25 12:57 than talking or can be heard Do you often feel tired/ No 04/15/25 12:57 fatigued/ sleepy during daytime? Has anyone observed you stop No 04/15/25 12:57 breathing during sleep? STOP Results Negative 04/15/25 12:57 QUESTION #5 FULL TEXT : Do you snore loudly (louder than talking or can be heard through closed doors)? 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 Specify any problems Hx of Preganancy in last 3 No 04/15/25 12:57 Months Nurse Filling Out Transfusion CATIE 04/15/25 12:57 & Questions: Date: 04/15/25 04/15/25 12:57 Time: 12:58 04/15/25 12:57 Patient unable to answer at this time (ie. confused, unrespo /Reproduction History /Reproductive History - [facility]: /Reproductive Hx- [facility] Hx Now No 04/15/25 12:57 Gestational Age (in weeks): EDC: Hx Hx Para Hx Section SAB No 04/15/25 12:57 Does the father of the baby or his family experience fever w Father of the baby Malignant Hypertension history comment Active Medications Active Medications: Current Medications Generic Name Dose Route Start Last Admin Trade Name Freq PRN Reason Stop Dose Admin Lactated Ringer's 1,000 mls @ 15 mls/hr 04/21/25 06:00 04/21/25 06:17 IV 15 mls/hr .Q48H ALTA Administration PFSH Medical History Marijuana use Smoker Home Medications ?Medication ?Instructions ?Recorded ?Last Taken ?Type NK 04/21/25 Unknown History Allergy/AdvReac Type Severity Reaction Status Date / Time azithromycin (From Zithromax) Allergy Itching Verified 04/21/25 06:13 sulfamethoxazole (From Allergy Itching Verified 04/21/25 06:13 Bactrim) trimethoprim (From Bactrim) Allergy Itching Verified 04/21/25 06:13 Surgical History History of bilateral salpingectomy Social History household members: children housing: house Smoking Status: Current every day smoker tobacco type: cigarettes and e- cigarettes substance use type: does not use Review of Systems (Anesthesia) ROS Narrative System reviewed and no additional complaints, except as documented.
[2025-04-21] MEDS: Lidocaine 1% (5 ml sdv) 5 ML Vial IV (07:24)
[2025-04-21] MEDS: Midazolam 2 MG/2 ML Syringe IV (07:26)
--- NOTE | 2025-04-21 07:30 | CONE_PTH ---
PATIENT: KYLE HILL LOC: [facility] [place] U#:[id number] AGE/SX: 34/F ROOM: RE04/21/[address]: Dr. Ami Cornejo, MDDOB: 1990 BED: DIS: 04/21/2025 SPEC #: [id number] RECD: 04/21/25 08:02 STATUS: CRISTIANE LAVERNE #: [id number] RADHA: 04/21/25 07:[address]: Ami Cornejo DEPT: SURGICAL PATHOLOGY RECD BY: Gregory Barboza ENTERED: 04/21/25 09:42 SP TYPE: Leep Cone MARYANNE DR: No Primary Care Phys Tissues: A - UTERINE CERVIX LEEP B - UTERINE CERVIX LEEP C - Endocervical Procedures: Surgery Specimen Level IV Surgery Specimen Level V HEADER OPERATION: Leep, possible cone PRE-OP DIAGNOSIS: CIN3 - cervical dysplasia TISSUE SUBMITTED: A- Cervical leep, anterior, B- Cervical leep, posterior, C- ECC MICROSCOPIC DIAGNOSIS A. Uterine cervix, anterior, LEEP: - High grade squamous intraepithelial lesion (GLORIA III) - The inked edges of the specimen are negative for dysplasia B. Uterine, cervix, posterior, LEEP: * Few detached strips of squamous epithelium with high grade squamous intraepithelial lesion (GLORIA II - III) * The inked edges are negative for dysplasia C. Endocervix, curettage: - Endocervical tissue with chronic endocervicitis MICROSCOPIC DESCRIPTION Slides are reviewed. GROSS DESCRIPTION Received in 3 formalin containers labeled with the patient's name and date of . Designated as: A. Cervical LEEP, anterior is a 2.3 x 2.2 x 1.2 cm irregular portion of lema-pink, erythematous cervix, devoid of orientation. The presumed, cauterized ectocervix is inked black. The sectioning reveals mucoid containing cyst throughout. Entirely submitted in 3 cassettes. B. Cervical LEEP, posterior is an irregular and disrupted portion of lema-pink focally erythematous cervix, devoid of orientation collectively measuring 2.7 x 1.3 x 0.7 cm in aggregate. The presumed, cauterized ectocervix is inked green. Sectioning reveals mucoid containing cyst. Entirely submitted in 4 cassettes.C. ECC is a 1.8 x 0.9 x 0.1 cm aggregate of pink-red tissue fragments and mucoid material. Entirely submitted in 1 cassette. MI 04/21/2025 CPT:[id number]
[2025-04-21] MEDS: Lidocaine 1% /Epi 1:100 (20ml) 20 ML Vial (07:33)
[2025-04-21] MEDS: Iodine/Potassium Iodide 14ML Bottle 1 DRP TOPICAL (07:34)
--- NOTE | 2025-04-21 07:44 | PCM.DC ---
Discharge Instructions DC O2, CPAP, BIPAP needs Home O2 Discharge instructions: No Dressing / Incision Discharge Activity: Return to Normal Activity May resume sexual activity in: 4 weeks Dressing / Incision Call your doctor if you observe: Fever of 101 or Higher, Inability to urinate, Using more than 1 pad per hour and Uncontrolled pain Follow Up Care Please Follow Up With: Ami Cornejo MD When: I will call you with pathology results in 1-2 weeks, if you feel you need an appointment please call [phone] Test Results: Test results from this visit will be discussed in further detail at your follow-up appointment, if applicable. Discharge Plan Admission Attending Provider: Ami Cornejo Primary Care Provider: Care Physician,No Primary Instructions Print Language: Ethiopian Discharge Orders/Prescriptions Prescriptions: No Action NK Referrals / Follow Up: Care Physician,No Primary [Primary Care Provider, Medical] Disposition Disposition (needs filled in before D/C Order can be placed): Home, Self Care
--- NOTE | 2025-04-21 07:45 | OP.PCM_ITS ---
Operative Report (Standard) Operative Information Date of Procedure: 04/21/25 Pre-Operative Diagnosis: CIN3 Post-Operative Diagnosis: same Surgery/Procedure Performed: LEEP professor of art: Yes Support Assistant: Randall Santillan MS3 Tasks completed by graduate assistant athletic trainer: Retracting Type of Anesthesia: Local and MAC RN Documented Start/Stop Times: Operation Date: 04/21/25 07:30 Case Time Into Pre-Op 04/21/25 05:57 Out of Pre-Op 04/21/25 07:21 Anesthesia Start 04/21/25 07:23 Into Room 04/21/25 07:23 Procedure Start 04/21/25 07:32 Procedure End 04/21/25 07:43 Procedure Start Time: 07:32 Procedure Stop Time: 07:43 Select all DRAINS/GRAFTS/IMPLANTS that apply: None Estimated Blood Loss: <5cc Fluids Replaced: 400 Specimen collected: Yes Description of specimen(s) removed: Anterior/Posterior Cervix, ECC Description of surgery: After informed consent was obtained patient was taken to the operating room she was placed in supine position she was given anesthesia. [facility] At this time rubber coated speculum was placed. Good visualization of the cervix. 10cc Lidocaine with epinephrine was injected in a circumferential fashion around the cervix performed a paracervical block. Lugol solution was then applied. The anterior aspect there appeared to be an area that did not obtain stained. Attempted use of malave look- however cervix was hard and wire broke even with gentle attempt- therefore a 2 cmx 1cm loop electrode was used to perform the LEEP procedure. First an anterior LEEP was performed on the cervix. Then a posterior LEEP. Good hemostasis was appreciated. Endocervical curettings was performed. Next the rollerball was used for hemostasis. No complications occasions with this procedure. Specimens were sent to pathology for evaluation. Instrument and lap count were correct times 2. I anticipate a normal postoperative course. Surgical Findings: normal appearing cervix- however- cervix hard on anterior aspect Complications Complications: No Admit VTE Documentation VTE Present on Admission: Yes VTE Mechan Device Prophylaxis: SCD's VTE Pharm Prophylaxis ordered?: No Reason prophylaxis not ordered: Treatment Not Indicated
--- NOTE | 2025-04-21 07:56 | PCM.POST.ANE ---
Anesthesia: Postop Eval I Current Vital Signs Temperature: 97.5 F Pulse Rate: 52 Blood Pressure: 91/63 Respiratory Rate: 16 Pulse Ox: 100 Oxygen Delivery Method: Room Air Assessment Airway patent: Yes Spontaneous unlabored respirations: Yes Mental status: Awake and Calm nausea: No Vomiting: No Anesthesia Complication: No Fluid Hydration Crystalloid volume administer (ml): 400 Total IV fluid infused: 400 Progress Note Anesthesia document: Postop Eval 1 completed: Yes
--- NOTE | 2025-04-21 08:51 | POSTOPAN2_ITS ---
Anesthesia Postop Eval I Sum Postop Eval Completion status Anesthesia document: Postop Eval 1 completed: Yes Anesthesia Postop Eval I Summary Anesthesia Postop Eval I Summary: Anesthesia Postop Eval I: Assessment Summary Airway patent Yes 04/21/25 07:57 WINDOWS SUPPORT [email or web address] Spontaneous unlabored Yes 04/21/25 07:57 WINDOWS SUPPORT ENGINEER.JDEF respirations Mental status Awake,Calm 04/21/25 07:57 WINDOWS SUPPORT ENGINEER.JDEF nausea No 04/21/25 07:57 WINDOWS SUPPORT ENGINEER.JDEF Vomiting No 04/21/25 07:57 WINDOWS SUPPORT ENGINEER.JDEF Anesthesia Postop Eval I: Fluid Summary Crystalloid volume administer 400 04/21/25 07:57 WINDOWS SUPPORT ENGINEER.JDEF (ml) Colloids volume administered ( ml) Blood Product volume administered (ml) Total IV fluid infused 400 04/21/25 07:57 WINDOWS SUPPORT ENGINEER.JDEF Anesthesia Postop Eval I: Summary Notes Anesthesia Complication No 04/21/25 07:57 WINDOWS SUPPORT ENGINEER.JDEF Anesthesia Complication Comment: Post-operative progress note Anesthesia: Postop Eval II Evaluation Mental status: Awake and Calm Pain Level: 0 nausea: No Vomiting: No Complications Anesthesia Complication: No
--- NOTE | 2025-04-21 08:51 | PCM.POSTANE2 ---
Anesthesia Postop Eval I Sum Postop Eval Completion status Anesthesia document: Postop Eval 1 completed: Yes Anesthesia Postop Eval I Summary Anesthesia Postop Eval I Summary: Anesthesia Postop Eval I: Assessment Summary Airway patent Yes 04/21/25 07:57 [email or web address] Spontaneous unlabored Yes 04/21/25 07:57 [email or web address] respirations Mental status Awake,Calm 04/21/25 07:57 [email or web address] nausea No 04/21/25 07:57 [email or web address] [email or web address] Vomiting No 04/21/25 07:57 [email or web address] [email or web address] Anesthesia Postop Eval I: Fluid Summary Crystalloid volume administer 400 04/21/25 07:57 [email or web address] (ml) Colloids volume administered ( ml) Blood Product volume administered (ml) Total IV fluid infused 400 04/21/25 07:57 [email or web address] Anesthesia Postop Eval I: Summary Notes Anesthesia Complication No 04/21/25 07:57 [email or web address] Anesthesia Complication Comment: Post-operative progress note Anesthesia: Postop Eval II Evaluation Mental status: Awake and Calm Pain Level: 0 nausea: No Vomiting: No Complications Anesthesia Complication: No
== END 2025-04-21 09:03 | disposition home or self-care (01) ==
LOC: SDC 05:49 → AC 05:50
PROVIDERS: Referring Provider Obstetrics & Gynecology; Visit Provider Obstetrics & Gynecology
PROC: 0UBC7ZZ Excision of Cervix, Via Natural or Artificial Opening (ICD-10-PCS; CPT 57522; principal; 2025-04-21 07:15)
DX: D06.9 Carcinoma in situ of cervix, unspecified (principal); N72 Inflammatory disease of cervix uteri; F17.210 Nicotine dependence, cigarettes, uncomplicated; F17.290 Nicotine dependence, other tobacco product, uncomplicated
CPT/HCPCS: 57522; 00940; 88305; 88307; J2405